=== PATIENT | female | born 1985 | race Caucasian/White ===

== ENCOUNTER 2017-02-17 15:07 | Emergency (ER) | payer BC ==
[~2017-02-17] VITALS: Ht 157.5 cm; Wt 80.4 kg
[~2017-02-17 15:07] MED LIST: FLUO20CA37 PO; FLUO40CA8 PO; HYDR-5688 PO; LOSA50TA6 PO
[2017-02-17 15:11] VITALS: Ht 157.5 cm; Wt 80.4 kg
[2017-02-17 15:27] VITALS: O2SAT 97
[2017-02-17 15:39] LABS: BASO % 0.6 %; BASO ABS # 0.05 K/uL (0-0.2); COMPLETE YES; EOS % 1.2 %; HEMATOCRIT 40.7 % (37-47); IG% 0.2 %; LYMPH % 33.5 %; LYMPH ABS # 2.99 K/uL (1.2-3.4); MEAN CELL VOLUME 87.5 fL (80-100); MEAN CORPUSCULAR HEMOGLOBIN 29.5 pg (25-34); MEAN CORPUSCULAR HGB CONC 33.7 g/dl (32-36); MEAN PLATELET VOLUME 10.3 fL (7.4-10.4); MONO % 8.7 %; NEUT % 55.8 %; PLATELET COUNT 248 K/uL (130-400); RED BLOOD COUNT 4.65 M/uL (4.2-5.4); WHITE BLOOD COUNT 8.92 K/uL (4.8-10.8)
[2017-02-17 15:51] LABS: PREG INTERNAL NEGATIVE QC NEG CLEAR BACKGROUND; PREG INTERNAL POSITIVE QC POS CONTROL LINE
[2017-02-17 15:54] LABS: BLOOD UREA NITROGEN 11 mg/dl (7-18); BUN/CREATININE RATIO 13.3 (10-20); CALCIUM 8.6 mg/dl (8.5-10.1); CARBON DIOXIDE 24 mmol/L (21-32); CHLORIDE 109 mmol/L (98-107); CREATININE 0.79 mg/dl (0.60-1.20); GLUCOSE 89 mg/dl (70-99); POTASSIUM 3.7 mmol/L (3.5-5.1); SODIUM 141 mmol/L (136-145)
--- NOTE | 2017-02-17 15:57 | DIAGNOSTIC IMAGING REPORT ---
CHEST ONE VIEW PORTABLE CLINICAL HISTORY: CHEST PAIN dyspnea COMPARISON STUDY: No previous studies for comparison. FINDINGS: The bones soft tissues and hemidiaphragms are normal. The cardiomediastinal silhouette is normal. The lungs are clear. The pulmonary vasculature is normal. IMPRESSION: Negative chest. Electronically signed by: Connor Sanchez M.D. 02/17/2017 3:55 PM Dictated Date/Time: 02/17/2017 3:51 PM
[2017-02-17 16:05] LABS: ALKALINE PHOSPHATASE 76 U/L (45-117); ALT/SGPT 28 U/L (12-78); AST/SGOT 19 U/L (15-37); CKMB/CK RATIO 1.1 (0-3.0)
[2017-02-17] MEDS ORDERED: FLUO10CA48 PO (16:10)
[2017-02-17 17:45] LABS: URINE APPEARANCE CLEAR (CLEAR); URINE BILIRUBIN NEG (NEG); URINE COLOR YELLOW; URINE NITRITE NEG (NEG); URINE SPECIFIC GRAVITY 1.024 (1.000-1.030); UROBILINOGEN NEG (NEG)
[2017-02-17 17:49] LABS: MANUAL MICROSCOPIC REQUIRED? NO; REVIEW REQ? NO
[2017-02-17 17:58] VITALS: BP 147/101; PULSE 71; TEMP 36.8; O2SAT 97
--- NOTE | 2017-02-18 00:42 | EMERGENCY ROOM VISIT NOTE ---
History Report prepared by [place]: Carolann Monte Under the Supervision of: Dr. Leon Yanez M.D. First contact with patient: 15:15 Chief Complaint: CHEST PAIN Stated Complaint: CP, HYPERTENSION SINCE LAST EVENING Nursing Triage Summary: Triage Notes: "Patient reports sharp pain in left chest that started last night. Patient denies radiation of pain states that she has tingling in her right arm that also began last night. Patient sent from [facility] for evaluation." History of Present Illness The patient is a 32 year old female who presents to the Emergency Room with complaints of improved left sided chest pain that began last night. Initially, her pain was a 9/10 in severity. She was unable to sleep secondary to her pain. She took an aspirin and was finally able to fall asleep. This morning when she went to work, her pain persisted and her left arm was tingling. This afternoon, she was seen at [facility]. Her EKG and chest x-ray were unremarkable. She given more aspirin at [facility] and was referred to the emergency room. Currently, her pain is tolerable. It has not changed with eating or drinking. She currently complains of nausea. There is a family history of heart disease, including her grandmother who had her first heart attack in her 30s. Her grandmother was not a smoker. The patient uses [employer]. The patient does not have a personal history of heart disease or blood clots. She is on 5 mg Losartan for hypertension. She has been compliant with her medication and has not missed any doses. Pt denies LOC, headache, fevers, chills, diaphoresis, visual changes, neck pain, tearing pain radiating to the back, personal history or family history of aneurysm or pulmonary embolism, uncontrolled hypertension, breathing difficulties, leg swelling, coagulation abnormalities, prolonged travel, recent surgery or immobilization, vomiting, abdominal pain, melena, hematochezia, urinary symptoms, numbness, weakness, lymphadenopathy, rash, or other complaints. Source of History: patient Onset: last night Position: chest (left) Timing: other (improved) Modifying Factors (Relieving): other (aspirin) Associated Symptoms: + nausea Note: Other symptoms: left arm tingling Review of Systems See HPI for pertinent positives and negatives. A total of ten systems were reviewed and were otherwise negative. Past Medical & Surgical Medical Problems: (1) Kidney stone Family History Patient reports no known family medical history. Social History Smoking Status: Current Every Day Smoker Housing Status: lives with significant other Occupation Status: employed Current/Historical Medications Scheduled Fluoxetine (Prozac), 10 MG PO PM Fluoxetine Hcl (Prozac), 40 MG PO QAM Losartan Potassium (Cozaar), 50 MG PO QAM Allergies Coded Allergies: No Known Allergies (Unverified , 02/17/17) Physical Exam Vital Signs Date Time Temp Pulse Resp B/P Pulse Ox O2 Delivery O2 Flow Rate FiO2 02/17/17 17:58 36.8 71 22 147/101 97 02/17/17 17:31 147/101 02/17/17 16:47 71 22 97 02/17/17 16:42 68 24 02/17/17 16:12 71 23 97 02/17/17 16:07 86 20 129/88 95 Room Air 02/17/17 16:01 129/88 02/17/17 15:37 76 22 98 02/17/17 15:31 139/98 02/17/17 15:30 82 02/17/17 15:28 147/103 02/17/17 15:27 97 Room Air 02/17/17 15:26 97 Room Air 02/17/17 15:25 86 20 163/100 97 Room Air 02/17/17 15:23 163/100 02/17/17 15:19 99 Room Air 02/17/17 15:11 36.8 70 20 162/113 97 Physical Exam GENERAL: Awake, alert, well-appearing, in no distress HENT: Normocephalic, atraumatic. Oropharynx unremarkable. EYES: Normal conjunctiva. Sclera non-icteric. NECK: Supple. No nuchal rigidity. FROM. No JVD. RESPIRATORY: Clear to auscultation. CARDIAC: Regular rate, normal rhythm. Extremities warm and well perfused. Pulses equal. ABDOMEN: Soft, non-distended. No tenderness to palpation. No rebound or guarding. No masses. RECTAL: Deferred. MUSCULOSKELETAL: Chest examination reveals no tenderness. The back is symmetrical on inspection without obvious abnormality. There is no CVA tenderness to palpation. No joint edema. LOWER EXTREMITIES: Calves are equal size bilaterally and non-tender. No edema. No discoloration. NEURO: Normal sensorium. No sensory or motor deficits noted. SKIN: No rash or jaundice noted. Medical Decision & Procedures ER Provider Diagnostic Interpretation: Radiology results as stated below per my review and radiologist interpretation CHEST ONE VIEW PORTABLE CLINICAL HISTORY: CHEST PAIN dyspnea COMPARISON STUDY: No previous studies for comparison. FINDINGS: The bones soft tissues and hemidiaphragms are normal. The cardiomediastinal silhouette is normal. The lungs are clear. The pulmonary vasculature is normal. IMPRESSION: Negative chest. Electronically signed by: Connor Sanchez M.D. 02/17/2017 3:55 PM Dictated Date/Time: 02/17/2017 3:51 PM Laboratory Results 02/17/17 15:23 Red Blood Count 4.65, Mean Corpuscular Volume 87.5, Mean Corpuscular Hemoglobin 29.5, Mean Corpuscular Hemoglobin Concent 33.7, Mean Platelet Volume 10.3, Neutrophils (%) (Auto) 55.8, Lymphocytes (%) (Auto) 33.5, Monocytes (%) (Auto) 8.7, Eosinophils (%) (Auto) 1.2, Basophils (%) (Auto) 0.6, Neutrophils # (Auto) 4.97, Lymphocytes # (Auto) 2.99, Monocytes # (Auto) 0.78, Eosinophils # (Auto) 0.11, Basophils # (Auto) 0.05 02/17/17 15:23 Test 02/17/17 15:23 02/17/17 15:31 02/17/17 17:30 White Blood Count 8.92 K/uL (4.8-10.8) Red Blood Count 4.65 M/uL (4.2-5.4) Hemoglobin 13.7 g/dL (12.0-16.0) Hematocrit 40.7 % (37-47) Mean Corpuscular Volume 87.5 fL (80-100) Mean Corpuscular Hemoglobin 29.5 pg (25-34) Mean Corpuscular Hemoglobin Concent 33.7 g/dl (32-36) Platelet Count 248 K/uL (130-400) Mean Platelet Volume 10.3 fL (7.4-10.4) Neutrophils (%) (Auto) 55.8 % Lymphocytes (%) (Auto) 33.5 % Monocytes (%) (Auto) 8.7 % Eosinophils (%) (Auto) 1.2 % Basophils (%) (Auto) 0.6 % Neutrophils # (Auto) 4.97 K/uL (1.4-6.5) Lymphocytes # (Auto) 2.99 K/uL (1.2-3.4) Monocytes # (Auto) 0.78 K/uL (0.11-0.59) Eosinophils # (Auto) 0.11 K/uL (0-0.5) Basophils # (Auto) 0.05 K/uL (0-0.2) RDW Standard Deviation 40.8 fL (36.4-46.3) RDW Coefficient of Variation 12.8 % (11.5-14.5) Immature Granulocyte % (Auto) 0.2 % Immature Granulocyte # (Auto) 0.02 K/uL (0.00-0.02) Anion Gap 8.0 mmol/L (3-11) Est Creatinine Clear Calc Drug Dose 101.4 ml/min Estimated GFR () 115.6 Estimated GFR (Non- 99.8 BUN/Creatinine Ratio 13.3 (10-20) Calcium Level 8.6 mg/dl (8.5-10.1) Total Bilirubin 0.3 mg/dl (0.2-1) Direct Bilirubin < 0.1 mg/dl (0-0.2) Aspartate Amino Transf (AST/SGOT) 19 U/L (15-37) Alanine Aminotransferase (ALT/SGPT) 28 U/L (12-78) Alkaline Phosphatase 76 U/L (45-117) Total Creatine Kinase 123 U/L (26-192) Creatine Kinase MB 1.3 ng/ml (0.5-3.6) Creatine Kinase MB Ratio 1.1 (0-3.0) Total Protein 7.3 gm/dl (6.4-8.2) Albumin 4.2 gm/dl (3.4-5.0) Lipase 104 U/L (73-393) Thyroid Stimulating Hormone (TSH) 1.850 uIu/ml (0.300-4.500) Human Chorionic Gonadotropin, Qual NEG (NEG) Bedside D-Dimer 288 ng/mlFEU (0-450) Bedside Troponin I 0.000 ng/ml (0-0.045) Urine Color YELLOW Urine Appearance CLEAR (CLEAR) Urine pH 5.0 (4.5-7.5) Urine Specific [place] 1.024 (1.000-1.030) Urine Protein NEG (NEG) Urine Glucose (UA) NEG (NEG) Urine Ketones NEG (NEG) Urine Occult Blood 3+ (NEG) Urine Nitrite NEG (NEG) Urine Bilirubin NEG (NEG) Urine Urobilinogen NEG (NEG) Urine Leukocyte Esterase NEG (NEG) Urine WBC (Auto) 1-5 /hpf (0-5) Urine RBC (Auto) 5-10 /hpf (0-4) Urine Hyaline Casts (Auto) 0 /lpf (0-5) Urine Epithelial Cells (Auto) 5-10 /lpf (0-5) Urine Bacteria (Auto) NEG (NEG) Laboratory results reviewed by me ECG Indication: chest pain Rate (beats per minute): 84 Rhythm: normal sinus Findings: no acute ischemic change, no ectopy, other (no pericarditis) Change: Pre-hospital EKG: Sinus rhythm at 82 BPM, no ectopy, no ischemia, no pericarditis. ED Course 1521: The patient was evaluated in room B2. A complete history and physical exam was performed. 1740: I reevaluated the patient. Discussed results and discharge instructions. She was reassured by her test results and did not want anything more for pain. She will use over the counter medications and agreed to follow up with her PCP. The patient is ready for discharge. Medical Decision Triage Nursing notes reviewed. The patient's presentation and history were concerning for chest pain. Etiologies such as cardiac ischemia, aortic dissection, pulmonary embolism, pneumonia, pneumothorax, musculoskeletal, infections, gastrointestinal, as well as others were entertained. The patient had a normal ECG x 2. Patient's CBC, LFTs, lipase, chemistry panel , cardiac markers, d-dimer and urinalysis were unremarkable. Chest x-ray was unremarkable. On reassessment she was still noting some discomfort but did not want any analgesia. She was reassured by the negative testing. As she has had pain since yesterday and it has been constant her blood work should show issues if this was heart related. She notes no exertional symptoms either. I suspect a musculoskeletal source or possible pleurisy. The patient does have some mild hypertension. She will follow-up closely as an outpatient. If she worsens in any way she will be back. I gave my usual and customary discussion regarding this issue. By the evaluation outlined above other emergent etiologies such as those listed in the differential, as well as others, were deemed relatively unlikely. The patient was informed about the findings as listed above. All questions were answered and she was pleased with the treatment. Return instructions were outlined and the patient was discharged in stable condition. The patient was referred to her PCP for follow-up for a recheck of the current condition. The chart was completed utilizing [employer] Speech voice recognition software. Grammatical errors, random word insertions, pronoun errors, and incomplete sentences are an occasional consequence of this system due to software limitations, ambient noise, and hardware issues. Any formal questions or concerns about the content, text, or information contained within the body of this dictation should be directly addressed to the physician for clarification. Impression Primary Impression: Substernal chest pain Scribe Attestation The scribe's documentation has been prepared under my direction and personally reviewed by me in its entirety. I confirm that the note above accurately reflects all work, treatment, procedures, and medical decision making performed by me. Departure Information Dispostion Home / Self-Care Referrals Colin Harper D.O.Int.Med. (PCP) Forms HOME CARE DOCUMENTATION FORM, IMPORTANT VISIT INFORMATION Patient Instructions My [facility] Additional Instructions CHEST PAIN INSTRUCTIONS: Ibuprofen(Motrin, Advil) may be used for fever or pain. Use 600mg every six hours as needed. Take with food. Avoid using more than 2400mg in a 24 hour period. Do not use 2400mg per day for more than three consecutive days without physician direction. Prolonged inappropriate use can lead to stomach upset or ulcers. (AND/OR) Acetaminophen(Tylenol) may be used for fever or pain. Use 1000mg every six hours as needed. Avoid using more than 4000mg in a 24 hour period. Rest and drink plenty of fluids as tolerated. Continue current medications. Avoid strenuous activities and anything that worsens your pain. Resume normal activities once your symptoms resolve. Return to the ER immediately for worsening or persistent chest pain, abdominal pain, vomiting, fevers, chest pains, difficulty breathing, worsening of your condition, or as needed. Follow up with your primary physician in 2-3 days for a recheck of your current condition and for your blood pressure.
[2017-04-28] MEDS ORDERED: ALPR0.25 PO (08:12)
== END 2017-02-17 17:59 | disposition home or self-care (01) ==
LOC: C.EDB 15:08
DX: R07.2 Precordial pain (principal); R11.0 Nausea; I10 Essential (primary) hypertension; Z82.49 Family history of ischemic heart disease and other diseases of the circulatory system; F17.210 Nicotine dependence, cigarettes, uncomplicated

== ENCOUNTER → 2017-03-30 | Outpatient (CLI) | payer BC ==
[~2017-03-30] MED LIST changes: +ALPR0.25 PO; +FLUO10CA48 PO; -FLUO20CA37 PO; -HYDR-5688 PO; +TRD10 PO
--- NOTE | 2017-03-30 16:19 | MAMMOGRAPHY REPORT ---
UNILATERAL RIGHT DIGITAL DIAGNOSTIC MAMMOGRAM TOMOSYNTHESIS WITH CAD AND TARGETED RIGHT ULTRASOUND: 03/30/2017 CLINICAL HISTORY: 32 year-old woman presents 6 months after an excisional biopsy of a mass in the 9: 00 right breast. Incidentally seen at pathology was a small focus of atypical ductal hyperplasia. Patient presents to establish new baseline after surgery, and has also been experiencing pain along the inferior and medial right breast over the past 2 weeks. TECHNIQUE: Right breast tomosynthesis in addition to standard 2D mammography was performed. Current study was also evaluated with a Computer Aided Detection (CAD) system. COMPARISON: Comparison is made to exams dated: 10/20/2016 breast MRI, 08/18/2016 mammogram, 08/18/2016 localization, 08/04/2016 mammogram, 01/28/2016 ultrasound biopsy, and 01/28/2016 mammogram - [facility]. BREAST COMPOSITION: The tissue of the right breast is heterogeneously dense, which may obscure smal l masses. FINDINGS: A dominant circumscribed mass with associated ribbon-shaped biopsy marker is no longer see n in the 9:00 middle and posterior right breast, concordant with the surgical excision. There are s cattered benign-appearing punctate microcalcifications. No suspicious mass, architectural distortio n or cluster of suspicious microcalcifications is seen. Real-time high-resolution ultrasound was performed along the inferior extending to 3:00 right breast , in the areas of pain pointed out by the patient. Incidental note is made of an anechoic benign st able cyst in the 8:00 right breast, 3 cm from the nipple, measuring 5.2 mm. Throughout the remainde r of the visualized right breast, normal fibroglandular tissue is seen without a suspicious solid or cystic mass. IMPRESSION: ACR-BI-RADS CATEGORY 3: PROBABLY BENIGN, TARGETED ULTRASOUND ACR-BI-RADS CATEGORY 3: IN OBABLY BENIGN 1. There is no suspicious mammographic or sonographic abnormality to explain the nonfocal right inf erior and medial mastalgia. Therefore, clinical follow-up is recommended. 2. Given the incidental finding of a small amount of atypia at pathology during excision of a domin ant right breast mass, would consider bilateral screening mammography in 6 months, particularly to e stablish baseline in the left breast. Then consider alternating mammography and MRI, given the dahiana ent's potential increased risk of developing breast cancer. These results and recommendations were discussed with the patient at the time of the exam. Approximately 10% of breast cancers are not detected with mammography. A negative mammographic repor t should not delay biopsy if a clinically suggestive mass is present. Janette Smallwood M.D. ay/:03/30/2017 15:01:16 Administrative Dietitian: Ludy SORENSEN(Horacio)(Alfred), [facility] letter sent: Follow Up Recommended 3 BI-RADS Code: ACR-BI-RADS Category 3: Probably Benign Ultrasound BI-RADS: ACR-BI-RADS Category 3: P robably Benign
== END | disposition home or self-care (01) ==
LOC: C.MAMM 09:51
PROVIDERS: ATTEND Internal Medicine Hematology & Oncology
DX: N64.4 Mastodynia (principal); R92.8 Other abnormal and inconclusive findings on diagnostic imaging of breast

== ENCOUNTER → 2017-04-20 | Outpatient (CLI) | payer BC | END | disposition home or self-care (01) | LOC: C.PAPS 11:52 | PROVIDERS: ATTEND Physician Assistant | DX: N92.6 Irregular menstruation, unspecified (principal) ==

== ENCOUNTER → 2017-05-03 | Outpatient (CLI) | payer BC ==
[2017-05-03 13:02] LABS: HEMATOCRIT 41.5 % (37-47); MEAN CELL VOLUME 88.5 fL (80-100); MEAN CORPUSCULAR HEMOGLOBIN 28.6 pg (25-34); MEAN CORPUSCULAR HGB CONC 32.3 g/dl (32-36); MEAN PLATELET VOLUME 10.4 fL (7.4-10.4); PLATELET COUNT 258 K/uL (130-400); RED BLOOD COUNT 4.69 M/uL (4.2-5.4); WHITE BLOOD COUNT 8.48 K/uL (4.8-10.8)
[2017-05-03 13:37] LABS: PREG INTERNAL NEGATIVE QC NEG CLEAR BACKGROUND; PREG INTERNAL POSITIVE QC POS CONTROL LINE
== END | disposition home or self-care (01) ==
LOC: C.LAB1850 12:24
PROVIDERS: ATTEND Obstetrics & Gynecology
DX: T83.32XA Displacement of intrauterine contraceptive device, initial encounter (principal); Y83.1 Surgical operation with implant of artificial internal device as the cause of abnormal reaction of the patient, or of later complication, without mention of misadventure at the time of the procedure; N93.9 Abnormal uterine and vaginal bleeding, unspecified

== ENCOUNTER → 2017-05-07 | Day surgery (SDC) | payer BC ==
[2017-04-28 08:12] VITALS: Ht 157.5 cm; Wt 77.3 kg
[~2017-05-07] VITALS: Ht 157.5 cm; Wt 77.3 kg
[~2017-05-07] MED LIST changes: +ATROPINE SULFATE 0.1 MG/ML 5ML SYR IV PRN; +BUPIVACAINE 0.5 % 5 MG/1 ML MPF 30ML VIAL ONE; +DEXAMETHASONE SOD INJ 4 MG/ML VIAL ONE; +EpHEDrine SULFATE INJ 50 MG/ML AMP IV PRN; +FENTANYL CITRATE INJ 50 MCG/1 ML 2 ML VIAL ONE; +FLUMAZENIL 0.1 MG/1 ML 10 ML VIAL IV PRN; +GLYCOPYRROLATE INJ 0.2 MG/ML VIAL ONE; +IBUPROFEN 600 MG TAB PO PRN; +KETOROLAC TROMETHAMINE 30 MG/ML VIAL IV. PRN; +KETOROLAC TROMETHAMINE 30 MG/ML VIAL ONE; +LABETALOL HCL IV 5 MG/ML 20ML IV PRN; +LACTATED RINGER'S 1000ML 1,000 ML IV SCH; +LIDOCAINE HCL 2% 2 ML VIAL (20MG/ML) ONE; +MIDAZOLAM HCL 1 MG/ML 2ML VIAL ONE; +NALOXONE HCL 0.4 MG/1 ML VIAL/CARP IV PRN; +NEOSTIGMINE METHYLSULFATE 5 MG/5 ML SYR ONE; +ONDANSETRON INJ 2 MG/ML 2 ML VIAL IV PRN; +ONDANSETRON INJ 2 MG/ML 2 ML VIAL ONE; +OXYCODONE/ACETAMINOPHEN 5-325 TAB PO PRN; +PROMETHAZINE HCL INJ 12.5 MG in SODIUM CHLORIDE 0.9% 50ML 50 ML IV PRN; +PROPOFOL IV EMULSION 10 MG/ML 20 ML VIAL IV ONE; +ROCURONIUM BROMIDE 10 MG/ML 5 ML VIAL ONE; +SODIUM CHLORIDE 0.9% 1000ML 1,000 ML IV SCH
[2017-05-07 05:47] VITALS: BP 147/99; PULSE 76; TEMP 37; O2SAT 96
--- NOTE | 2017-05-07 07:23 | History & Physical Bridge Note ---
H&P Re-Evaluation Bridge Note: I have examined the patient, reviewed the History & Physical and in the interval since the performance of the History & Physical I have noted the following changes of clinical significance: No changes noted. Today I confirmed with patient that she does want tubal ligation. She is sure she is done childbearing. She wants to have IUD mirena, placed after I remove the misplaced IUD to see if that can help her bleeding. We discussed all this before and these are her final decisions. She is aware of risks, alternatives and complications of all.
--- NOTE | 2017-05-07 08:58 | Discharge Instructions ---
Discharge Instructions Date of Service May 07, 2017. Admission Reason for Admission: Malpositioned Iud, Abnormal Uterine Bleeding, Enco Discharge Discharge Diagnosis / Problem: s/p surgery Discharge Goals Goal(s): Routine recovery after surgery Activity Recommendations Activity Limitations: as noted below . Instructions / Follow-Up Instructions / Follow-Up ACTIVITY RECOMMENDATIONS: * Rest the first 2-3 days. You should be back to your normal activity levels by day 3. * No heavy lifting for 2 weeks. * No intercourse, tampons or douching for 1-2 weeks. * You may shower the next day. * Do not drive anytime that you are taking narcotic pain medicines. RETURN TO SCHOOL/WORK: * May return to school or work after 1-2 days. DIET: Nausea may occur in the immediate post-operative period. If so, take clear liquids such as tea, bouillon, apple juice until all nausea has subsided, then resume usual diet. MEDICATIONS: Resume previous medications unless instructed otherwise by your surgeon. Ibuprofen 200mg 2-3 tablets every 4-6 hours as needed -- OR -- Aleve 2 tablets every 8-12 hours as needed for post-operative discomfort Medications are over the counter. Tylenol may be used if above medications are contraindicated or not preferred. Medication should be taken with food or milk. Do not take on an empty stomach. SPECIAL CARE INSTRUCTIONS: * Check temperature twice daily for one week. report any elevation over 101 degrees. * You may experience some vagina spotting and/or bleeding. This is normal for 1 -2 weeks and should not be heavier than a normal period. If it is unusual in amount, call your physician. * Post-operative discomfort may consist of a sore throat, a "bloated" feeling and pain in the shoulders. these are normal symptoms, which usually only last for 2-3 days. * Remove band-aids tomorrow and shower. There is no need to replace band-aids unless there is drainage or discomfort. FOLLOW UP VISIT: I planned for a post-operative visit on june 17 at 215pm, the office will call you wednesday to make sure its ok with you, I want to do an ultrasound the same day to check the IUD placement. Current Hospital Diet Patient's current hospital diet: Discharge Diet Recommended Diet: Regular Diet Procedures Procedures Performed: Hysteroscopy Dilation Currettage; Intrauterine device Removal and Reinsertion; Laparoscopic tubal ligation Pending Studies Studies pending at discharge: yes List of pending studies: pathology Medical Emergencies . Who to Call and When: Medical Emergencies: If at any time you feel your situation is an emergency, please call 911 immediately. . Non-Emergent Contact Non-Emergency issues call your: Account Development Associate . . "Provider Documentation" section prepared by Joyce Witt. . VTE Core Measure Inpt VTE Proph given/why not?: Treatment not indicated
--- NOTE | 2017-05-07 09:02 | [facility] Post Operative Brief Note ---
Immediate Operative Summary Operative Date May 07, 2017. Pre-Operative Diagnosis Malpositioned intrauterine device Abnormal uterine bleeding Encounter for Sterilization Post-Operative Diagnosis Same as preop Procedure(s) Performed Hysteroscopy Dilation Currettage; Intrauterine device Removal and Reinsertion; Biilateral laparoscopic tubal ligation Surgeon Dr. Witt Front Desk Representative Surgeon(s) none Estimated Blood Loss 0 ml Findings cervix visualized and stem of iud noted. with hysteroscope can see right arm of iud embedded in right cervix. uterus sounds to 9cm. extremely difficult cavity to at first visualize. large amount of curettings, ? polyp, cavity more normal shaped after curettage. ostia not well seen. saline deficit 410cc. laparoscopic findings--nl liver edge, normal uterus and ovaries bilaterally. normal fallopian tubes. evidence of endometriosis along left uterosacral ligament. no evidence of perforation of uterus, no fluid of significance in cul-de-sac. IUD placed as uterus observed with laparoscope and no issues identified. Fluids (cc crystalloids) 1100 Specimens Cultures of vagina sent for chlamydia/gonorrhea/RNA Permanent specimen A: endometrial curettings explanted IUD not sent to lab, as per surgeon Drains none Anesthesia general Complication(s) None Disposition Recovery Room / PACU
[2017-05-07] MEDS: HYDROmorphone INJ 1 MG/ML SYR IV PRN ×4 (09:05→09:20)
--- NOTE | 2017-05-07 09:29 | Anesthesiology Progress Note ---
Anesthesia Post Op Note Date & Time May 07, 2017 at 09:29 Vital Signs Pain Intensity: 5 Vital Signs Past 12 Hours Date Time Temp Pulse Resp B/P (MAP) Pulse Ox O2 Delivery O2 Flow Rate FiO2 05/07/17 09:25 36.7 82 16 138/95 91 Room Air 05/07/17 09:15 82 16 137/95 96 Oxymask 10 05/07/17 09:05 83 16 145/95 92 Oxymask 10 05/07/17 08:59 36.0 77 16 151/72 97 Oxymask 10 05/07/17 05:47 37 76 18 147/99 (115) 96 Room Air Notes Mental Status: alert / awake / arousable, participated in evaluation Pt Amnestic to Procedure: Yes Nausea / Vomiting: adequately controlled Pain: adequately controlled Airway Patency, RR, SpO2: stable & adequate BP & HR: stable & adequate Hydration State: stable & adequate Anesthetic Complications: no major complications apparent
--- NOTE | 2017-05-07 09:41 | OPERATIVE REPORT ---
DATE OF OPERATION: 05/07/2017 PREOPERATIVE DIAGNOSES: 1. Malpositioned intrauterine device. 2. Abnormal uterine bleeding. 3. Desires sterilization. POSTOPERATIVE DIAGNOSIS: Same. PROCEDURES: 1. Dilatation and curettage. 2. Hysteroscopy. 3. Removal of embedded IUD, reinsertion of IUD. 4. Bilateral laparoscopic tubal sterilization. SURGEON: Dr. Joyce Witt. BANK SECRECY ACT OFFICER: None. IV FLUIDS: 1100 mL. ANESTHESIA: General. EBL: Zero. FINDINGS: Hysteroscopic findings included embedded right arm of the IUD notably in the cervix. The cavity originally quite obscured by tissue. Large amounts of tissue noted at curettage and then cavity with more normal shape. [place] not seen. Uterus sounded to 9 cm. IUD strings trimmed to approximately 1 cm. Uterine descent under anesthesia, grade 2-3. The laparoscopic findings include normal liver edge, normal uterus, tubes and ovaries bilaterally. Endometriosis evident along the right uterosacral ligament. No other evidence of endometriosis. INDICATIONS: A 32-year-old 2, para 2 who presented to the office with malpositioned IUD that was attempted to be removed; however was unsuccessful. It was thought to be embedded and it was recommended that she proceed to the operating room. Of note, the patient received the IUD several years ago to try to control her vaginal bleeding as well, which is described as heavy periods. It never helped those symptoms and she never followed up. She is sure she has done her childbearing. She desired permanent sterilization today but also reattempt at insertion of Mirena IUD once the old one was removed in order to try to better control her vaginal bleeding. She was given many options and desired to proceed in this fashion. PROCEDURE: The patient was taken to the operating room and identified. After adequate general anesthesia was obtained, she was placed in the dorsal lithotomy position and prepped and draped in the usual sterile fashion. The bladder was drained for clear yellow urine. A weighted speculum and anterior retractor were placed to visualize the cervix which was grasped on its anterior lip with an Allis clamp. The stem of the Mirena IUD was visible. It was grasped and gently tugged upon however the IUD did not remove easily. For this reason, the hysteroscope was introduced. Using the hysteroscope in the cervical canal, it was evident that the right arm of the IUD was imbedded in the right aspect of the cervix. Using a grasper through the operating channel the arm was teased away and then the IUD was able to be removed with gentle traction. The IUD was discarded. At this point, the cervix was dilated to 23 using Hegar dilators. The uterus sounded to 9 cm. The hysteroscope was introduced and the cavity was difficult to see and distention was difficult. There was evidence of significant tissue but the saline deficit had already climbed to 300 mL. For that reason, the hysteroscopy portion of the procedure was paused in order to evaluate if there was any perforation or excess fluid in the pelvis that could indicate perforation via laparoscopy since laparoscopy was planned due to the patient's desire for sterilization by tubal coagulation. The acorn uterine manipulator was gently placed through the cervical os and connected to the Allis clamp that remained to allow for uterine manipulation and the weighted speculum was removed. The bladder was drained again. At this point, the patient was repositioned in flat positioning as she had been placed in Trendelenburg and the seal extrusion operator went to the abdomen. A knife was used to create an infraumbilical skin incision and a Veress needle was placed intraperitoneally with an opening pressure of 6 mmHg. A CO2 pneumoperitoneum was created. The skin incision was stretched and the 12 mm trocar was placed using the straight camera into the abdomen. Once intraperitoneal entry was noted the laparoscope was switched to the operating scope. The patient was placed in steep Trendelenburg. Using a blunt probe, the bowel was teased away from the planned operative santos and the uterus was manipulated in order to visualize the pelvis and abdomen with the findings as noted above. The right fallopian tube was put on stretch. The Kleppinger forceps was used with an impedance monitor to coagulate the right fallopian tube in approximately a 3 cm segment 2-3 cm from the right cornua. Left fallopian tube was identified and coagulated in a similar fashion. There was no excess fluid noted within the pelvic cavity and therefore perforation was not suspected. At this point, the certified pharmacist assistant RN held the laparoscope while the surgeon then went back down to do hysteroscopy. The uterus was curettaged to a gritty consistency. The hysteroscope was reintroduced and the cavity was better visualized as noted above. There did not seem to be any distortion of the cavity or lesion or reason not to retry placement of IUD. For that reason, the Mirena IUD was prepared, placed and the strings were trimmed to approximately 1 cm. As the procedure was viewed laparoscopically there did not appear to be any perforation or misplacement of the IUD and again there was no excess fluid in the pelvis to indicate possible prior perforation. At this point the procedures were terminated. All the instruments were removed. The laparoscope was removed. The CO2 gas was allowed to escape from the patient's abdomen and the trocar was removed. The infraumbilical incision was closed with a single interrupted 0 Vicryl suture in the subcutaneous tissue followed by 4-0 Vicryl in a subcuticular fashion at the skin. Dermabond was applied. The patient was returned to supine position. She was awoken from anesthesia and transferred to recovery room in stable condition. All sponge, lap and needle counts were correct x2. I attest to the content of the Intraoperative Record and any orders documented therein. Any exceptions are noted below. MTDD
[2017-05-07 09:50] VITALS: BP 152/70; PULSE 72; TEMP 36.8; O2SAT 97
[2017-05-07 10:20] VITALS: BP 140/81; PULSE 76; TEMP 36.8; O2SAT 95
[2017-05-10 07:28] LABS: CHLAMYDIA TRACH RNA*** NOT DETECTED (NOT DETECTED); GC (NEIS GONORRHOEAE)RNA** NOT DETECTED (NOT DETECTED)
== END | disposition home or self-care (01) ==
LOC: C.ACU 05:25
PROVIDERS: ATTEND Obstetrics & Gynecology
DX: T83.32XA Displacement of intrauterine contraceptive device, initial encounter (principal); Y83.8 Other surgical procedures as the cause of abnormal reaction of the patient, or of later complication, without mention of misadventure at the time of the procedure; Z30.2 Encounter for sterilization; N93.9 Abnormal uterine and vaginal bleeding, unspecified; I10 Essential (primary) hypertension; F42.9 Obsessive-compulsive disorder, unspecified; E53.8 Deficiency of other specified B group vitamins; Z82.49 Family history of ischemic heart disease and other diseases of the circulatory system; Z83.3 Family history of diabetes mellitus; Z82.3 Family history of stroke; Z79.899 Other long term (current) drug therapy

== ENCOUNTER 2017-08-29 06:10 | Emergency (ER) | payer BC ==
[~2017-08-29] VITALS: Ht 157.5 cm; Wt 83.6 kg
[~2017-08-29 06:10] MED LIST changes: -ATROPINE SULFATE 0.1 MG/ML 5ML SYR IV PRN; -BUPIVACAINE 0.5 % 5 MG/1 ML MPF 30ML VIAL ONE; -DEXAMETHASONE SOD INJ 4 MG/ML VIAL ONE; -EpHEDrine SULFATE INJ 50 MG/ML AMP IV PRN; -FENTANYL CITRATE INJ 50 MCG/1 ML 2 ML VIAL ONE; -FLUMAZENIL 0.1 MG/1 ML 10 ML VIAL IV PRN; -GLYCOPYRROLATE INJ 0.2 MG/ML VIAL ONE; -IBUPROFEN 600 MG TAB PO PRN; -KETOROLAC TROMETHAMINE 30 MG/ML VIAL IV. PRN; -KETOROLAC TROMETHAMINE 30 MG/ML VIAL ONE; -LABETALOL HCL IV 5 MG/ML 20ML IV PRN; -LACTATED RINGER'S 1000ML 1,000 ML IV SCH; -LIDOCAINE HCL 2% 2 ML VIAL (20MG/ML) ONE; -MIDAZOLAM HCL 1 MG/ML 2ML VIAL ONE; -NALOXONE HCL 0.4 MG/1 ML VIAL/CARP IV PRN; -NEOSTIGMINE METHYLSULFATE 5 MG/5 ML SYR ONE; -ONDANSETRON INJ 2 MG/ML 2 ML VIAL IV PRN; -ONDANSETRON INJ 2 MG/ML 2 ML VIAL ONE; -OXYCODONE/ACETAMINOPHEN 5-325 TAB PO PRN; -PROMETHAZINE HCL INJ 12.5 MG in SODIUM CHLORIDE 0.9% 50ML 50 ML IV PRN; -PROPOFOL IV EMULSION 10 MG/ML 20 ML VIAL IV ONE; -ROCURONIUM BROMIDE 10 MG/ML 5 ML VIAL ONE; -SODIUM CHLORIDE 0.9% 1000ML 1,000 ML IV SCH; -TRD10 PO
[2017-08-29 06:11] VITALS: TEMP 36.9; Ht 157.5 cm; Wt 83.6 kg
[2017-08-29] MEDS ORDERED: ONDANSETRON INJ 2 MG/ML 2 ML VIAL IV STA (06:41)
[2017-08-29] MEDS ORDERED: MoRPHine SULFATE 4 MG/ML 1 ML CARP\\VIAL IV STA (06:41)
[2017-08-29] MEDS ORDERED: SODIUM CHLORIDE 0.9% 1000ML 1,000 ML IV STA (06:41)
[2017-08-29] MEDS ORDERED: SODIUM CHLORIDE 0.9% 500ML 500 ML IV STA (06:41)
[2017-08-29 06:56] LABS: BASO % 0.4 %; BASO ABS # 0.04 K/uL (0-0.2); COMPLETE YES; EOS % 2.3 %; HEMATOCRIT 41.9 % (37-47); IG% 0.6 %; LYMPH % 20.9 %; LYMPH ABS # 2.11 K/uL (1.2-3.4); MEAN CELL VOLUME 86.9 fL (80-100); MEAN CORPUSCULAR HEMOGLOBIN 28.2 pg (25-34); MEAN CORPUSCULAR HGB CONC 32.5 g/dl (32-36); MEAN PLATELET VOLUME 9.5 fL (7.4-10.4); MONO % 9.5 %; NEUT % 66.3 %; PLATELET COUNT 254 K/uL (130-400); RED BLOOD COUNT 4.82 M/uL (4.2-5.4); WHITE BLOOD COUNT 10.09 K/uL (4.8-10.8)
[2017-08-29 07:06] LABS: ALT/SGPT 24 U/L (12-78); AST/SGOT 12 U/L (15-37); BLOOD UREA NITROGEN 13 mg/dl (7-18); BUN/CREATININE RATIO 14.5 (10-20); CALCIUM 8.4 mg/dl (8.5-10.1); CARBON DIOXIDE 24 mmol/L (21-32); CHLORIDE 105 mmol/L (98-107); CREATININE 0.87 mg/dl (0.60-1.20); GLUCOSE 98 mg/dl (70-99); MAGNESIUM 2.3 mg/dl (1.8-2.4); POTASSIUM 3.9 mmol/L (3.5-5.1); SODIUM 138 mmol/L (136-145)
[2017-08-29 07:09] LABS: ALKALINE PHOSPHATASE 96 U/L (45-117)
--- NOTE | 2017-08-29 07:14 | EMERGENCY ROOM VISIT NOTE ---
History Report prepared by [place]enton: Louis Miller Under the Supervision of: Dr. Paty Roland M.D. First contact with patient: 06:34 Chief Complaint: ABDOMINAL PAIN Stated Complaint: SEVERE ABDOMINAL PAIN Nursing Triage Summary: Pt reports mid abd pain that began yesterday at 1100. Denies n/v/d. Pt states, "I was perfectly fine at a baseball game then all the sudden got these shooting pains." Denies urinary s/sx. History of Present Illness The patient is a 32 year old female who presents to the Emergency Room with complaints of constant severe abdominal pain beginning yesterday at 1100. The patient states that she was at a baseball game with her family and had to leave when she began experiencing "excruciating" abdominal pain. She denies eating anything at the game, and notes that she tried taking a laxative and was able to have a bowel movement with no relief to her symptoms. She notes that the pain does not worsen with deep breaths. She denies any vomiting, diarrhea, painful urination, or changes in her bowel movements. The patient has a previous history of hypertension and OCD, and notes that she takes Prozac for her OCD symptoms. Source of History: patient Onset: 1100 yesterday Position: abdomen Symptom Intensity: excruciating Timing: constant Modifying Factors (Worsening): other (does not worsen with deep breathing) Associated Symptoms: No vomiting, No diarrhea, No urinary symptoms Note: no changes in her bowel movements Review of Systems See HPI for pertinent positives & negatives. A total of 10 systems reviewed and were otherwise negative. Past Medical & Surgical Medical Problems: (1) Kidney stone Family History Patient reports no known family medical history. Social History Smoking Status: Current Every Day Smoker Alcohol Use: occasionally Drug Use: none Marital Status: Housing Status: lives with significant other Occupation Status: employed Current/Historical Medications Scheduled Fluoxetine (Prozac), 10 MG PO PM Fluoxetine Hcl (Prozac), 40 MG PO QAM Losartan Potassium (Cozaar), 50 MG PO QAM Scheduled PRN Alprazolam (Xanax), 0.25 MG PO DAILY PRN for Anxiety Ketorolac Tromethamine (Ketorolac Tromethamine), 1 TAB PO UD PRN for NECK PAIN Allergies Coded Allergies: No Known Allergies (Unverified , 08/29/17) Physical Exam Vital Signs Date Time Temp Pulse Resp B/P (MAP) Pulse Ox O2 Delivery O2 Flow Rate FiO2 08/29/17 11:30 156/113 08/29/17 11:10 90 20 95 08/29/17 11:00 150/106 08/29/17 10:44 95 08/29/17 10:41 159/114 08/29/17 10:26 95 20 166/111 98 Room Air 08/29/17 09:54 93 20 175/117 98 Room Air 08/29/17 07:42 90 20 168/116 97 Room Air 08/29/17 06:11 36.9 103 18 179/128 98 Room Air Physical Exam Vital signs reviewed. General: Well-appearing, some discomfort, in no significant distress. HEENT: No scleral icterus, PERRLA, neck supple. Atraumatic. Cardiovascular: Regular rate and rhythm, no extra sounds. Pulmonary: Clear to auscultation bilaterally, normal work of breathing. Abdomen: Holding upper abdomen, mild tenderness to epigastric region, no rebound or guarding, no CVA tenderness, soft, nondistended, positive bowel sounds. Musculoskeletal: Atraumatic, no peripheral edema. Neurologic: Patient awake alert and oriented x 3 Skin: Warm, dry, no rash Medical Decision & Procedures ER Provider Diagnostic Interpretation: Radiology results as stated below per my review and radiologist interpretation: CHEST ONE VIEW PORTABLE HISTORY: Right-sided chest pain. COMPARISON: Chest 02/17/2017. FINDINGS: The lungs are clear. Cardiac silhouette is normal in size. No pleural effusions. No pneumothorax. IMPRESSION: No acute process. Electronically signed by: Tito Enriquez M.D. 08/29/2017 8:12 AM ABDOMINAL ULTRASOUND, RIGHT UPPER QUADRANT HISTORY: RUQ pain. COMPARISON: Abdomen and pelvis CT 01/14/2016. FINDINGS: Pancreas: The pancreas demonstrates a normal echotexture. Liver: No hepatic masses. 22 cm in length. Gallbladder: No gallbladder wall thickening. No gallstones. CBD: 5 mm. Right kidney: No hydronephrosis. IMPRESSION: 1. Normal gallbladder. No gallstones. 2. Mild hepatomegaly. Electronically signed by: Tito Enriquez M.D. 08/29/2017 7:49 AM ABDOMEN AND PELVIS CT WITH IV CONTRAST CT DOSE: 542.22 mGy.cm HISTORY: Epigastric abdominal pain. TECHNIQUE: Multiaxial CT images of the abdomen and pelvis were performed following the use of intravenous contrast. A dose lowering technique was utilized adhering to the principles of ALARA. COMPARISON STUDY: Abdomen and pelvis CT 01/14/2016. FINDINGS: The lung bases are clear. No pneumoperitoneum. No pneumatosis. No fractures within the visualized osseous structures. The liver, gallbladder, pancreas, spleen, and adrenal glands are unremarkable. There is a subcentimeter hypodense lesions seen within each kidney with the largest on the right measuring 7 mm. These are too small to characterize. No hydronephrosis. No retroperitoneal lymphadenopathy. 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 There is inflammatory change surrounding the thrombosed superior mesenteric artery. Therefore, this likely represents an acute thrombosis. The celiac artery and aorta are patent. The renal arteries are patent. No bowel wall thickening or obstruction at this time. Prior appendectomy. An intrauterine device is in good position. Normal bladder. IMPRESSION: 1. 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 There is distention of the superior mesenteric artery with surrounding inflammatory change suggestive of an acute thrombosis. This most likely represents an acute dissection. However, an underlying vasculitis could also have a similar appearance. 2. No evidence for bowel wall thickening at this time to suggest ischemic change. 3. Findings were discussed with Dr. Paty Roland at 10:10 AM on 08/29/2017. Electronically signed by: Tito Enriquez M.D. 08/29/2017 10:08 AM Laboratory Results 08/29/17 06:42 Red Blood Count 4.82, Mean Corpuscular Volume 86.9, Mean Corpuscular Hemoglobin 28.2, Mean Corpuscular Hemoglobin Concent 32.5, Mean Platelet Volume 9.5, Neutrophils (%) (Auto) 66.3, Lymphocytes (%) (Auto) 20.9, Monocytes (%) (Auto) 9.5, Eosinophils (%) (Auto) 2.3, Basophils (%) (Auto) 0.4, Neutrophils # (Auto) 6.69, Lymphocytes # (Auto) 2.11, Monocytes # (Auto) 0.96, Eosinophils # (Auto) 0.23, Basophils # (Auto) 0.04 08/29/17 06:42 Test 08/29/17 06:42 08/29/17 06:54 08/29/17 10:31 White Blood Count 10.09 K/uL (4.8-10.8) Red Blood Count 4.82 M/uL (4.2-5.4) Hemoglobin 13.6 g/dL (12.0-16.0) Hematocrit 41.9 % (37-47) Mean Corpuscular Volume 86.9 fL (80-100) Mean Corpuscular Hemoglobin 28.2 pg (25-34) Mean Corpuscular Hemoglobin Concent 32.5 g/dl (32-36) Platelet Count 254 K/uL (130-400) Mean Platelet Volume 9.5 fL (7.4-10.4) Neutrophils (%) (Auto) 66.3 % Lymphocytes (%) (Auto) 20.9 % Monocytes (%) (Auto) 9.5 % Eosinophils (%) (Auto) 2.3 % Basophils (%) (Auto) 0.4 % Neutrophils # (Auto) 6.69 K/uL (1.4-6.5) Lymphocytes # (Auto) 2.11 K/uL (1.2-3.4) Monocytes # (Auto) 0.96 K/uL (0.11-0.59) Eosinophils # (Auto) 0.23 K/uL (0-0.5) Basophils # (Auto) 0.04 K/uL (0-0.2) RDW Standard Deviation 42.0 fL (36.4-46.3) RDW Coefficient of Variation 13.2 % (11.5-14.5) Immature Granulocyte % (Auto) 0.6 % Immature Granulocyte # (Auto) 0.06 K/uL (0.00-0.02) Nucleated RBC Absolute Count (auto) 0.02 K/uL (0-0) Nucleated Red Blood Cells % 0.2 % Anion Gap 9.0 mmol/L (3-11) Est Creatinine Clear Calc Drug Dose 93.9 ml/min Estimated GFR () 102.9 Estimated GFR (Non- 88.8 BUN/Creatinine Ratio 14.5 (10-20) Calcium Level 8.4 mg/dl (8.5-10.1) Magnesium Level 2.3 mg/dl (1.8-2.4) Total Bilirubin 0.5 mg/dl (0.2-1) Direct Bilirubin < 0.1 mg/dl (0-0.2) Aspartate Amino Transf (AST/SGOT) 12 U/L (15-37) Alanine Aminotransferase (ALT/SGPT) 24 U/L (12-78) Alkaline Phosphatase 96 U/L (45-117) Total Protein 7.2 gm/dl (6.4-8.2) Albumin 4.0 gm/dl (3.4-5.0) Lipase 111 U/L (73-393) Urine Color YELLOW Urine Appearance CLEAR (CLEAR) Urine pH 7.0 (4.5-7.5) Urine Specific [place] 1.005 (1.000-1.030) Urine Protein NEG (NEG) Urine Glucose (UA) NEG (NEG) Urine Ketones NEG (NEG) Urine Occult Blood 1+ (NEG) Urine Nitrite NEG (NEG) Urine Bilirubin NEG (NEG) Urine Urobilinogen NEG (NEG) Urine Leukocyte Esterase MODERATE (NEG) Urine WBC (Auto) 5-10 /hpf (0-5) Urine RBC (Auto) 0-4 /hpf (0-4) Urine Hyaline Casts (Auto) 1-5 /lpf (0-5) Urine Epithelial Cells (Auto) >30 /lpf (0-5) Urine Bacteria (Auto) 1+ (NEG) Urine Test NEG (NEG) Prothrombin Time 10.8 SECONDS (9.0-12.0) Prothromb Time International Ratio 1.0 (0.9-1.1) Activated Partial Thromboplast Time 27.8 SECONDS (21.0-31.0) Partial Thromboplastin Ratio 1.1 Laboratory results per my review. Medications Administered Medications (Trade) Dose Ordered Sig/Alfa Route Start Time Stop Time Status Last Admin Dose Admin Sodium Chloride 500 ml @ 999 mls/hr Q31M STAT IV 08/29/17 06:41 08/29/17 07:11 DC 08/29/17 06:50 999 MLS/HR Sodium Chloride 1,000 ml @ 125 mls/hr Q8H STAT IV 08/29/17 06:41 08/29/17 14:22 DC 08/29/17 07:48 125 MLS/HR Morphine Sulfate (MoRPHine SULFATE INJ) 4 mg NOW STAT IV 08/29/17 06:41 08/29/17 06:43 DC 08/29/17 06:50 4 MG Ondansetron HCl (Zofran Inj) 4 mg NOW STAT IV 08/29/17 06:41 08/29/17 06:43 DC 08/29/17 06:49 4 MG Morphine Sulfate (MoRPHine SULFATE INJ) 6 mg NOW STAT IV 08/29/17 08:47 08/29/17 08:48 DC 08/29/17 09:00 6 MG Morphine Sulfate (MoRPHine SULFATE INJ) 6 mg NOW STAT IV 08/29/17 10:13 08/29/17 10:14 DC 08/29/17 10:26 6 MG Labetalol HCl (Normodyne IV) 10 mg NOW STAT IV 08/29/17 10:29 08/29/17 10:31 DC 08/29/17 10:57 10 MG Heparin Sodium/ Dextrose (Heparin 25,000 Unit/500ml D5W) 25,000 unit STK-MED ONCE .ROUTE 08/29/17 10:32 08/29/17 10:33 DC 08/29/17 10:47 25,000 UNIT Heparin Sodium (Porcine) (Heparin Sq 5000 Unit/0.5ml) 5,000 unit STK-MED ONCE .ROUTE 08/29/17 10:32 08/29/17 10:33 DC 08/29/17 10:46 5,000 UNIT Hydromorphone HCl (Dilaudid Inj) 1 mg NOW STAT IV 08/29/17 11:23 08/29/17 11:24 DC 08/29/17 11:27 1 MG ED Course 0639: Past medical records reviewed. The patient was evaluated in room B6. A complete history and physical examination was performed. 0641: Zofran Inj 4mg IV, Morphine Sulfate 4mg IV, Sodium Chloride 500 ml @ 999 mls/hr IV 0847: Morphine Sulfate 6mg IV 1013: Morphine Sulfate 6mg IV 1023: Heparin Sodium/Dextrose 1 ea N/A, 1029: Normodyne IV 10mg IV 1034: I reviewed the patient's case with Dr. Salinas - Vascular Surgery, [facility]. He will evaluate the patient for further management. 1100: Upon reevaluation, the patient is resting comfortably. I discussed laboratory and radiographic results with her. She verbalized agreement of the treatment plan. I spoke with Dr. Byrne of the [facility] ED. The patient will be transferred to [facility]. 1123: Dilaudid Inj 1mg IV Medical Decision Differential diagnosis: Etiologies such as appendicitis, diverticulitis, PUD, biliary pathology, UTI, pancreatitis, obstruction, mesenteric ischemia, aortic pathology, infections, inflammatory bowel disease, renal colic, as well as others were entertained. This patient was evaluated and appeared to be in significant discomfort. IV access was obtained and laboratory work was drawn. The patient was given multiple doses of IV morphine for pain control. She was given IV Zofran for nausea. She was hydrated with normal saline solution. Ultrasound of right upper quadrant was performed and is normal. Laboratory work is fairly unrevealing with a normal WBC. Chem profile is relatively normal. Patient's blood pressure did not improve with IV narcotics. She was given labetalol [address] scan abdomen and pelvis was performed and is concerning for a thrombosis of the SMA. I did speak with Dr. Enriquez of radiology feels that there is likely a focal dissection. IV heparin was initiated. The patient was discussed with Dr. Byrne of the emergency department at [facility] as well as Dr. Salinas of vascular surgery. The patient has been accepted to an inpatient bed. ALS transportation has been arranged. Medication Reconcilliation Current Medication List: was personally reviewed by me Blood Pressure Screening Patient's blood pressure: Elevated blood pressure Blood pressure disposition: Referred to PCP (referred to tertiary care facility ) Consults Time Called: 1030 Consulting Physician: Dr. Salinas - vascular surgery [facility] Returned Call: 10:34 I reviewed the [facility] He will evaluate the patient for further management. Additional Consults: Time Called: 1048 Consulted Physician: Dr. Caty Scott oly Returned Call: 1052 Additional Comments: I reviewed the patient's case with Dr. Byrne - Orthopedic Surgeon, [facility]. The patient will be transferred to the [facility] ED. Impression Primary Impression: Dissection of mesenteric artery Critical Care I have personally spent greater than 45 minutes of critical care time in the direct management of this patient. This includes bedside care, interpretation of diagnostic studies, and testing, discussion with consultants, patient, and family members, and other required patient management activities. This 45 minutes is in excess of all separately billable procedures. Scribe Attestation The scribe's documentation has been prepared under my direction and personally reviewed by me in its entirety. I confirm that the note above accurately reflects all work, treatment, procedures, and medical decision making performed by me. Departure Information Dispostion Transfer Acute Care Facility ([facility]) Referrals Colin Harper D.O. (PCP) Patient Instructions My [facility]
[2017-08-29 07:18] LABS: URINE APPEARANCE CLEAR (CLEAR); URINE BILIRUBIN NEG (NEG); URINE COLOR YELLOW; URINE EPITHELIAL CELL AUTO >30 /lpf (0-5); URINE NITRITE NEG (NEG); URINE SPECIFIC GRAVITY 1.005 (1.000-1.030); UROBILINOGEN NEG (NEG); ZZUR CULT IF INDIC CLEAN CATCH YES
[2017-08-29 07:20] LABS: MANUAL MICROSCOPIC REQUIRED? NO; REVIEW REQ? NO
[2017-08-29] MEDS ORDERED: TRD10 PO (07:22)
--- NOTE | 2017-08-29 07:50 | DIAGNOSTIC IMAGING REPORT ---
ABDOMINAL ULTRASOUND, RIGHT UPPER QUADRANT HISTORY: RUQ pain. COMPARISON: Abdomen and pelvis CT 01/14/2016. FINDINGS: Pancreas: The pancreas demonstrates a normal echotexture. Liver: No hepatic masses. 22 cm in length. Gallbladder: No gallbladder wall thickening. No gallstones. CBD: 5 mm. Right kidney: No hydronephrosis. IMPRESSION: 1. Normal gallbladder. No gallstones. 2. Mild hepatomegaly. Electronically signed by: Tito Enriquez M.D. 08/29/2017 7:49 AM Dictated Date/Time: 08/29/2017 7:48 AM
--- NOTE | 2017-08-29 08:13 | DIAGNOSTIC IMAGING REPORT ---
CHEST ONE VIEW PORTABLE HISTORY: Right-sided chest pain. COMPARISON: Chest 02/17/2017. FINDINGS: The lungs are clear. Cardiac silhouette is normal in size. No pleural effusions. No pneumothorax. IMPRESSION: No acute process. Electronically signed by: Tito Enriquez M.D. 08/29/2017 8:12 AM Dictated Date/Time: 08/29/2017 8:11 AM
[2017-08-29] MEDS ORDERED: MoRPHine SULFATE 10 MG/ML CARP/VIAL IV STA ×2 (08:47→10:13)
--- NOTE | 2017-08-29 10:09 | DIAGNOSTIC IMAGING REPORT ---
ABDOMEN AND PELVIS CT WITH IV CONTRAST CT DOSE: 542.22 mGy.cm HISTORY: Epigastric abdominal pain. TECHNIQUE: Multiaxial CT images of the abdomen and pelvis were performed following the use of intravenous contrast. A dose lowering technique was utilized adhering to the principles of ALARA. COMPARISON STUDY: Abdomen and pelvis CT 01/14/2016. FINDINGS: The lung bases are clear. No pneumoperitoneum. No pneumatosis. No fractures within the visualized osseous structures. The liver, gallbladder, pancreas, spleen, and adrenal glands are unremarkable. There is a subcentimeter hypodense lesions seen within each kidney with the largest on the right measuring 7 mm. These are too small to characterize. No hydronephrosis. No retroperitoneal lymphadenopathy. 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 There is inflammatory change surrounding the thrombosed superior mesenteric artery. Therefore, this likely represents an acute thrombosis. The celiac artery and aorta are patent. The renal arteries are patent. No bowel wall thickening or obstruction at this time. Prior appendectomy. An intrauterine device is in good position. Normal bladder. IMPRESSION: 1. 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 There is distention of the superior mesenteric artery with surrounding inflammatory change suggestive of an acute thrombosis. This most likely represents an acute dissection. However, an underlying vasculitis could also have a similar appearance. 2. No evidence for bowel wall thickening at this time to suggest ischemic change. 3. Findings were discussed with Dr. Paty Roland at 10:10 AM on 08/29/2017. Electronically signed by: Tito Enriquez M.D. 08/29/2017 10:08 AM Dictated Date/Time: 08/29/2017 9:55 AM
[2017-08-29] MEDS ORDERED: LABETALOL HCL IV 5 MG/ML 20ML IV STA (10:29)
[2017-08-29] MEDS ORDERED: HEPARIN 25000 UNIT/500 ML D5W ONE (10:32)
[2017-08-29] MEDS ORDERED: HEPARIN SOD 5000 UNIT/0.5 ML CARP ONE (10:32)
[2017-08-29 11:06] LABS: PARTIAL THROMBOPLASTIN RATIO 1.1; PROTHROMBIN TIME (PATIENT) 10.8 SECONDS (9.0-12.0)
[2017-08-29 11:10] VITALS: PULSE 90; O2SAT 95
[2017-08-29] MEDS ORDERED: HYDROmorphone INJ 1 MG/ML SYR IV STA (11:23)
[2017-08-29 11:30] VITALS: BP 156/113
--- NOTE | 2017-08-31 17:39 | Pharmacy Progress Note ---
ED Pharmacist Culture FollowUp Date of Service: Aug 31, 2017. Group B beta Strep and Lactobacillus isolated in urine culture. Called [facility] to notify of result, but RN reported patient was discharged to home yesterday (08/30). Neither organism is likely to cause UTI. Also, with >30 epithelial cells per UA , these are likely contaminants. No intervention required. Case discussed w Dr. Cartwright.
== END 2017-08-29 11:55 | disposition short-term general hospital (02) ==
LOC: C.EDB 06:10
DX: I77.79 Dissection of other specified artery (principal); I10 Essential (primary) hypertension; F42.9 Obsessive-compulsive disorder, unspecified; F17.200 Nicotine dependence, unspecified, uncomplicated; Z87.442 Personal history of urinary calculi

== ENCOUNTER → 2017-09-22 | Outpatient (CLI) | payer BC ==
[~2017-09-22] MED LIST changes: +TRD10 PO
== END | disposition home or self-care (01) ==
LOC: C.NEUR 15:34
PROVIDERS: ATTEND Physician Assistant
DX: R06.83 Snoring (principal); I10 Essential (primary) hypertension; Z87.891 Personal history of nicotine dependence; F42.9 Obsessive-compulsive disorder, unspecified; R63.1 Polydipsia; R63.5 Abnormal weight gain; Z79.899 Other long term (current) drug therapy

== ENCOUNTER 2017-11-19 12:43 | Observation (INO) | payer BC ==
[~2017-11-19] VITALS: Ht 157.5 cm; Wt 82.2 kg
--- NOTE | 2017-11-19 13:20 | EMERGENCY ROOM VISIT NOTE ---
History First contact with patient: 13:16 Chief Complaint: CARDIAC ASSESSMENT Stated Complaint: CHEST TIGHTNESS, FAINT Nursing Triage Summary: Chest tightness for two hours and feeling faint, "I feel really weird", Checked in at work at [employer], was told she had an abnormal EKG. Recent blood clot "in a main artery" she can't remember which artery, sent to [place] for stent placement. D/c'd end of Aug, been on ASA and plavix since then without problems until today. History of Present Illness The patient is a 32 year old female who presents to the Emergency Room with complaints of chest tightness and feeling faint that started abruptly at about 11 AM today. She also reports tingling sensation in her arms and legs. Patient works at a [employer], she spoke with one of the doctors there and had an EKG done, which was "abnormal" and she was told to go to the ED. 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 She states this pain does not feel anything like when she had the SMA occlusion, and she denies any abdominal pain. She describes this chest pain as tightness, in the center of the chest, does not radiate, constant, nothing makes it better or worse, 6/10. She was given 4 baby aspirin at the urgent care before coming to the ED, she states her pain has not improved at all with this. She is a long time smoker, states she now vapes, and has been trying to cut back. She denies any headaches, vision changes, neck pain or stiffness, back pain, shortness of breath, syncope, extremity pain or swelling, nausea or vomiting, diaphoresis, abdominal pain, diarrhea or constipation, urinary symptoms, abnormal vaginal bleeding, or rash. She states she does not get regular menstrual periods since she has the Mirena. The patient does note that she has had several medication changes over the past few months, but she is unsure what all she is on. Review of Systems A complete 10 point review of systems was reviewed with the patient with pertinent positives and negatives as per history of present illness. All else were negative. Past Medical/Surgical History Medical Problems: (1) Kidney stone (2) QT prolongation Family History Patient reports no known family medical history. Social History Smoking Status: Current Every Day Smoker Alcohol Use: occasionally Drug Use: none Marital Status: Housing Status: lives with significant other Occupation Status: employed Current/Historical Medications Scheduled Aspirin (Aspirin Ec), 81 MG PO DAILY Atenolol (Tenormin), 25 MG PO QPM Atorvastatin (Lipitor), 40 MG PO DAILY Chlorthalidone (Hygroton), 25 MG PO DAILY Clopidogrel (Plavix), 75 MG PO DAILY Fluoxetine (Prozac), 20 MG PO PM Fluoxetine Hcl (Prozac), 40 MG PO QAM Losartan Potassium (Cozaar), 100 MG PO DAILY Scheduled PRN Alprazolam (Xanax), 0.25 MG PO DAILY PRN for Anxiety Allergies NKA Physical Exam Vital Signs Date Time Temp Pulse Resp B/P (MAP) Pulse Ox O2 Delivery O2 Flow Rate FiO2 11/19/17 15:03 89 20 127/93 97 Room Air 11/19/17 13:57 93 11/19/17 13:46 Room Air 11/19/17 12:47 36.5 100 18 126/99 92 Room Air Physical Exam CONSTITUTIONAL: Pleasant and cooperative. No acute distress. Well hydrated, well appearing and well nourished. HEENT: Normocephalic, atraumatic. Pupils equal, round and reactive to light, EOMI. TMs normal. Pharynx normal. Moist mucous membranes. NECK: Supple, full active range of motion without discomfort. RESPIRATORY: Clear to auscultation bilaterally with no wheezing, crackles, rhonchi or stridor. Equal expansion bilaterally. CARDIOVASCULAR: Regular rate and rhythm with no murmurs, rubs or gallops. Normal peripheral perfusion. No edema. GASTROINTESTINAL: Soft, nontender to deep palpation, nondistended. No palpable masses or HSM. Bowel sounds present in all quadrants. MUSCULOSKELETAL: Full range of motion of all joints without discomfort. INTEGUMENTARY: No rash or other significant dermatologic conditions noted. NEUROLOGIC: Alert and oriented X 4 with normal affect. Cranial nerves II-XII grossly intact. No focal neurologic deficits noted. 5/5 strength and normal sensation in all four extremities. Normal speech. Normal gait observed. Medical Decision & Procedures ER Provider Diagnostic Interpretation: (CHEST FOR PE) ANGIO WITH CLINICAL HISTORY: 32 years-old Female presenting with chest pain, clinical concern for pulmonary embolus. TECHNIQUE: Multidetector CT angiography of the chest was performed after administration of intravenous contrast. 3-D volumetric and/or maximum intensity projection (MIP) images were subsequently reconstructed for review. IV contrast: 94 mL of Optiray 320. A dose lowering technique was used consistent with the principles of ALARA (as low as reasonably achievable). COMPARISON: Chest x-ray from 08/29/2017. CT DOSE (mGy.cm): The estimated cumulative dose is 391.88 mGy.cm. FINDINGS: Newspaper Photojournalist topogram: Unremarkable. Pulmonary vasculature: The study is adequate for assessment of the pulmonary vascular tree. Questionable filling defect in a subsegmental pulmonary artery to the right apex (series 4 image 145), however, adjacent streak artifact from the densely opacified superior vena cava and mild respiratory motion make this finding indeterminate. Furthermore, no other filling defect within the pulmonary arteries to suggest embolus. Main pulmonary artery is not enlarged. No flattening of the interventricular septum. No intracardiac filling defect. No reflux of contrast into the hepatic veins. Remaining chest: On soft tissue windows, normal thyroid and thoracic inlet. No axillary, supraclavicular, hilar, or mediastinal lymphadenopathy. Normal aorta. Normal heart size. No pericardial or pleural effusion. Upper abdomen normal. On lung windows, minimal dependent changes likely atelectasis. Mosaic attenuation may relate to small airways disease or the phase of respiration. No other focal nodule or infiltrate. Airways patent. On bone windows, normal osseous structures. IMPRESSION: 1. Questionable filling defect in a subsegmental pulmonary artery to the right apex. Adjacent streak artifact from the SVC and mild respiratory motion makes this finding indeterminate, especially given the absence of additional filling defects to suggest pulmonary emboli. If there is continuing clinical concern, lower extremity venous Doppler ultrasound could be obtained for further evaluation to exclude DVT. 2. Mild atelectasis and possible small airways disease. Laboratory Results 11/19/17 13:40 Red Blood Count 4.79, Mean Corpuscular Volume 87.9, Mean Corpuscular Hemoglobin 30.1, Mean Corpuscular Hemoglobin Concent 34.2, Mean Platelet Volume 10.0, Neutrophils (%) (Auto) 63.0, Lymphocytes (%) (Auto) 27.2, Monocytes (%) (Auto) 7.8, Eosinophils (%) (Auto) 1.2, Basophils (%) (Auto) 0.6, Neutrophils # (Auto) 5.72, Lymphocytes # (Auto) 2.47, Monocytes # (Auto) 0.71, Eosinophils # (Auto) 0.11, Basophils # (Auto) 0.05 11/19/17 13:40 Test 11/19/17 13:40 11/19/17 13:48 11/19/17 13:50 11/19/17 14:15 White Blood Count 9.08 K/uL (4.8-10.8) Red Blood Count 4.79 M/uL (4.2-5.4) Hemoglobin 14.4 g/dL (12.0-16.0) Hematocrit 42.1 % (37-47) Mean Corpuscular Volume 87.9 fL (80-100) Mean Corpuscular Hemoglobin 30.1 pg (25-34) Mean Corpuscular Hemoglobin Concent 34.2 g/dl (32-36) Platelet Count 290 K/uL (130-400) Mean Platelet Volume 10.0 fL (7.4-10.4) Neutrophils (%) (Auto) 63.0 % Lymphocytes (%) (Auto) 27.2 % Monocytes (%) (Auto) 7.8 % Eosinophils (%) (Auto) 1.2 % Basophils (%) (Auto) 0.6 % Neutrophils # (Auto) 5.72 K/uL (1.4-6.5) Lymphocytes # (Auto) 2.47 K/uL (1.2-3.4) Monocytes # (Auto) 0.71 K/uL (0.11-0.59) Eosinophils # (Auto) 0.11 K/uL (0-0.5) Basophils # (Auto) 0.05 K/uL (0-0.2) RDW Standard Deviation 41.9 fL (36.4-46.3) RDW Coefficient of Variation 13.0 % (11.5-14.5) Immature Granulocyte % (Auto) 0.2 % Immature Granulocyte # (Auto) 0.02 K/uL (0.00-0.02) Prothrombin Time 11.0 SECONDS (9.0-12.0) Prothromb Time International Ratio 1.0 (0.9-1.1) Activated Partial Thromboplast Time 27.5 SECONDS (21.0-31.0) Partial Thromboplastin Ratio 1.1 D-Dimer < 190 ug/L FEU (0-500) Est Creatinine Clear Calc Drug Dose 85.8 ml/min Estimated GFR () 92.5 Estimated GFR (Non- 79.8 BUN/Creatinine Ratio 19.4 (10-20) Calcium Level 9.3 mg/dl (8.5-10.1) Magnesium Level 2.2 mg/dl (1.8-2.4) Total Bilirubin 0.6 mg/dl (0.2-1) Direct Bilirubin 0.1 mg/dl (0-0.2) Aspartate Amino Transf (AST/SGOT) 20 U/L (15-37) Alanine Aminotransferase (ALT/SGPT) 43 U/L (12-78) Alkaline Phosphatase 87 U/L (45-117) Troponin I < 0.015 ng/ml (0-0.045) Pro-B-Type Natriuretic Peptide 15 pg/ml (0-450) Total Protein 8.1 gm/dl (6.4-8.2) Albumin 4.5 gm/dl (3.4-5.0) Lipase 104 U/L (73-393) Thyroid Stimulating Hormone (TSH) 2.910 uIu/ml (0.300-4.500) Bedside Hemoglobin 15.0 g/dl (12.0-16.0) Bedside Hematocrit 44 % (37-47) Bedside Sodium 139 mEq/L (135-144) Bedside Potassium 2.8 mEq/L (3.3-5.0) Bedside Chloride 95 mEq/L (101-112) Bedside Total CO2 28 mEq/l (24-31) Anion Gap 20.0 mmol/L (16-25) Bedside Blood Urea Nitrogen 19 mg/dl (7-18) Bedside Creatinine 0.9 mg/dl (0.6-1.3) Bedside Glucose (other) 87 mg/dl (70-99) Bedside Ionized Calcium (Liza) 1.07 mmol/l (1.12-1.32) Urine Color YELLOW Urine Appearance CLEAR (CLEAR) Urine pH 6.0 (4.5-7.5) Urine Specific Loco 1.031 (1.000-1.030) Urine Protein NEG (NEG) Urine Glucose (UA) NEG (NEG) Urine Ketones TRACE (NEG) Urine Occult Blood 2+ (NEG) Urine Nitrite NEG (NEG) Urine Bilirubin NEG (NEG) Urine Urobilinogen NEG (NEG) Urine Leukocyte Esterase SMALL (NEG) Urine WBC (Auto) 1-5 /hpf (0-5) Urine RBC (Auto) >30 /hpf (0-4) Urine Hyaline Casts (Auto) 1-5 /lpf (0-5) Urine Epithelial Cells (Auto) >30 /lpf (0-5) Urine Bacteria (Auto) 1+ (NEG) Urine Test NEG (NEG) Lactic Acid Level 1.5 mmol/L (0.4-2.0) Test 11/19/17 16:26 Medications Administered Medications (Trade) Dose Ordered Sig/Alfa Route Start Time Stop Time Status Last Admin Dose Admin Fentanyl Citrate (Fentanyl Inj) 50 mcg NOW STAT IV 11/19/17 14:10 11/19/17 14:12 DC 11/19/17 14:51 50 MCG Potassium Chloride (Klor-Con M10) 60 meq NOW STAT PO 11/19/17 14:17 11/19/17 14:20 DC 11/19/17 14:52 60 MEQ Potassium Chloride 10 meq/ Prmx 100 ml @ 100 mls/hr Q1H IV 11/19/17 15:00 11/19/17 17:09 DC 11/19/17 15:53 100 MLS/HR Fentanyl Citrate (Fentanyl Inj) 50 mcg NOW STAT IV 11/19/17 15:41 11/19/17 15:42 DC 11/19/17 15:52 50 MCG ECG Indication: chest pain Rate (beats per minute): 82 Rhythm: normal sinus Findings: nonspecific-ST abn (Inferior), prolonged QT Change: QT prolongation is new when compared to EKG from 02/17/2017 Medical Decision CC: Patient presenting with complaint of chest pain, dizziness Interpretation of Labs: No leukocytosis, no anemia, significant hypokalemia, hypochloremia, hypocalcemia, normal renal function, normal liver enzymes. Coagulation factors within normal limits. Lactic acid is WNL. Troponin and BNP are negative. UA appears consistent with contaminant, culture is pending. Urine is negative. Differential Diagnosis: Includes, but not limited to ACS, PE, aortic dissection , mesenteric artery ischemia, pericarditis, electrolyte abnormality, medication related side effect, pulmonary edema, pleural effusion, pneumothorax, among others. Medication Reconciliation: I attest that I have personally reviewed the patient' s current medication list. Triage vital signs review: I reviewed the patient's vital signs and interpret them as follows: T: Afebrile; BP: Hypertensive; HR: Tachycardic; RR: Within normal limits; Pulse Ox: Low side of normal on room air. Blood pressure screening: The patient was found to have an elevated blood pressure and was referred to the inpatient hospitalist team for further management and treatment. Summary: Patient was evaluated at bedside, history and physical exam performed. Patient is alert and oriented, in no acute distress, resting calmly in the stretcher. Repeat check of her pulse ox noted to be 99% on room air. There is no abdominal tenderness on exam. Chest pain is not reproducible. Neurologic exam is normal, normal strength and sensation in all 4 extremities. EKG reviewed at the bedside, notable for QT prolongation, which appears to be new when compared to previous EKG from 6 months ago. Orders were placed at bedside for labs, UA and urine , IV fentanyl for pain, CT of the chest to evaluate for PE. Patient discussed with Dr. Perez, who agrees with my assessment and plan. Reviewed patient's medications with pharmacy, obtaining a full list of patient' s medications. Of note, patient has been started on chlorthalidone recently. Labs reviewed, concerning for hypokalemia, hypocalcemia, which are common side effects of chlorthalidone. IV and PO replacement of potassium ordered. Magnesium level is noted to be normal. Labs otherwise demonstrate initial troponin is negative and negative BNP. CT imaging reviewed, with questionable filling defect, though radiology feels this may be artifact rather than a PE. Normal aorta is noted. A d-dimer was assessed, which is negative. Bilateral ultrasound duplex of the lower extremities also ordered per request of Dr. Lanza. I spoke with Dr. Lanza, hospitalist, who agrees to admit the patient for further workup. Patient reassessed multiple times throughout ED stay, she reports her pain is improved with fentanyl. She remains otherwise stable. I discussed all results with the patient and plans for admission, she verbalized understanding and is agreeable to this. Patient was stable at time of admission. Medication Reconcilliation Current Medication List: was personally reviewed by me Impression Primary Impression: Chest pain Additional Impressions: Hypokalemia QT prolongation Departure Information Dispostion Admitted as an inpatient Condition FAIR Referrals Serena Sullivan PA-C (PCP) Patient Instructions [facility] Problem Qualifiers Primary Impression: Chest pain Chest pain type: unspecified Qualified Codes: R07.9 - Chest pain, unspecified
[2017-11-19] MEDS ORDERED: OPTIRAY 320 IV PRN (13:45)
[2017-11-19] MEDS ORDERED: CLOP1TAB15 PO (13:51)
[2017-11-19] MEDS ORDERED: ATEN-173 PO (13:51)
[2017-11-19] MEDS ORDERED: ASPI81TA28 PO (13:51)
[2017-11-19] MEDS ORDERED: LOSA100T65 PO (13:51)
[2017-11-19] MEDS ORDERED: HYG/25 PO (13:51)
[2017-11-19] MEDS ORDERED: ATOR-24 PO (13:51)
[2017-11-19 13:55] LABS: BASO % 0.6 %; BASO ABS # 0.05 K/uL (0-0.2); EOS % 1.2 %; EOS ABS # 0.11 K/uL (0-0.5); HEMATOCRIT 42.1 % (37-47); HEMOGLOBIN 14.4 g/dL (12.0-16.0); IG# 0.02 K/uL (0.00-0.02); LYMPH % 27.2 %; LYMPH ABS # 2.47 K/uL (1.2-3.4); MEAN CELL VOLUME 87.9 fL (80-100); MEAN CORPUSCULAR HEMOGLOBIN 30.1 pg (25-34); MEAN CORPUSCULAR HGB CONC 34.2 g/dl (32-36); MONO % 7.8 %; MONO ABS # 0.71 K/uL (0.11-0.59); NEUT ABS # 5.72 K/uL (1.4-6.5); PLATELET COUNT 290 K/uL (130-400); RED CELL DISTRIBUTION WIDTH SD 41.9 fL (36.4-46.3); WHITE BLOOD COUNT 9.08 K/uL (4.8-10.8)
[2017-11-19 14:02] LABS: PTT PATIENT 27.5 SECONDS (21.0-31.0)
[2017-11-19 14:06] LABS: ISTAT CREATININE 0.9 mg/dl (0.6-1.3); ISTAT IONIZED CALCIUM 1.07 mmol/l (1.12-1.32); ISTAT POTASSIUM 2.8 mEq/L (3.3-5.0)
[2017-11-19 14:10] LABS: ALBUMIN 4.5 gm/dl (3.4-5.0); ALT/SGPT 43 U/L (12-78); AST/SGOT 20 U/L (15-37); BLOOD UREA NITROGEN 18 mg/dl (7-18); CALCIUM 9.3 mg/dl (8.5-10.1); CARBON DIOXIDE 30 mmol/L (21-32); CREATININE 0.95 mg/dl (0.60-1.20); GLUCOSE 86 mg/dl (70-99); LIPASE 104 U/L (73-393); POTASSIUM 2.8 mmol/L (3.5-5.1); SODIUM 134 mmol/L (136-145)
[2017-11-19] MEDS ORDERED: FENTANYL CITRATE INJ 50 MCG/1 ML 2 ML VIAL IV STA ×2 (14:10→15:41)
[2017-11-19 14:15] LABS: ALKALINE PHOSPHATASE 87 U/L (45-117); TOTAL PROTEIN 8.1 gm/dl (6.4-8.2)
[2017-11-19] MEDS ORDERED: POTASSIUM CHLORIDE 10 MEQ TABCR PO STA ×2 (14:17→16:57)
[2017-11-19] MEDS ORDERED: MAGNESIUM SULFATE 1GM / D5W 1 GM BAG IV STA (14:17)
[2017-11-19] MEDS ORDERED: POTASSIUM CHLORIDE 10 MEQ / 100ML WTR IV STA (14:17)
--- NOTE | 2017-11-19 14:47 | DIAGNOSTIC IMAGING REPORT ---
(CHEST FOR PE) ANGIO WITH CLINICAL HISTORY: 32 years-old Female presenting with chest pain, clinical concern for pulmonary embolus. TECHNIQUE: Multidetector CT angiography of the chest was performed after administration of intravenous contrast. 3-D volumetric and/or maximum intensity projection (MIP) images were subsequently reconstructed for review. IV contrast: 94 mL of Optiray 320. A dose lowering technique was used consistent with the principles of ALARA (as low as reasonably achievable). COMPARISON: Chest x-ray from 08/29/2017. CT DOSE (mGy.cm): The estimated cumulative dose is 391.88 mGy.cm. FINDINGS: Sheet Metal Duct Installer topogram: Unremarkable. Pulmonary vasculature: The study is adequate for assessment of the pulmonary vascular tree. Questionable filling defect in a subsegmental pulmonary artery to the right apex (series 4 image 145), however, adjacent streak artifact from the densely opacified superior vena cava and mild respiratory motion make this finding indeterminate. Furthermore, no other filling defect within the pulmonary arteries to suggest embolus. Main pulmonary artery is not enlarged. No flattening of the interventricular septum. No intracardiac filling defect. No reflux of contrast into the hepatic veins. Remaining chest: On soft tissue windows, normal thyroid and thoracic inlet. No axillary, supraclavicular, hilar, or mediastinal lymphadenopathy. Normal aorta. Normal heart size. No pericardial or pleural effusion. Upper abdomen normal. On lung windows, minimal dependent changes likely atelectasis. Mosaic attenuation may relate to small airways disease or the phase of respiration. No other focal nodule or infiltrate. Airways patent. On bone windows, normal osseous structures. IMPRESSION: 1. Questionable filling defect in a subsegmental pulmonary artery to the right apex. Adjacent streak artifact from the SVC and mild respiratory motion makes this finding indeterminate, especially given the absence of additional filling defects to suggest pulmonary emboli. If there is continuing clinical concern, lower extremity venous Doppler ultrasound could be obtained for further evaluation to exclude DVT. 2. Mild atelectasis and possible small airways disease. Electronically signed by: Trey Kimball M.D. 11/19/2017 2:46 PM Dictated Date/Time: 11/19/2017 2:39 PM
[2017-11-19] MEDS: POTASSIUM CHLR 10MEQ / WTR IV SCH ×2 (15:00→15:53)
--- NOTE | 2017-11-19 15:22 | DIAGNOSTIC IMAGING REPORT ---
CHEST 2 VIEWS ROUTINE HISTORY: 32 years-old Female chest pain acute atypical chest pain portable chest radiograph 08/29/2017 COMPARISON: , CTA of the chest 11/19/2017 TECHNIQUE: PA and lateral views of the chest FINDINGS: Cardiomediastinal and hilar silhouettes are within normal limits. There is no pneumothorax, pleural effusion, focal airspace consolidation or overt pulmonary edema. Bones of the chest appear grossly intact. Retained contrast is noted within the renal collecting systems. Vascular stent graft is seen within the upper abdomen. IMPRESSION: No acute process. The above report was generated using voice recognition software. It may contain grammatical, syntax or spelling errors. Electronically signed by: Barron Marrero M.D. 11/19/2017 3:20 PM Dictated Date/Time: 11/19/2017 3:19 PM
[2017-11-19] MEDS ORDERED: POLYETHYLENE (MIRALAX) 17 GM PACK PO PRN (16:15)
[2017-11-19] MEDS ORDERED: ALUMINUM/MAGNESIUM/SIMETH (MAALOX MAX) 30 ML UDC PO PRN (16:15)
[2017-11-19] MEDS ORDERED: ALPRAZOLAM 0.25 MG TAB PO PRN (16:15)
[2017-11-19] MEDS ORDERED: ONDANSETRON INJ 2 MG/ML 2 ML VIAL IV PRN (16:15)
[2017-11-19] MEDS ORDERED: MAGNESIUM HYDROXIDE SUSP 30 ML UDC PO PRN (16:15)
--- NOTE | 2017-11-19 16:44 | History and Physical ---
History & Physical Date & Time of Service: Nov 19, 2017 at 16:28 Chief Complaint: Chest Tightness, Faint Primary Care Physician: Serena Sullivan PA-C History of Present Illness Source: patient 32 year old female with past medical history of hypertension, sleep apnea and recent SM a near occlusion/likely dissection in August 2017. Patient was transferred to [facility] and had a stent in her SMA. She was started on aspirin and Plavix. No hematologic or autoimmune workup was done. Today she was in her regular state of health when she developed sudden onset substernal chest pain. Localized in the substernal area. Pain is moderate to severe in nature. Also had some tingling in upper and lower extremities. 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 Had an EKG done there that was abnormal due to QTC prolongation. She received 4 aspirin and was sent to the ED. On arrival to the ED she was noticed to have low potassium level of 2.8, CTA was done and showed questionable filling defect on the right apical pulmonary artery, most likely it was an artifact as per radiologist but giving her significant history for SMA dissection/thrombus she will be admitted for further workup. Past Medical/Surgical History Medical Problems: (1) Kidney stone Status: Resolved Family History Patient reports no known family medical history. Social History Smoking Status: Current Every Day Smoker Drug Use: none Marital Status: Occupational Status: employed Allergies Coded Allergies: No Known Allergies (Unverified , 08/29/17) Home Medications Scheduled Aspirin (Aspirin Ec), 81 MG PO DAILY Atenolol (Tenormin), 25 MG PO QPM Atorvastatin (Lipitor), 40 MG PO DAILY Chlorthalidone (Hygroton), 25 MG PO DAILY Clopidogrel (Plavix), 75 MG PO DAILY Fluoxetine (Prozac), 20 MG PO PM Fluoxetine Hcl (Prozac), 40 MG PO QAM Losartan Potassium (Cozaar), 100 MG PO DAILY Scheduled PRN Alprazolam (Xanax), 0.25 MG PO DAILY PRN for Anxiety Review of Systems Constitutional: No fever, No chills, No sweats, No weight loss, No weakness, No fatigue, No problem reported Eyes: No worsening of vision, No eye pain, No redness, No discharge, No diplopia, No problem reported ENT: No hearing loss, No unusual epistaxis, No nasal symptoms, No sore throat, No tinnitus, No dental problems, No trouble swallowing, No problem reported Respiratory: No cough, No sputum, No wheezing, No shortness of breath, No dyspnea on exertion, No dyspnea at rest, No hemoptysis, No problem reported Cardiovascular: + chest pain, No orthopnea, No PND, No edema, No claudication, No palpitations, No problem reported Abdomen: No pain, No nausea, No vomiting, No diarrhea, No constipation, No GI bleeding, No problem reported Musculoskeletal: No joint pain, No muscle pain, No swelling, No calf pain, No problem reported Genitourinary - Female: No dysuria, No urinary frequency, No urinary urgency, No urinary incontinence, No urinary retention, No hematuria, No dysmenorrhea, No menorrhagia, No metrorrhagia, No rash, No vaginal bleeding, No vaginal discharge, No vaginal itching, No vulvodynia, No , No problem reported Neurologic: No memory loss, No paralysis, No weakness, No numbness/tingling, No vertigo, No balance problems, No problem reported Psychiatric: No depression symptoms, No anhedonism, No anxiety, No insomnia, No substance abuse, No problem reported Endocrine: No fatigue, No excessive thirst, No excessive urination, No problem reported Hematologic / Lymphatic: No abnormal bleeding/bruising, No clotting problems, No swollen lymph nodes, No night sweats, No problem reported Integumentary: No rash, No itch, No new/changing skin lesions, No color change , No bleeding, No problem reported Allergic / Immunologic: No environmental allergies, No seasonal allergies, No pet sensitivities, No food allergies, No hives, No frequent infections, No poor healing, No prolonged convalescence, No problem reported Physical Exam Vital Signs Date Time Temp Pulse Resp B/P (MAP) Pulse Ox O2 Delivery O2 Flow Rate FiO2 11/19/17 15:03 89 20 127/93 97 Room Air 11/19/17 13:57 93 11/19/17 13:46 Room Air 11/19/17 12:47 36.5 100 18 126/99 92 Room Air General Appearance: WD/WN, no apparent distress Head: normocephalic, atraumatic Eyes: normal inspection, EOMI ENT: normal ENT inspection, hearing grossly normal Neck: supple Respiratory/Chest: chest non-tender, lungs clear, normal breath sounds, no respiratory distress, no accessory muscle use Cardiovascular: regular rate, rhythm, no edema, no gallop, no JVD, no murmur Abdomen/GI: normal bowel sounds, non tender, soft, no organomegaly, no pulsatile mass Back: normal inspection Extremities/Musculoskelatal: normal inspection, no calf tenderness, normal capillary refill, no pedal edema, normal range of motion 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, no motor/sensory deficits, alert, normal mood/affect, normal reflexes, oriented x 3 Skin: normal color, warm/dry, no rash Diagnostics Laboratory Results Results Past 24 Hours Test 11/19/17 13:40 11/19/17 13:48 11/19/17 13:50 11/19/17 14:15 Range/Units White Blood Count 9.08 4.8-10.8 K/uL Red Blood Count 4.79 4.2-5.4 M/uL Hemoglobin 14.4 12.0-16.0 g/dL Hematocrit 42.1 37-47 % Mean Corpuscular Volume 87.9 80-100 fL Mean Corpuscular Hemoglobin 30.1 25-34 pg Mean Corpuscular Hemoglobin Concent 34.2 32-36 g/dl Platelet Count 290 130-400 K/uL Mean Platelet Volume 10.0 7.4-10.4 fL Neutrophils (%) (Auto) 63.0 % Lymphocytes (%) (Auto) 27.2 % Monocytes (%) (Auto) 7.8 % Eosinophils (%) (Auto) 1.2 % Basophils (%) (Auto) 0.6 % Neutrophils # (Auto) 5.72 1.4-6.5 K/uL Lymphocytes # (Auto) 2.47 1.2-3.4 K/uL Monocytes # (Auto) 0.71 0.11-0.59 K/uL Eosinophils # (Auto) 0.11 0-0.5 K/uL Basophils # (Auto) 0.05 0-0.2 K/uL RDW Standard Deviation 41.9 36.4-46.3 fL RDW Coefficient of Variation 13.0 11.5-14.5 % Immature Granulocyte % (Auto) 0.2 % Immature Granulocyte # (Auto) 0.02 0.00-0.02 K/uL Prothrombin Time 11.0 9.0-12.0 SECONDS Prothromb Time International Ratio 1.0 0.9-1.1 Activated Partial Thromboplast Time 27.5 21.0-31.0 SECONDS Partial Thromboplastin Ratio 1.1 D-Dimer < 190 0-500 ug/L FEU Sodium Level 134 136-145 mmol/L Potassium Level 2.8 3.5-5.1 mmol/L Chloride Level 97 98-107 mmol/L Carbon Dioxide Level 30 21-32 mmol/L Anion Gap 7.0 20.0 16-25 mmol/L Blood Urea Nitrogen 18 7-18 mg/dl Creatinine 0.95 0.60-1.20 mg/dl Est Creatinine Clear Calc Drug Dose 85.8 ml/min Estimated GFR () 92.5 Estimated GFR (Non- 79.8 BUN/Creatinine Ratio 19.4 10-20 Random Glucose 86 70-99 mg/dl Calcium Level 9.3 8.5-10.1 mg/dl Magnesium Level 2.2 1.8-2.4 mg/dl Total Bilirubin 0.6 0.2-1 mg/dl Direct Bilirubin 0.1 0-0.2 mg/dl Aspartate Amino Transf (AST/SGOT) 20 15-37 U/L Alanine Aminotransferase (ALT/SGPT) 43 12-78 U/L Alkaline Phosphatase 87 45-117 U/L Troponin I < 0.015 0-0.045 ng/ml Pro-B-Type Natriuretic Peptide 15 0-450 pg/ml Total Protein 8.1 6.4-8.2 gm/dl Albumin 4.5 3.4-5.0 gm/dl Lipase 104 73-393 U/L Bedside Hemoglobin 15.0 12.0-16.0 g/dl Bedside Hematocrit 44 37-47 % Bedside Sodium 139 135-144 mEq/L Bedside Potassium 2.8 3.3-5.0 mEq/L Bedside Chloride 95 101-112 mEq/L Bedside Total CO2 28 24-31 mEq/l Bedside Blood Urea Nitrogen 19 7-18 mg/dl Bedside Creatinine 0.9 0.6-1.3 mg/dl Bedside Glucose (other) 87 70-99 mg/dl Bedside Ionized Calcium (Liza) 1.07 1.12-1.32 mmol/l Urine Color YELLOW Urine Appearance CLEAR CLEAR Urine pH 6.0 4.5-7.5 Urine Specific [place] 1.031 1.000-1.030 Urine Protein NEG NEG Urine Glucose (UA) NEG NEG Urine Ketones TRACE NEG Urine Occult Blood 2+ NEG Urine Nitrite NEG NEG Urine Bilirubin NEG NEG Urine Urobilinogen NEG NEG Urine Leukocyte Esterase SMALL NEG Urine WBC (Auto) 1-5 0-5 /hpf Urine RBC (Auto) >30 0-4 /hpf Urine Hyaline Casts (Auto) 1-5 0-5 /lpf Urine Epithelial Cells (Auto) >30 0-5 /lpf Urine Bacteria (Auto) 1+ NEG Urine Test NEG NEG Lactic Acid Level 1.5 0.4-2.0 mmol/L Test 11/19/17 16:26 Range/Units Impression Assessment and Plan 52-year-old female with hypertension, sleep apnea, recent SMA dissection/ thrombus status post stent August 2017 presented to the ED with chest pain and QT prolongation. Assessment/plan Chest pain rule out ACS giving her previous history of SMA occlusion admit to telemetry obtain serial cardiac enz NTG SL/topical prn CP consult boiler inspector Check hemoglobin A1c/lipids to stratify patient risk factors repeat EKG prn chest pain Suspected pulmonary embolism on CT angiogram Obtain d-dimer which was negative, and discussed with radiologist CT angiogram finding, appears to be artifact, will hold off anticoagulation until further notice. If boiler inspector would like to do a stress test, then CT angiogram should be repeated prior to discharge to completely rule out pulmonary embolism. If boiler inspector is not willing to do a stress test then in this case we can do VQ scan to completely rule out pulmonary embolism prior to discharge. pain management Obtain ultrasound lower extremity, if negative with normal oxygen saturation we' ll hold off on anticoagulation for now until confirming the diagnosis Hypokalemia/hypocalcemia Replace potassium and monitor level Follow up electrolytes closely Stopped patient chlorthalidone, increased patient atenolol from 25- to 50 QTC prolongation possibly secondary to Prozac Decrease Prozac dose by half and monitor QTC, today was 560, her Prozac was decreased to 20 in the morning and 10 at night History of recent SMA thrombus/dissection status post stent currently on aspirin and Plavix Instructed to do hypercoagulable an autoimmune workup as an outpatient Newly diagnosed obstructive sleep apnea/ mild instructed to use CPAP machine VTE Prophylaxis VTE Risk Assessment Done? Y/N: Yes Risk Level: Moderate
[2017-11-19] MEDS ORDERED: IV FLUIDS COMPLETED PRN (16:45)
--- NOTE | 2017-11-19 17:02 | DIAGNOSTIC IMAGING REPORT ---
BILATERAL LOWER EXTREMITY VENOUS DOPPLER CLINICAL HISTORY: Chest tightness. COMPARISON STUDY: No previous studies for comparison. TECHNIQUE: Sonography of the deep venous system of the bilateral lower extremities was performed. Compression and augmentation were evaluated. FINDINGS: The bilateral common femoral, superficial femoral and popliteal veins were compressible. Augmentation was normal. Flow was shown within the deep calf vessels. IMPRESSION: No evidence of deep venous thrombus within the bilateral lower extremities. Electronically signed by: Ky Louie M.D. 11/19/2017 5:01 PM Dictated Date/Time: 11/19/2017 5:00 PM
[2017-11-19] MEDS ORDERED: HEPARIN 25,000 UNIT/500ML D5W 500 ML IV PRN (17:45)
[2017-11-19] MEDS ORDERED: HEPARIN IV LOW DOSE NO BOLUS STA (18:04)
[2017-11-19] MEDS ORDERED: HEPARIN 25000 UNIT/500 ML D5W ONE (18:13)
[2017-11-19] MEDS ORDERED: MoRPHine SULFATE 2 MG/ML CARP ONE (18:13)
[2017-11-19] MEDS: MoRPHine SULFATE 2 MG/ML CARP IV PRN (18:24)
[2017-11-19] MEDS ORDERED: POTASSIUM CHLORIDE 10 MEQ TABCR ONE ×2 (19:26→19:41)
[2017-11-19] MEDS: ACETAMINOPHEN 325 MG TAB PO PRN (19:32)
[2017-11-19 20:35] VITALS: BP 129/89; TEMP 36.3; O2SAT 99; Ht 157.5 cm; Wt 82.2 kg
[2017-11-19] MEDS ORDERED: FLUOXETINE HCL 10 MG CAP PO SCH (21:00)
[2017-11-19 23:09] VITALS: BP 113/73; PULSE 63; TEMP 36.6; O2SAT 94
[2017-11-20] MEDS: MoRPHine SULFATE 2 MG/ML CARP IV PRN ×2 (00:23→08:19)
[2017-11-20 00:38] LABS: PTT PATIENT 30.7 SECONDS (21.0-31.0)
[2017-11-20] MEDS ORDERED: HEPARIN IV BOLUS 4,000 UNIT in SYRINGE 0 ML IV ONE ×2 (02:15→09:30)
[2017-11-20 04:12] VITALS: BP 94/68; PULSE 65; TEMP 36.5; O2SAT 95
[2017-11-20 07:37] LABS: BASO % 0.8 %; BASO ABS # 0.06 K/uL (0-0.2); EOS % 3.7 %; EOS ABS # 0.29 K/uL (0-0.5); HEMATOCRIT 42.8 % (37-47); HEMOGLOBIN 14.4 g/dL (12.0-16.0); IG# 0.02 K/uL (0.00-0.02); LYMPH % 36.5 %; LYMPH ABS # 2.88 K/uL (1.2-3.4); MEAN CELL VOLUME 89.2 fL (80-100); MEAN CORPUSCULAR HGB CONC 33.6 g/dl (32-36); MEAN PLATELET VOLUME 10.1 fL (7.4-10.4); MONO % 7.9 %; MONO ABS # 0.62 K/uL (0.11-0.59); NEUT % 50.8 %; NEUT ABS # 4.01 K/uL (1.4-6.5); PLATELET COUNT 271 K/uL (130-400); RED CELL DISTRIBUTION WIDTH CV 13.1 % (11.5-14.5); RED CELL DISTRIBUTION WIDTH SD 42.5 fL (36.4-46.3); WHITE BLOOD COUNT 7.88 K/uL (4.8-10.8)
[2017-11-20 07:54] LABS: HEMOGLOBIN A1C 5.4 % (4.5-5.6)
[2017-11-20 08:23] VITALS: BP 101/64; PULSE 66; TEMP 36.6; O2SAT 95
[2017-11-20 08:30] LABS: ALBUMIN 4.1 gm/dl (3.4-5.0); CALCIUM 8.6 mg/dl (8.5-10.1); CREATININE 0.69 mg/dl (0.60-1.20); POTASSIUM 3.5 mmol/L (3.5-5.1)
[2017-11-20 08:39] LABS: TOTAL PROTEIN 7.6 gm/dl (6.4-8.2)
[2017-11-20] MEDS: ACETAMINOPHEN 325 MG TAB PO PRN (08:52)
[2017-11-20] MEDS ORDERED: CHLORTHALIDONE 25 MG TAB PO SCH (09:00)
[2017-11-20] MEDS ORDERED: ATORVASTATIN 40 MG TAB PO SCH (09:00)
[2017-11-20] MEDS ORDERED: ASPIRIN 81 MG ECTAB PO SCH (09:00)
[2017-11-20] MEDS ORDERED: FLUOXETINE HCL 20 MG CAP PO SCH (09:00)
[2017-11-20] MEDS ORDERED: CLOPIDOGREL BISULFATE 75 MG TAB PO SCH (09:00)
[2017-11-20] MEDS ORDERED: LOSARTAN POTASSIUM 50 MG TAB PO SCH (09:00)
[2017-11-20 09:04] LABS: PTT PATIENT 32.6 SECONDS (21.0-31.0)
--- NOTE | 2017-11-20 10:04 | Cardiology Consultation ---
Cardiology Consultation Date of Consultation: Nov 20, 2017. Requesting Physician: Dr. 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 She was transferred to [facility] where she had vascular surgery. She now presents with chest discomfort and presyncope, she was told at her work place (which is [employer]) that she had abnormal electrocardiogram (I have not seen that electrocardiogram). She was sent to the emergency room. Here she was noted to have hypokalemia (2.8) and noted to have QT prolongation. There was no evidence of ST deviation on her electrocardiogram, her cardiac enzymes have been negative and her QT prolongation has resolved this morning and was not present on prior electrocardiograms in the past. A chest CT scan done on 11/19/2017 showed a questionable filling defect in a subsegmental pulmonary artery on the right apex. No other filling defects were identified. Bilateral leg venous ultrasound showed no evidence of thrombosis. She was started on heparin, and she is scheduled for a ventilation perfusion scan. Currently she is still having mild chest discomfort, this has continued since admission. The chest discomfort is somewhat improved with laying down versus standing up. She has had no further presyncope, however she did have shortness of breath with exertion such as walking to the room which was not present before yesterday. She has noted no leg swelling. She did not have any palpitations with her lightheadedness and never has. She has never had syncope. Past Medical/Surgical History (1) Dissection of mesenteric artery Hypertension Family History Patient reports no known family medical history. Social History Smoking Status: Current Every Day Smoker History of Alcohol Use: Yes (OCCASSIONALLY) Review of Systems Constitutional: No fever, No weight loss, No weakness Respiratory: + see HPI, + dyspnea on exertion, No cough, No wheezing, No shortness of breath Cardiac: + see HPI, + chest pain, + problem reported (presyncope, no syncope), No orthopnea, No PND, No edema, No palpitations Abdomen: No pain, No nausea, No vomiting, No diarrhea, No GI bleeding Female : No problem reported Neurologic: No paralysis, No weakness, No numbness/tingling, No balance problems Heme: No abnormal bleeding/bruising, No clotting problems Endo: No fatigue Skin: No problem reported All Other Systems: Reviewed and Negative Allergies Coded Allergies: No Known Allergies (Unverified , 08/29/17) Medications Current Inpatient Medications Medications (Trade) Dose Ordered Sig/Alfa Route Start Time Stop Time Status Last Admin Dose Admin Ioversol (Optiray 320) 125 ml UD PRN IV 11/19/17 13:45 11/23/17 13:44 Acetaminophen (Tylenol Tab) 650 mg Q4H PRN PO 11/19/17 16:15 12/19/17 16:14 11/20/17 08:52 650 MG Al Hydrox/Mg Hydrox/Simethicone (Maalox Max Susp) 15 ml Q4H PRN PO 11/19/17 16:15 12/19/17 16:14 Magnesium Hydroxide (Milk Of Magnesia Susp) 30 ml Q12H PRN PO 11/19/17 16:15 12/19/17 16:14 Ondansetron HCl (Zofran Inj) 4 mg Q6H PRN IV 11/19/17 16:15 12/19/17 16:14 Polyethylene (Miralax Powder Packet) 17 gm DAILY PRN PO 11/19/17 16:15 12/19/17 16:14 Alprazolam (Xanax Tab) 0.25 mg DAILY PRN PO 11/19/17 16:15 12/19/17 16:14 11/20/17 08:52 0.25 MG Aspirin (Ecotrin Tab) 81 mg DAILY PO 11/20/17 09:00 12/20/17 08:59 Atorvastatin Calcium (Lipitor Tab) 40 mg DAILY PO 11/20/17 09:00 12/20/17 08:59 11/20/17 09:02 40 MG Clopidogrel Bisulfate (plAVix TAB) 75 mg DAILY PO 11/20/17 09:00 12/20/17 08:59 Fluoxetine HCl (Prozac Cap) 10 mg PM PO 11/19/17 21:00 12/19/17 20:59 11/19/17 21:48 10 MG Fluoxetine HCl (Prozac Cap) 20 mg QAM PO 11/20/17 09:00 12/20/17 08:59 11/20/17 09:02 20 MG Losartan Potassium (coZAAR TAB) 100 mg DAILY PO 11/20/17 09:00 12/20/17 08:59 11/20/17 09:02 100 MG Atenolol (Tenormin Tab) 50 mg QPM PO 11/19/17 21:00 12/19/17 20:59 11/19/17 21:45 50 MG Miscellaneous (Iv Fluids Completed) 1 ea PRN PRN N/A 11/19/17 16:45 11/19/18 16:44 Heparin Sodium/ Dextrose 500 ml @ 21 mls/hr [id number] PRN IV 11/19/17 17:45 12/19/17 17:44 11/19/17 18:24 15 MLS/HR Morphine Sulfate (MoRPHine SULFATE INJ) 1 mg Q4H PRN IV 11/19/17 18:00 12/03/17 17:59 11/20/17 08:19 1 MG Physical Exam Vital Signs Past 12 Hours Date Time Temp Pulse Resp B/P (MAP) Pulse Ox O2 Delivery O2 Flow Rate FiO2 11/20/17 08:23 36.6 66 16 101/64 (76) 95 Room Air 11/20/17 08:00 Room Air 11/20/17 04:12 36.5 65 16 94/68 (77) 95 Room Air 11/20/17 04:00 Room Air 11/19/17 23:59 Room Air 11/19/17 23:09 36.6 63 18 113/73 (86) 94 Room Air Constitutional: General Apperance: heathly-appearing Level of Distress: NAD Psychiatric: Mental Status: active & alert Head: normocephalic Eyes: EOM: EOMI ENMT: normal ENT inspection, hearing grossly normal Neck: supple, no masses Lungs: Respiratory effort: no dyspnea, good air movement Auscultation: breath sounds normal, no wheezing Cardiovascular: Heart Auscultation: RRR, no murmurs, no rubs, no gallops Peripheral Pulses: Bruits: none appreciated Abdomen: Bowel Sounds: normal Inspection & Palpation: soft, no tenderness, guarding & rebound, no masses Musculoskeletal: normal strength (5/5 throughout) Extremities: no edema Neurologic: Cranial Nerves: grossly intact Sensation: grossly intact Data Laboratory Results: Last 24 Hours Test 11/19/17 13:40 11/19/17 13:48 11/19/17 13:50 11/19/17 14:15 White Blood Count 9.08 K/uL Red Blood Count 4.79 M/uL Hemoglobin 14.4 g/dL Hematocrit 42.1 % Mean Corpuscular Volume 87.9 fL Mean Corpuscular Hemoglobin 30.1 pg Mean Corpuscular Hemoglobin Concent 34.2 g/dl Platelet Count 290 K/uL Mean Platelet Volume 10.0 fL Neutrophils (%) (Auto) 63.0 % Lymphocytes (%) (Auto) 27.2 % Monocytes (%) (Auto) 7.8 % Eosinophils (%) (Auto) 1.2 % Basophils (%) (Auto) 0.6 % Neutrophils # (Auto) 5.72 K/uL Lymphocytes # (Auto) 2.47 K/uL Monocytes # (Auto) 0.71 K/uL Eosinophils # (Auto) 0.11 K/uL Basophils # (Auto) 0.05 K/uL RDW Standard Deviation 41.9 fL RDW Coefficient of Variation 13.0 % Immature Granulocyte % (Auto) 0.2 % Immature Granulocyte # (Auto) 0.02 K/uL Erythrocyte Sedimentation Rate 9 mm/hr Prothrombin Time 11.0 SECONDS Prothromb Time International Ratio 1.0 Activated Partial Thromboplast Time 27.5 SECONDS Partial Thromboplastin Ratio 1.1 D-Dimer < 190 ug/L FEU Sodium Level 134 mmol/L Potassium Level 2.8 mmol/L Chloride Level 97 mmol/L Carbon Dioxide Level 30 mmol/L Anion Gap 7.0 mmol/L 20.0 mmol/L Blood Urea Nitrogen 18 mg/dl Creatinine 0.95 mg/dl Est Creatinine Clear Calc Drug Dose 85.8 ml/min Estimated GFR () 92.5 Estimated GFR (Non- 79.8 BUN/Creatinine Ratio 19.4 Random Glucose 86 mg/dl Calcium Level 9.3 mg/dl Magnesium Level 2.2 mg/dl Total Bilirubin 0.6 mg/dl Direct Bilirubin 0.1 mg/dl Aspartate Amino Transf (AST/SGOT) 20 U/L Alanine Aminotransferase (ALT/SGPT) 43 U/L Alkaline Phosphatase 87 U/L Troponin I < 0.015 ng/ml C-Reactive Protein 0.47 mg/dl Pro-B-Type Natriuretic Peptide 15 pg/ml Total Protein 8.1 gm/dl Albumin 4.5 gm/dl Lipase 104 U/L Thyroid Stimulating Hormone (TSH) 2.910 uIu/ml Bedside Hemoglobin 15.0 g/dl Bedside Hematocrit 44 % Bedside Sodium 139 mEq/L Bedside Potassium 2.8 mEq/L Bedside Chloride 95 mEq/L Bedside Total CO2 28 mEq/l Bedside Blood Urea Nitrogen 19 mg/dl Bedside Creatinine 0.9 mg/dl Bedside Glucose (other) 87 mg/dl Bedside Ionized Calcium (Liza) 1.07 mmol/l Urine Color YELLOW Urine Appearance CLEAR Urine pH 6.0 Urine Specific [place] 1.031 Urine Protein NEG Urine Glucose (UA) NEG Urine Ketones TRACE Urine Occult Blood 2+ Urine Nitrite NEG Urine Bilirubin NEG Urine Urobilinogen NEG Urine Leukocyte Esterase SMALL Urine WBC (Auto) 1-5 /hpf Urine RBC (Auto) >30 /hpf Urine Hyaline Casts (Auto) 1-5 /lpf Urine Epithelial Cells (Auto) >30 /lpf Urine Bacteria (Auto) 1+ Urine Test NEG Lactic Acid Level 1.5 mmol/L Test 11/19/17 20:49 11/20/17 00:08 11/20/17 01:45 11/20/17 07:23 Troponin I < 0.015 ng/ml < 0.015 ng/ml Activated Partial Thromboplast Time 30.7 SECONDS Partial Thromboplastin Ratio 1.2 Lactic Acid Level 1.4 mmol/L Test 11/20/17 07:24 11/20/17 08:37 White Blood Count 7.88 K/uL Red Blood Count 4.80 M/uL Hemoglobin 14.4 g/dL Hematocrit 42.8 % Mean Corpuscular Volume 89.2 fL Mean Corpuscular Hemoglobin 30.0 pg Mean Corpuscular Hemoglobin Concent 33.6 g/dl Platelet Count 271 K/uL Mean Platelet Volume 10.1 fL Neutrophils (%) (Auto) 50.8 % Lymphocytes (%) (Auto) 36.5 % Monocytes (%) (Auto) 7.9 % Eosinophils (%) (Auto) 3.7 % Basophils (%) (Auto) 0.8 % Neutrophils # (Auto) 4.01 K/uL Lymphocytes # (Auto) 2.88 K/uL Monocytes # (Auto) 0.62 K/uL Eosinophils # (Auto) 0.29 K/uL Basophils # (Auto) 0.06 K/uL RDW Standard Deviation 42.5 fL RDW Coefficient of Variation 13.1 % Immature Granulocyte % (Auto) 0.3 % Immature Granulocyte # (Auto) 0.02 K/uL Sodium Level 134 mmol/L Potassium Level 3.5 mmol/L Chloride Level 99 mmol/L Carbon Dioxide Level 30 mmol/L Anion Gap 5.0 mmol/L Blood Urea Nitrogen 13 mg/dl Creatinine 0.69 mg/dl Est Creatinine Clear Calc Drug Dose 117.4 ml/min Estimated GFR () 134.4 Estimated GFR (Non- 116.0 BUN/Creatinine Ratio 18.8 Random Glucose 91 mg/dl Estimated Average Glucose 108 mg/dl Hemoglobin A1c 5.4 % Calcium Level 8.6 mg/dl Magnesium Level 2.2 mg/dl Total Bilirubin 0.5 mg/dl Aspartate Amino Transf (AST/SGOT) 17 U/L Alanine Aminotransferase (ALT/SGPT) 36 U/L Alkaline Phosphatase 83 U/L Total Protein 7.6 gm/dl Albumin 4.1 gm/dl Globulin 3.5 gm/dl Albumin/Globulin Ratio 1.2 Triglycerides Level 165 mg/dl Cholesterol Level 128 mg/dl HDL Cholesterol 37 mg/dl LDL Cholesterol, Calculated 58 mg/dl VLDL Cholesterol, Calculated 33 mg/dl Cholesterol/HDL Ratio 3.5 Activated Partial Thromboplast Time 32.6 SECONDS Partial Thromboplastin Ratio 1.3 Imaging: Results of her CT scan and leg ultrasound are noted in the history of present illness EKG: On arrival her electrocardiogram showed sinus rhythm with a prolonged QT, no ischemic change. An electrocardiogram this morning is entirely normal. Telemetry reviewed: Echocardiogram: Ordered Assessment & Plan #1. Chest discomfort: It is very unlikely that this is ischemic in origin, and despite her mesenteric artery dissection we don't have any evidence that she has atherosclerosis and she is treated for it with statins and blood pressure control. With negative enzymes and no echocardiographic changes and chest discomfort since yesterday and will certainly non-ischemic. It is conceivable it is something like pericarditis but we've no evidence for that either. It could be due to pulmonary embolism although seems out of proportion to findings on the CT scan. A VQ scan is pending. I would not pursue further cardiac evaluation now, including stress testing, and the role for stress testing in the future is uncertain. Given her long QT (discussed below) on admission I think a stress test would be reasonable on that basis but I would not do it now. If a pulmonary origin for chest discomfort is excluded we could consider anti-inflammatory agents in case this is early pericarditis although it is really not entirely consistent with that. I would recommend an echocardiogram, which I will order. #2. Long QT: She did have a prolonged QT on her presenting electrocardiogram, it is likely related to her hypokalemia and has resolved with correction of her potassium. I think it would be prudent however to evaluate this with a stress test to see if she has normal shortening of her QT interval. I would not do that now, and she has no symptoms suggestive of arrhythmias due to long QT other than lightheadedness immediately prior to presentation but no evidence of an arrhythmia on presentation. She is never had syncope. I would probably avoid antihypertensives a lower potassium however, or use a potassium sparing diuretic such as Dyazide and watch her potassium closely. #3. Mesenteric dissection: I don't know the cause of this, as far as I know atherosclerosis was not identified although if it was that might alter our approach. Thank you for allowing me to participate in her care.
[2017-11-20 11:36] VITALS: BP 92/57; PULSE 66; TEMP 36.8; O2SAT 96
--- NOTE | 2017-11-20 13:02 | DIAGNOSTIC IMAGING REPORT ---
LUNG IMAGING VQ CLINICAL HISTORY: Atypical chest pain. Equivocal filling defect on prior CT angiography of the chest. COMPARISON STUDY: CT angiography the chest dated 11/19/2017 FINDINGS: The patient was ventilated utilizing 31.3 mCi of technetium 99m DTPA aerosol. The patient was perfused utilizing 6.2 mCi of technetium 99m MAA. There is very subtle inhomogeneous activity within the periphery of the right lung on the ventilation and perfusion studies. No significant VQ mismatches are evident. This study is of very low probability for pulmonary embolism. IMPRESSION: Very low probability for pulmonary embolism. Electronically signed by: Gómez Schultz M.D. 11/20/2017 1:00 PM Dictated Date/Time: 11/20/2017 12:57 PM
[2017-11-20] MEDS ORDERED: KETOROLAC TROMETHAMINE 30 MG/ML VIAL IV STA (13:49)
--- NOTE | 2017-11-20 14:55 | Progress Note ---
Subjective Date of Service: Nov 20, 2017. 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 (3) Hypokalemia Status: Acute (4) Right flank pain Status: Acute Objective Vital Signs Date Time Temp Pulse Resp B/P (MAP) Pulse Ox O2 Delivery O2 Flow Rate FiO2 11/20/17 12:00 Room Air 11/20/17 11:36 36.8 66 16 92/57 (69) 96 Room Air 11/20/17 08:23 36.6 66 16 101/64 (76) 95 Room Air 11/20/17 08:00 Room Air 11/20/17 04:12 36.5 65 16 94/68 (77) 95 Room Air 11/20/17 04:00 Room Air 11/19/17 23:59 Room Air 11/19/17 23:09 36.6 63 18 113/73 (86) 94 Room Air 11/19/17 20:35 36.3 18 129/89 99 Room Air 11/19/17 19:48 85 20 98/77 98 Room Air 11/19/17 18:40 83 20 128/91 97 Room Air 11/19/17 17:58 87 11/19/17 17:05 87 20 127/87 94 Room Air 11/19/17 15:03 89 20 127/93 97 Room Air Physical Exam General Appearance: WD/WN Eyes: normal inspection, sclerae normal Neck: supple, no JVD Respiratory/Chest: chest non-tender, lungs clear Cardiovascular: regular rate, rhythm, no murmur Abdomen: normal bowel sounds, non tender, soft Extremities: no pedal edema, no calf tenderness Neurologic/Psychiatric: alert, oriented x 3 Laboratory Results Last 24 Hours Test 11/19/17 20:49 11/20/17 00:08 11/20/17 01:45 11/20/17 07:23 Troponin I < 0.015 ng/ml < 0.015 ng/ml Activated Partial Thromboplast Time 30.7 SECONDS Partial Thromboplastin Ratio 1.2 Lactic Acid Level 1.4 mmol/L Test 11/20/17 07:24 11/20/17 08:37 11/20/17 11:14 White Blood Count 7.88 K/uL Red Blood Count 4.80 M/uL Hemoglobin 14.4 g/dL Hematocrit 42.8 % Mean Corpuscular Volume 89.2 fL Mean Corpuscular Hemoglobin 30.0 pg Mean Corpuscular Hemoglobin Concent 33.6 g/dl Platelet Count 271 K/uL Mean Platelet Volume 10.1 fL Neutrophils (%) (Auto) 50.8 % Lymphocytes (%) (Auto) 36.5 % Monocytes (%) (Auto) 7.9 % Eosinophils (%) (Auto) 3.7 % Basophils (%) (Auto) 0.8 % Neutrophils # (Auto) 4.01 K/uL Lymphocytes # (Auto) 2.88 K/uL Monocytes # (Auto) 0.62 K/uL Eosinophils # (Auto) 0.29 K/uL Basophils # (Auto) 0.06 K/uL RDW Standard Deviation 42.5 fL RDW Coefficient of Variation 13.1 % Immature Granulocyte % (Auto) 0.3 % Immature Granulocyte # (Auto) 0.02 K/uL Erythrocyte Sedimentation Rate 9 mm/hr Sodium Level 134 mmol/L Potassium Level 3.5 mmol/L Chloride Level 99 mmol/L Carbon Dioxide Level 30 mmol/L Anion Gap 5.0 mmol/L Blood Urea Nitrogen 13 mg/dl Creatinine 0.69 mg/dl Est Creatinine Clear Calc Drug Dose 117.4 ml/min Estimated GFR () 134.4 Estimated GFR (Non- 116.0 BUN/Creatinine Ratio 18.8 Random Glucose 91 mg/dl Estimated Average Glucose 108 mg/dl Hemoglobin A1c 5.4 % Calcium Level 8.6 mg/dl Magnesium Level 2.2 mg/dl Total Bilirubin 0.5 mg/dl Aspartate Amino Transf (AST/SGOT) 17 U/L Alanine Aminotransferase (ALT/SGPT) 36 U/L Alkaline Phosphatase 83 U/L Total Protein 7.6 gm/dl Albumin 4.1 gm/dl Globulin 3.5 gm/dl Albumin/Globulin Ratio 1.2 Triglycerides Level 165 mg/dl Cholesterol Level 128 mg/dl HDL Cholesterol 37 mg/dl LDL Cholesterol, Calculated 58 mg/dl VLDL Cholesterol, Calculated 33 mg/dl Cholesterol/HDL Ratio 3.5 Activated Partial Thromboplast Time 32.6 SECONDS Partial Thromboplastin Ratio 1.3 Troponin I < 0.015 ng/ml Assessment and Plan 32-year-old female presents with Chest pain and QT prolongation., negative D Dimer, suggestive CTA and very low prob V/Q, previous with hypertension, sleep apnea, 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 Chest pain rule negative troponins, no ecg changes, Qtc corrected, pending echo , negative ESR to eval for pericarditis or endocarditis consult medical reception specialist does not feel obliged to have inpatient workup Pulmonary embolism has been ruled out, with very low prob V/Q, will stop full AC and convert to prevention dose Hypokalemia/hypocalcemia Replaced potassium and Qtc corrected also may have been influenced by Prozac Stopped patient chlorthalidone, increased patient atenolol from 25- to 50 QTC prolongation possibly secondary to Prozac Decreased Prozac dose by half and QTC, has normalized, per cardiology will recommend follow up with EP History of recent SMA thrombus/dissection status post stent currently on aspirin and Plavix Instructed to do hypercoagulable an autoimmune workup in the future Newly diagnosed obstructive sleep apnea/ mild instructed to use CPAP machine
[2017-11-20 15:19] VITALS: BP 100/65; PULSE 63; TEMP 36.7; O2SAT 98
[2017-11-20] MEDS ORDERED: IBUP1CAP9 PO (17:01)
--- NOTE | 2017-11-20 17:03 | Discharge Instructions ---
Discharge Instructions Date of Service Nov 20, 2017. Admission Reason for Admission: Chest Pain, Qt Prolongation Discharge Discharge Diagnosis / Problem: chest pain Discharge Goals Goal(s): Diagnostic testing, Therapeutic intervention Activity Recommendations Activity Limitations: as noted below Lifting Limitations: gradually increase as tolerated . Current Hospital Diet Patient's current hospital diet: AHA Diet (Heart Healthy) Discharge Diet Recommended Diet: Regular Diet Pending Studies Studies pending at discharge: yes List of pending studies: final Echocardiogram reading urine culture Laboratory Results Hemoglobin A1c Test 11/20/17 07:24 Range/Units Estimated Average Glucose 108 mg/dl Hemoglobin A1c 5.4 4.5-5.6 % Lipid Panel Test 11/20/17 07:24 Range/Units Triglycerides Level 165 H 0-150 mg/dl Cholesterol Level 128 0-200 mg/dl HDL Cholesterol 37 mg/dl Cholesterol/HDL Ratio 3.5 LDL Cholesterol, Calculated 58 mg/dl Medical Emergencies . Who to Call and When: Medical Emergencies: If at any time you feel your situation is an emergency, please call 911 immediately. . Non-Emergent Contact Non-Emergency issues call your: Primary Care Provider Call Non-Emergent contact if: temperature is above 101, your pain is unusual for you . . "Provider Documentation" section prepared by Vin Blackwood. . Rail Setter Recommendations Rail Setter Recommendations: Please reduce your dose of prozac as listed above and discontinue your chlorthalidone please take off work until re evaluated by your primary care provider, please have them recheck your potassium and ECG to evaluate your Qtc interval please return immediately if your symptoms worsen if you do not hear from our nurse equipment mechanic on wednesday 11/22, call your pcp for a hospital follow up appointment VTE Core Measure Inpt VTE Proph given/why not?: Unfractionated heparin SQ
[2017-11-20 17:10] VITALS: BP 100/65; PULSE 63; TEMP 36.7; O2SAT 98
--- NOTE | 2017-11-20 17:20 | ECHOCARDIOGRAM REPORT ---
*NOTICE TO RECEIVING DEMOCRAT AGENCY This information is strictly Confidential and protected under [place] law. [place] law prohibits you from making any further disclosure of this information unless further disclosure is expressly permitted by the written consent of the person to whom it pertains or is authorized by law. A general authorization for the release of medical or other information is not sufficient for this purpose. Hospital accepts no responsibility if the information is made available to any other person, INCLUDING THE PATIENT. Interpretation Summary * Name: JAMES ROTHMAN Study Date: 11/20/2017 10:47 AM BP: 101/64 mmHg * Patient Location: C.2T\S\S238\S\2 HR: 66 * : 1985 (M/d/yyyy) Gender: Female Height: 62 in * Age: 32 yrs Ethnicity: CA Weight: 181 lb * Ordering Physician: Nazario Cristina * Referring Physician: Self, Referred * Performed By: Rita Rader RDCS * * Reason For Study: Chest pain, possible PE * BSA: 1.8 m2 * -- Conclusions -- * 1. Normal LV size. Normal LV wall thickness. * 2. Normal LV systolic function. LVEF 60-65%. No regional wall motion abnormalities. * 3. Normal RV size and function. * 4. No significant valvular pathology. * 5. Normal estimated PA and RA pressures. * 6. No prior studies for comparison. Procedure Details * A complete two-dimensional transthoracic echocardiogram was performed (2D, M-mode, Doppler and color flow Doppler). Left Ventricle * The left ventricle is grossly normal size. * There is normal left ventricular wall thickness. * Ejection Fraction = 60-65%. * No regional wall motion abnormalities noted. Right Ventricle * The right ventricle is grossly normal size. * The right ventricle is not well visualized. * The right ventricular systolic function is normal as assessed by tricuspid annular plane systolic excursion (TAPSE) (normal >1.5 cm). Atria * The left atrial size is normal. * Right atrial size is normal. * No ASD detected; PFO is not assessed. Mitral Valve * The mitral valve is grossly normal. * Mitral stenosis is absent. * There is trace mitral regurgitation. Tricuspid Valve * The tricuspid valve is not well visualized, but is grossly normal. * There is trace tricuspid regurgitation. Aortic Valve * The aortic valve opens well. * The aortic valve is trileaflet. * No hemodynamically significant valvular aortic stenosis. * There is no significant aortic regurgitation. Pulmonic Valve * The pulmonary valve is inadequately visualized, but the Doppler data is adequate for interpretation. * Pulmonic stenosis is absent. * There is no significant pulmonary regurgitation. Great Vessels * The aortic root and proximal ascending aorta are normal sized. Pericardium/Pleural * There is no pericardial effusion. Great Vessels * Normal inferior vena cava size and collapsability with sniff indicates a normal right atrial pressure of 3 mmHg MMode 2D Measurements and Calculations IVSd 0.82 cm LVIDd 4.7 cm LVIDs 3.0 cm LVPWd 0.53 cm IVS/LVPW 1.6 FS 37.2 % EDV(Teich) 103.2 ml ESV(Teich) 33.9 ml EF(Teich) 67.2 % EDV(cubed) 104.9 ml ESV(cubed) 25.9 ml EF(cubed) 75.3 % LV mass(C)d 98.9 grams LV mass(C)dI 54.0 grams/m\S\2 SV(Teich) 69.3 ml SI(Teich) 37.8 ml/m\S\2 SV(cubed) 78.9 ml SI(cubed) 43.1 ml/m\S\2 Ao root diam 2.9 cm Ao root area 6.5 cm\S\2 ACS 2.1 cm LA dimension 3.2 cm asc Aorta Diam 3.0 cm LA/Ao 1.1 LVOT diam 2.0 cm LVOT area 3.1 cm\S\2 LVAd ap4 24.5 cm\S\2 LVLd ap4 7.5 cm EDV(MOD-sp4) 67.3 ml EDV(sp4-el) 67.9 ml LVAs ap4 12.3 cm\S\2 LVLs ap4 6.4 cm ESV(MOD-sp4) 23.3 ml ESV(sp4-el) 20.1 ml EF(MOD-sp4) 65.4 % EF(sp4-el) 70.4 % LVAd ap2 25.2 cm\S\2 LVLd ap2 8.0 cm EDV(MOD-sp2) 68.4 ml EDV(sp2-el) 67.1 ml LVAs ap2 12.6 cm\S\2 LVLs ap2 6.5 cm ESV(MOD-sp2) 21.0 ml ESV(sp2-el) 20.7 ml EF(MOD-sp2) 69.3 % EF(sp2-el) 69.2 % LVLd %diff 6.2 % EDV(MOD-bp) 68.7 ml LVLs %diff 2.5 % ESV(MOD-bp) 22.1 ml EF(MOD-bp) 67.8 % SV(MOD-sp4) 44.0 ml SI(MOD-sp4) 24.0 ml/m\S\2 SV(MOD-sp2) 47.4 ml SI(MOD-sp2) 25.9 ml/m\S\2 SV(MOD-bp) 46.6 ml SI(MOD-bp) 25.4 ml/m\S\2 SV(sp4-el) 47.8 ml SI(sp4-el) 26.1 ml/m\S\2 SV(sp2-el) 46.4 ml SI(sp2-el) 25.3 ml/m\S\2 Doppler Measurements and Calculations MV E max patricia 89.2 cm/sec MV A max patricia 54.8 cm/sec MV E/A 1.6 MV dec time 0.20 sec Ao V2 max 128.2 cm/sec Ao max PG 6.6 mmHg Ao max PG (full) 1.5 mmHg CARLY(V,A) 2.7 cm\S\2 CARLY(V,D) 2.7 cm\S\2 LV V1 max PG 5.1 mmHg LV V1 max 113.0 cm/sec PA V2 max 85.5 cm/sec PA max PG 2.9 mmHg PA acc slope 474.9 cm/sec\S\2 PA acc time 0.13 sec TR max patricia 205.1 cm/sec PA pr(Accel) 18.8 mmHg
--- NOTE | 2017-11-20 17:42 | Discharge Summary ---
Discharge Summary Date of Service Nov 20, 2017. Discharge Summary Admission Date: Nov 19, 2017 at 16:11 Discharge Date: Nov 20, 2017 Discharge Disposition: Home Principal Diagnosis: atypical chest pain Procedures: CT angio for PE small suggestion, V/Q for PE very low probability, doppler no DVT, serial enzymes normal and ECG while having pain is normal Medication Reconciliation New Medications: Ibuprofen (Ibuprofen) 200 Mg Cap 400 MG PO Q8, #100 DOSE Continued Medications: Alprazolam (Xanax) 0.25 Mg Tab 0.25 MG PO DAILY PRN for Anxiety, TAB Aspirin (Aspirin Ec) 81 Mg Tab 81 MG PO DAILY Atenolol (Tenormin) 25 Mg Tab 25 MG PO QPM, TAB Atorvastatin (Lipitor) 40 Mg Tab 40 MG PO DAILY, TAB Clopidogrel (Plavix) 75 Mg Tab 75 MG PO DAILY, TAB Fluoxetine Hcl (Prozac) 40 Mg Cap 40 MG PO QAM, CAP Losartan Potassium (Cozaar) 100 Mg Tab 100 MG PO DAILY, TAB Discontinued Medications: Chlorthalidone (Hygroton) 25 Mg Tab 25 MG PO DAILY, TAB Fluoxetine (Prozac) 10 Mg Cap 20 MG PO PM, CAP Discharge Exam Review of Systems: Constitutional: No fever, No chills Cardiovascular: + chest pain, No orthopnea, No edema Abdomen: No pain, No diarrhea, No constipation Musculoskeletal: No joint pain, No muscle pain, No swelling Physical Exam: General Appearance: WD/WN, + mild distress Eyes: PERRL, EOMI Neck: supple, no JVD Respiratory/Chest: chest non-tender, lungs clear Cardiovascular: regular rate, rhythm, no murmur Abdomen / GI: normal bowel sounds, non tender, soft Hospital Course 32-year-old female presents with Chest pain and QT prolongation., negative D Dimer, suggestive CTA and very low prob V/Q, previous with hypertension, sleep apnea, 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 Chest pain ruled out with negative troponins, no ecg changes even after ambulating with some discomfort, Qtc corrected, pending echo at time of discharge, negative ESR to eval for pericarditis or endocarditis, but did have good improvement after toradol consult bank examiner does not feel obliged to have inpatient workup Pulmonary embolism has been ruled out, with very low prob V/Q, will stop full AC and convert to prevention dose Hypokalemia/hypocalcemia Replaced potassium and Qtc corrected also may have been influenced by Prozac Stop chlorthalidone at discharge and continue, atenolol from 25 QTC prolongation possibly secondary to Prozac Decreased Prozac dose by to 40 mg and recommend follow up with pcp and consider EP evaluation as outpt History of recent SMA thrombus/dissection status post stent currently on aspirin and Plavix Instructed to do hypercoagulable an autoimmune workup in the future I spoke to patient and at bedside the pt requests to be home with family and feels will be improved if at home, the only outstanding test is ECHO , since the pt had some improvement with toradol and no ECG changes just before leaving after ambulating in unit, will d/c with cuenca warning to return if any alarm, and to be off work this week with outpt follow up Total Time Spent: Greater than 30 minutes This includes examination of the patient, discharge planning, medication reconciliation, and communication with other providers. Discharge Instructions Please refer to the electronic Patient Visit Report (Discharge Instructions) for additional information.
== END 2017-11-20 17:45 | disposition home or self-care (01) ==
LOC: C.EDB 12:44 → C.2T 16:11 → ENRESERV 18:27
PROVIDERS: ADMIT Internal Medicine; ATTEND Internal Medicine
DX: R07.89 Other chest pain (principal); I10 Essential (primary) hypertension; G47.33 Obstructive sleep apnea (adult) (pediatric); E87.6 Hypokalemia; E83.51 Hypocalcemia; F17.200 Nicotine dependence, unspecified, uncomplicated; Z79.82 Long term (current) use of aspirin; Z87.442 Personal history of urinary calculi

== ENCOUNTER → 2017-11-23 | Outpatient (CLI) | payer BC ==
[~2017-11-23] MED LIST changes: +ASPI81TA28 PO; +ATEN-173 PO; +ATOR-24 PO; +CLOP1TAB15 PO; -FLUO10CA48 PO; +IBUP1CAP9 PO; +LOSA100T65 PO; -LOSA50TA6 PO; -TRD10 PO
[2017-11-23 16:22] LABS: BLOOD UREA NITROGEN 13 mg/dl (7-18); CARBON DIOXIDE 30 mmol/L (21-32); CREATININE 0.69 mg/dl (0.60-1.20); GLUCOSE 82 mg/dl (70-99); POTASSIUM 3.2 mmol/L (3.5-5.1); SODIUM 134 mmol/L (136-145)
== END | disposition home or self-care (01) ==
LOC: C.LABBC 11:46
PROVIDERS: ATTEND Nurse Practitioner Adult Health
DX: R31.29 Other microscopic hematuria (principal); I10 Essential (primary) hypertension

== ENCOUNTER 2018-07-12 19:41 | Emergency (ER) | payer SELFPAY ==
[~2018-07-12] VITALS: Ht 157.5 cm; Wt 78.9 kg
[~2018-07-12 19:41] MED LIST changes: -IBUP1CAP9 PO; +IBUP200C80 PO
[2018-07-12 19:46] VITALS: TEMP 36.7; Ht 157.5 cm; Wt 78.9 kg
[2018-07-12] MEDS ORDERED: LORAZEPAM 1 MG TAB SL STA (20:00)
--- NOTE | 2018-07-12 20:33 | DIAGNOSTIC IMAGING REPORT ---
CT HEAD WITHOUT CONTRAST (CT) CLINICAL HISTORY: Severe head COMPARISON STUDY: No previous studies for comparison. TECHNIQUE: Axial CT of the brain is performed from the vertex to the skull base. IV contrast was not administered for this examination. A dose lowering technique was utilized adhering to the principles of ALARA. CT DOSE: 537.48 mGy.cm FINDINGS: No intra or extra-axial mass lesions are visualized. There is no CT evidence of acute cortical infarction. There is no evidence of midline shift. There is no acute hemorrhage. No calvarial fractures are visualized. There is no evidence of pathologic ventricular dilatation. There is no evidence of acute sinusitis IMPRESSION: No acute intracranial findings Electronically signed by: Gómez Schultz M.D. 07/12/2018 8:31 PM Dictated Date/Time: 07/12/2018 8:31 PM
[2018-07-12 20:36] LABS: BASO % 0.6 %; BASO ABS # 0.05 K/uL (0-0.2); EOS % 3.3 %; EOS ABS # 0.29 K/uL (0-0.5); HEMATOCRIT 43.3 % (37-47); HEMOGLOBIN 14.3 g/dL (12.0-16.0); IG# 0.02 K/uL (0.00-0.02); LYMPH % 30.6 %; LYMPH ABS # 2.66 K/uL (1.2-3.4); MEAN CELL VOLUME 89.8 fL (80-100); MEAN CORPUSCULAR HEMOGLOBIN 29.7 pg (25-34); MEAN PLATELET VOLUME 10.5 fL (7.4-10.4); MONO % 7.9 %; MONO ABS # 0.69 K/uL (0.11-0.59); NEUT % 57.4 %; NEUT ABS # 4.97 K/uL (1.4-6.5); PLATELET COUNT 272 K/uL (130-400); RED CELL DISTRIBUTION WIDTH CV 12.7 % (11.5-14.5); RED CELL DISTRIBUTION WIDTH SD 41.3 fL (36.4-46.3); WHITE BLOOD COUNT 8.68 K/uL (4.8-10.8)
[2018-07-12] MEDS ORDERED: IBUPROFEN 200 MG TAB ONE (20:37)
--- NOTE | 2018-07-12 20:44 | DIAGNOSTIC IMAGING REPORT ---
CHEST ONE VIEW PORTABLE CLINICAL HISTORY: paraesthesia COMPARISON STUDY: 11/19/2017 FINDINGS: The cardiac and mediastinal contours are normal. There is no evidence of focal pulmonary consolidation. There is no evidence of failure. No pleural effusions are visualized.[ IMPRESSION: No active disease in the chest. Electronically signed by: Gómez Schultz M.D. 07/12/2018 8:43 PM Dictated Date/Time: 07/12/2018 8:42 PM
[2018-07-12] MEDS ORDERED: NURSING VERBAL MED ORDER ONE (20:45)
[2018-07-12] MEDS ORDERED: FLUO40CA8 PO (20:49)
[2018-07-12] MEDS ORDERED: FLUO10CA48 PO ×2 (20:50→20:53)
[2018-07-12] MEDS ORDERED: ATOR-24 PO (20:54)
[2018-07-12 20:55] LABS: ALBUMIN 4.3 gm/dl (3.4-5.0); ALKALINE PHOSPHATASE 72 U/L (45-117); ALT/SGPT 30 U/L (12-78); AST/SGOT 17 U/L (15-37); BLOOD UREA NITROGEN 13 mg/dl (7-18); CALCIUM 8.9 mg/dl (8.5-10.1); CARBON DIOXIDE 25 mmol/L (21-32); CREATININE 1.16 mg/dl (0.60-1.20); GLUCOSE 90 mg/dl (70-99); SODIUM 138 mmol/L (136-145); TOTAL PROTEIN 7.7 gm/dl (6.4-8.2)
[2018-07-12] MEDS ORDERED: TRIA37.5 PO (20:55)
[2018-07-12] MEDS ORDERED: POTASSIUM CHLORIDE 10 MEQ TABCR PO STA (21:07)
[2018-07-12 21:32] VITALS: BP 142/97; PULSE 95; O2SAT 94
--- NOTE | 2018-07-12 22:41 | EMERGENCY ROOM VISIT NOTE ---
History Report prepared by [place]: Rosaline Doe Under the Supervision of: Dr. Osman Denis D.O. First contact with patient: 19:53 Chief Complaint: OTHER COMPLAINT Stated Complaint: NUMBNESS HANDS ARM AND FACE History of Present Illness The patient is a 33 year old female who presents to the Emergency Room with complaints of numbness beginning this morning. She reports when it started this morning, she only had intermittent numbness and tingling in her left hand however, she states her numbness is constant and she can no longer move or feel her left hand as it is contracted. She notes that after her left hand started she also noticed in her right arm. She also has the same contractures in the right upper extremity and hand. She notes she tried shaking her arm but found no relief, so she called her PCP who recommended the pt come to the ED, however the patient did not want to until her recommended she come. Pt states she has a headache and has some mild upper abdominal pain but denies any change in vision, fevers, chest pain, shortness of breath, nausea, vomiting, diarrhea, pain with urination, and melena. Source of History: patient Onset: this morning Position: arm (left), hand (left) Quality: tingling, numbness Timing: constant (currently), intermittent (when it began) Associated Symptoms: + headache, + abdominal pain (mild upper), No fevers, No chest pain, No SOB, No nausea, No vomiting, No melena, No diarrhea, No urinary symptoms (pain with urination) Review of Systems See HPI for pertinent positives & negatives. A total of 10 systems reviewed and were otherwise negative. Past Medical & Surgical Medical Problems: (1) Kidney stone (2) QT prolongation Family History Patient reports no known family medical history. Social History Smoking Status: Current Every Day Smoker Alcohol Use: occasionally Drug Use: none Marital Status: Housing Status: lives with significant other Occupation Status: employed Current/Historical Medications Scheduled Aspirin (Aspirin Ec), 81 MG PO DAILY Atenolol (Tenormin), 25 MG PO QPM Atorvastatin (Lipitor), 40 MG PO QPM Clopidogrel (Plavix), 75 MG PO DAILY Fluoxetine (Prozac), 5 MG PO QAM Fluoxetine (Prozac), 10 MG PO QPM Fluoxetine Hcl (Prozac), 40 MG PO QAM Losartan Potassium (Cozaar), 100 MG PO DAILY Triamterene/Hctz (Dyazide 37.5MG/25MG), 1 TAB PO DAILY Allergies Coded Allergies: No Known Allergies (Unverified , 08/29/17) Physical Exam Vital Signs Date Time Temp Pulse Resp B/P (MAP) Pulse Ox O2 Delivery O2 Flow Rate FiO2 07/12/18 21:32 95 18 142/97 94 07/12/18 20:37 79 07/12/18 20:34 84 18 155/105 95 Room Air 07/12/18 19:46 36.7 99 18 162/111 100 Room Air Physical Exam GENERAL: Sitting up in bed with contractures of hands and upper extremities, alert, anxious appearing, well nourished, non-toxic EYE EXAM: normal conjunctiva. PERRL and EOM's intact. OROPHARYNX: no exudate, no erythema, lips, buccal mucosa, and tongue normal and mucous membranes are moist NECK: supple, no nuchal rigidity, no adenopathy, non-tender LUNGS: Clear to auscultation. Normal chest wall mechanics HEART: no murmurs, S1 normal and S2 normal ABDOMEN: abdomen soft, non-tender, normo-active bowel sounds, no masses, no rebound or guarding. BACK: Back is symmetrical on inspection and there is no deformity, no midline tenderness, no CVA tenderness. SKIN: no rashes and no bruising UPPER EXTREMITIES: upper extremities are grossly normal. LOWER EXTREMITIES: No pitting edema. NEURO EXAM: Normal sensorium, cranial nerves II-XII intact, normal speech, no weakness of arms, no weakness of legs. No drift. Finger to nose intact. Gross sensation intact. Contractures initially present in bilateral hands which are flexed and closed. No drift. Ambulates without difficulty Medical Decision & Procedures ER Provider Diagnostic Interpretation: Radiology results as stated below per my review and the radiologist's interpretation: CT HEAD WITHOUT CONTRAST (CT) CLINICAL HISTORY: Severe head COMPARISON STUDY: No previous studies for comparison. TECHNIQUE: Axial CT of the brain is performed from the vertex to the skull base. IV contrast was not administered for this examination. A dose lowering technique was utilized adhering to the principles of ALARA. CT DOSE: 537.48 mGy.cm FINDINGS: No intra or extra-axial mass lesions are visualized. There is no CT evidence of acute cortical infarction. There is no evidence of midline shift. There is no acute hemorrhage. No calvarial fractures are visualized. There is no evidence of pathologic ventricular dilatation. There is no evidence of acute sinusitis IMPRESSION: No acute intracranial findings Electronically signed by: Gómez Schultz M.D. 07/12/2018 8:31 PM CHEST ONE VIEW PORTABLE CLINICAL HISTORY: paraesthesia COMPARISON STUDY: 11/19/2017 FINDINGS: The cardiac and mediastinal contours are normal. There is no evidence of focal pulmonary consolidation. There is no evidence of failure. No pleural effusions are visualized.[ IMPRESSION: No active disease in the chest. Electronically signed by: Gómez Schultz M.D. 07/12/2018 8:43 PM Laboratory Results 07/12/18 20:17 Red Blood Count 4.82, Mean Corpuscular Volume 89.8, Mean Corpuscular Hemoglobin 29.7, Mean Corpuscular Hemoglobin Concent 33.0, Mean Platelet Volume 10.5, Neutrophils (%) (Auto) 57.4, Lymphocytes (%) (Auto) 30.6, Monocytes (%) (Auto) 7.9, Eosinophils (%) (Auto) 3.3, Basophils (%) (Auto) 0.6, Neutrophils # (Auto) 4.97, Lymphocytes # (Auto) 2.66, Monocytes # (Auto) 0.69, Eosinophils # (Auto) 0.29, Basophils # (Auto) 0.05 07/12/18 20:17 Test 07/12/18 20:17 White Blood Count 8.68 K/uL (4.8-10.8) Red Blood Count 4.82 M/uL (4.2-5.4) Hemoglobin 14.3 g/dL (12.0-16.0) Hematocrit 43.3 % (37-47) Mean Corpuscular Volume 89.8 fL (80-100) Mean Corpuscular Hemoglobin 29.7 pg (25-34) Mean Corpuscular Hemoglobin Concent 33.0 g/dl (32-36) Platelet Count 272 K/uL (130-400) Mean Platelet Volume 10.5 fL (7.4-10.4) Neutrophils (%) (Auto) 57.4 % Lymphocytes (%) (Auto) 30.6 % Monocytes (%) (Auto) 7.9 % Eosinophils (%) (Auto) 3.3 % Basophils (%) (Auto) 0.6 % Neutrophils # (Auto) 4.97 K/uL (1.4-6.5) Lymphocytes # (Auto) 2.66 K/uL (1.2-3.4) Monocytes # (Auto) 0.69 K/uL (0.11-0.59) Eosinophils # (Auto) 0.29 K/uL (0-0.5) Basophils # (Auto) 0.05 K/uL (0-0.2) RDW Standard Deviation 41.3 fL (36.4-46.3) RDW Coefficient of Variation 12.7 % (11.5-14.5) Immature Granulocyte % (Auto) 0.2 % Immature Granulocyte # (Auto) 0.02 K/uL (0.00-0.02) Anion Gap 11.0 mmol/L (3-11) Est Creatinine Clear Calc Drug Dose 67.7 ml/min Estimated GFR () 72.2 Estimated GFR (Non- 62.3 BUN/Creatinine Ratio 11.4 (10-20) Calcium Level 8.9 mg/dl (8.5-10.1) Total Bilirubin 0.4 mg/dl (0.2-1) Direct Bilirubin 0.1 mg/dl (0-0.2) Aspartate Amino Transf (AST/SGOT) 17 U/L (15-37) Alanine Aminotransferase (ALT/SGPT) 30 U/L (12-78) Alkaline Phosphatase 72 U/L (45-117) Troponin I < 0.015 ng/ml (0-0.045) Total Protein 7.7 gm/dl (6.4-8.2) Albumin 4.3 gm/dl (3.4-5.0) Laboratory results per my review. Medications Administered Medications (Trade) Dose Ordered Sig/Alfa Route Start Time Stop Time Status Last Admin Dose Admin Lorazepam (Ativan Tab) 1 mg NOW STAT SL 07/12/18 20:00 07/12/18 20:04 DC 07/12/18 20:15 1 MG Ibuprofen (Advil Tab) 400 mg STK-MED ONCE .ROUTE 07/12/18 20:37 07/12/18 20:38 DC 07/12/18 20:39 400 MG Potassium Chloride (Klor-Con M10) 40 meq NOW STAT PO 07/12/18 21:07 07/12/18 21:08 DC 07/12/18 21:12 40 MEQ ECG Per My Interpretation Indication: other (numbness) Rate (beats per minute): 75 Rhythm: sinus rhythm Findings: nonspecific-ST abn (Lateral), other (normal axis) ED Course ED COURSE: Vital signs were reviewed and showed hypertension situationally The patients medical record was reviewed The above diagnostic studies were performed and reviewed. ED treatments and interventions as stated above. 1954: The patient was evaluated in room C3. A complete history and physical examination was performed. 1999: Ordered Lorazepam 1 mg SL 2036: Ordered Ibuprofen 400 mg .route 2106: Upon reevaluation, the patient has no cramping in her hands but does have some paraesthesias. I discussed my findings with the patient and she understands and agrees with the treatment plan. Based on the patients age, coexisting illnesses, exam and lab findings the decision to treat as an outpatient was made. The patient remained stable while under my care. The patient appeared well at the time of discharge. Medical Decision Differential Diagnosis includes but is not limited to ischemic Stroke, hemorrhagic stroke, bells palsy, mass, neoplasm, migraine headache, seizure, subarachnoid hemorrhage, TIA, and transient global amnesia. Patient is a 33-year-old female who presents the ER for paresthesias and cramps in her bilateral upper extremities. Upon presentation patient had contractures at the wrist in the hands. I coached her through breathing and these slowly resolved during examination. She is neurologically intact. CT head was negative. BNP of all CBC shows mild hypokalemia. Bilirubin LFTs and troponin was negative. Chest x-ray was unremarkable. Patient was updated bedside. She was given Ativan and fluids. She had complete resolution of her symptoms. Patient was discharged to follow-up with PCP as an outpatient. Instructed not to drive for the remainder the night. Discussed with Pt concerning signs and symptoms to watch out for. Pt was instructed to follow up with their PCP and discussed with the patient their option to return to the ED at anytime for persistent or worsening symptoms. The appropriate anticipatory guidance and out- patient management, including indications for return to the emergency department , were explained at length to the patient and understood. Medication Reconcilliation Current Medication List: was personally reviewed by me Blood Pressure Screening Patient's blood pressure: Elevated blood pressure Blood pressure disposition: Elevated BP felt to be situational Impression Primary Impression: Cramping of hands Additional Impressions: Paresthesia Hypokalemia Scribe Attestation The scribe's documentation has been prepared under my direction and personally reviewed by me in its entirety. I confirm that the note above accurately reflects all work, treatment, procedures, and medical decision making performed by me. Departure Information Dispostion Home / Self-Care Referrals Janette Stearns CRNP (PCP) Patient Instructions My [facility] Additional Instructions Please follow up with your primary care doctor with in the next 24 hours. Any worsening of your symptoms, please return to the ED immediately. This includes any fevers greater than 100.4, worsening pain, chest pain, shortness breath, persistent nausea, vomiting, unable to eat or drink, weakness or numbness in her arms or hands, change in vision, or any other concerning signs or symptoms from your standpoint. You were given medications during this visit that will inhibit your ability to drive, operate machinery and work. Please do NOT drive, operate machinery, drink alcohol or work for the next 12hrs. Problem Qualifiers
== END 2018-07-12 21:34 | disposition home or self-care (01) ==
LOC: C.EDB 19:43 → C.EDC 21:34
DX: R25.2 Cramp and spasm (principal); R20.2 Paresthesia of skin; E87.6 Hypokalemia; F17.210 Nicotine dependence, cigarettes, uncomplicated; Z79.82 Long term (current) use of aspirin; Z79.02 Long term (current) use of antithrombotics/antiplatelets; Z79.899 Other long term (current) drug therapy

== ENCOUNTER 2022-03-25 02:54 | Inpatient (IN) ==
--- NOTE | 2022-03-25 03:07 | Emergency Department Note ---
Impression & Plan Stroke-like symptoms Admit to the [facility] service ED Provider Note NAME: JAMES ROTHMAN AGE: 37 SEX: F ARRIVES VIA: Ambulance INFORMANT: Patient EMS ED PROVIDER(S): Lisa Betts DO CHIEF COMPLAINT: Stroke symptoms PLAN: Disposition: Haylee lagos; admit to the [facility] service Condition: Stable MEDICAL DECISION MAKING: This is a 37-year-old female patient with a previous history of CVA who presents to the emergency department by EMS after awakening with worsened right-sided weakness and right-sided facial droop. A stroke alert was called. CT of the brain and CTA of the brain and neck were negative. The patient's right arm and right leg weakness have slightly improved as has the right-sided facial droop. However the deficits are still slightly worse compared to what she was left with from her previous stroke from 2019. She will require admission to the hospital for continued stroke work-up including an MRI of the brain. I discussed the case with the [facility] and they will evaluate for further management. Triage Nursing notes reviewed and agree with them. Additional history obtained from EMS Prior medical records reviewed-specifically from September 2018 when she had a previous stroke Vital Signs: reviewed and remarkable for no significant abnormalities Differential diagnosis: TIA; intracranial hemorrhage; CVA Diagnostics interpreted by me: ECG: Sinus tachycardia at [address] segment depression in the inferior leads and lateral leads compared to an EKG from March 2020. There is no ectopy. Cardiac Monitoring: Sinus rhythm at 100. Laboratory studies: See below Imaging studies: As per stat rad CT head: Normal head CT. CTA head: Normal CT angiogram of the brain CTA neck: The aortic arch is nondilated. There is no aneurysm or dissection. The carotid bifurcations are widely patent bilaterally. No atherosclerotic plaque or stenosis. The internal carotid arteries are mildly tortuous but widely patent bilaterally. The vertebral arteries are widely patent bilaterally with mild tortuosity. No stenosis or dissection. Consultation(s): Haylee Carroll HPI: 37/F arrives for evaluation of stroke symptoms. The patient went to bed at 9 PM and woke with increased weakness in her right arm and right leg with right-sided facial droop. The patient has a history of a previous embolic stroke in 2019 which left her with some right-sided deficits. She also had a vertebral artery dissection. Currently she takes Coumadin at 7.5 mg for 3 days a week and 5 mg for 4 days a week. She had an INR checked yesterday which was 1.7 which is subtherapeutic. ROS: See above HPI for pertinent positives & negatives. A total of 10 systems reviewed and were otherwise negative. PAST MEDICAL HISTORY:See Below PAST SURGICAL HISTORY:See Below FAMILY HISTORY:See Below SOCIAL HISTORY:See Below HOME MEDICATIONS:See list ALLERGIES:None VITALS:See Below PHYSICAL EXAMINATION: HEENT: Head - normocephalic and atraumatic. Pupils are equal, round, and reactive to light. Extraocular eye muscles are intact and sclera are anicteric. Ears - bilaterally patent canals with noninjected tympanic membranes and no evidence of hemotympanum. Nose - moist nasal mucosa without discharge. Mouth - moist buccal mucosa. Oropharynx is nonerythematous and there is no tonsillar exudate or edema noted. Neck: Supple; no JVD, nuchal rigidity, cervical lymphadenopathy, or auscultated bruits. Heart: Regular rate and rhythm. There is a normal S1 and S2 with no murmurs, clicks, or gallops appreciated. Lungs: Clear to auscultation bilaterally with no wheezes, rales, or rhonchi. Abdomen: Soft, completely nontender, nondistended, with good bowel sounds. There are no palpable pulsatile masses or hepatosplenomegaly. There is no guarding, rigidity, or rebound noted. Extremities: No evidence of cyanosis, clubbing, or edema. There are easily palpable peripheral pulses. Neuro:The patient is awake and alert, oriented to day, time, and place. Muscle strength is 5/5 in her left leg and left arm. The muscle strength in the right lower extremity is 1/5-specifically at the hip and knee and is 3/5 in the right upper extremity-specifically at the shoulder, 4/5 at the elbow and wrist. The patient did seem to have an episode of expressive aphasia when she initially arrived but this has since resolved. ED COURSE: Times/Reassessments: The patient was a stroke alert on presentation went straight to the CT scan for CT and CTA of the brain and neck. 310: Patient was evaluated in room B1. Laboratory studies were drawn as above. An order was placed for continuous cardiac monitoring. The patient was in a normal sinus rhythm at a rate of 100. A twelve-lead EKG was obtained as described above. Laboratory studies were drawn as above. [place] telestroke was performed. Patient's neurological symptoms seem to be improving. I have personally spent greater than 30 minutes of critical care time in the direct management of this patient. This includes bedside care, interpretation of diagnostic studies, and testing, discussion with consultants, patient, and family members, and other required patient management activities. This 30 mi nutes is in excess of all separately billable procedures. 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 HTN (hypertension) Mesenteric artery stenosis Migraine Paresthesia Valvular heart disease Surgical History H/O tubal ligation H/O: hysterectomy Vaginal, cystocele and apical vault suspension [facility] [place] 01/2022 Family History Mother Hypertension Father Hypertension Social History (Updated 03/25/22 @ 09:33 by Afshin Martinez MD) Smoking Status: Never smoker Second Hand Exposure: No; Hx Alcohol Use: No Hx Substance Use: No Preferred Language: Frisian Communication Ability: Effective Visual Impairment: No Limitations Hearing Ability: Normal Hairspring Vibrator Required: No Beliefs That Will Affect Care: None marital status: Current Living Situation: Family current occupational status: employed and disabled current occupation: [employer] from home, 20 hours per week, Feels Safe at Home: Yes Assistive Devices: Cane and Walker Allergies Allergies Allergy/AdvReac Type Severity Reaction Status Date / Time No Known Allergies Allergy Verified 03/25/22 03:09 Home Meds Home Medications Medication Instructions Recorded Confirmed atorvastatin 40 mg tablet 40 mg PO PM 10/08/18 03/25/22 alprazolam 0.5 mg tablet 0.5 mg PO TID PRN tab 08/31/19 03/25/22 fluoxetine 60 mg tablet 60 mg PO DAILY 05/03/20 03/25/22 amlodipine 10 mg tablet 10 mg PO DAILY 05/17/20 03/25/22 losartan 100 1 tab PO DAILY 03/25/22 03/25/22 mg-hydrochlorothiazide 25 mg tablet metoprolol succinate 25 mg 25 mg PO DAILY 03/25/22 03/25/22 tablet,extended release 24 hr warfarin 5 mg tablet See Rx Instructions .ROUTE .COMPLEX 03/25/22 03/25/22 Previous Rx's Medication Instructions Recorded gabapentin 600 mg tablet 600 mg PO TID #90 tab 01/13/22 amitriptyline 75 mg tablet 75 mg PO DAILY 30 Days #30 tab 02/23/22 clopidogrel 75 mg tablet (Plavix) 75 mg PO DAILY #30 tab 03/25/22 Results & Data (ED) Vital Signs Vital Signs - 24 hr 03/25/22 03:01 03/25/22 03:16 03/25/22 03:20 Temperature 36.6 C Temperature Source Temporal Artery Scan Pulse Rate 105 H 102 H 97 H Pulse Rate [Right Finger] Pulse Rate from SpO2 Sensor 101 H 98 H Respiratory Rate 20 25 H 25 H Respiratory Effort / Characteristics Non-Labored Spontaneous Respiratory Depth Normal Respiratory Pattern Regular Blood Pressure 125/82 117/87 Blood Pressure [Right Arm] Blood Pressure Mean 96 97 Blood Pressure Mean [Right Arm] Blood Pressure Position Sitting Blood Pressure Position [Right Arm] Pulse Oximetry 100 97 96 Oxygen Delivery Method Room Air Sepsis Recent Fever Within 48 Hours No Sepsis New/Unexplained Change in Mental Status Yes Sepsis Action Taken by Nursing Physician Notified 03/25/22 03:30 03/25/22 03:40 03/25/22 03:45 Temperature Temperature Source Pulse Rate 99 H 98 H 90 Pulse Rate [Right Finger] 100 H Pulse Rate from SpO2 Sensor 100 H 96 H 89 Respiratory Rate 18 19 23 Respiratory Effort / Characteristics Respiratory Depth Respiratory Pattern Blood Pressure 131/79 101/73 Blood Pressure [Right Arm] 131/79 Blood Pressure Mean 96 82 Blood Pressure Mean [Right Arm] 96 Blood Pressure Position Blood Pressure Position [Right Arm] Sitting Pulse Oximetry 97 98 99 Oxygen Delivery Method Room Air Sepsis Recent Fever Within 48 Hours Sepsis New/Unexplained Change in Mental Status Sepsis Action Taken by Nursing 03/25/22 03:50 03/25/22 04:05 03/25/22 04:12 Temperature Temperature Source Pulse Rate 93 H 91 H 81 Pulse Rate [Right Finger] Pulse Rate from SpO2 Sensor 92 H 86 85 Respiratory Rate 16 22 15 Respiratory Effort / Characteristics Respiratory Depth Respiratory Pattern Blood Pressure 122/81 Blood Pressure [Right Arm] Blood Pressure Mean 94 Blood Pressure Mean [Right Arm] Blood Pressure Position Blood Pressure Position [Right Arm] Pulse Oximetry 97 96 100 Oxygen Delivery Method Sepsis Recent Fever Within 48 Hours Sepsis New/Unexplained Change in Mental Status Sepsis Action Taken by Nursing 03/25/22 04:30 03/25/22 05:00 Temperature Temperature Source Pulse Rate 77 78 Pulse Rate [Right Finger] Pulse Rate from SpO2 Sensor 78 76 Respiratory Rate 16 13 Respiratory Effort / Characteristics Respiratory Depth Respiratory Pattern Blood Pressure 113/75 Blood Pressure [Right Arm] Blood Pressure Mean 87 Blood Pressure Mean [Right Arm] Blood Pressure Position Blood Pressure Position [Right Arm] Pulse Oximetry 96 94 Oxygen Delivery Method Sepsis Recent Fever Within 48 Hours Sepsis New/Unexplained Change in Mental Status Sepsis Action Taken by Nursing Laboratory Data Result diagrams: 03/25/22 02:40 03/25/22 02:40 Lab Results 03/25/22 03/25/22 03/25/22 Range/Units 02:40 02:40 03:14 WBC 11.11 H (4.8-10.8) K/uL RBC 4.88 (4.2-5.4) M/uL Hgb 13.3 (12.0-16.0) g/dL Hct 40.3 (37-47) % MCV 82.6 (80-100) fL MCH 27.3 (25-34) pg MCHC 33.0 (32-36) g/dL RDW Std Deviation 45.2 (36.4-46.3) fL RDW Coeff of Pierre 14.9 H (11.5-14.5) % Plt Count 316 (130-400) K/uL MPV 10.6 H (7.4-10.4) fL Immature Gran % (Auto) 0.3 % Neut % (Auto) 53.2 % Lymph % (Auto) 35.8 % Clayton % (Auto) 8.2 % Eos % (Auto) 2.0 % Baso % (Auto) 0.5 % Neut # (Auto) 5.91 (1.4-6.5) K/uL Lymph # (Auto) 3.98 H (1.2-3.4) K/uL Clayton # (Auto) 0.91 H (0.11-0.59) K/uL Eos # (Auto) 0.22 (0-0.5) K/uL Baso # (Auto) 0.06 (0-0.2) K/uL Immature Gran # (Auto) 0.03 H (0.00-0.02) K/uL PT 17.3 H (9.0-12.0) Seconds INR 1.7 H (0.9-1.1) APTT 33.5 H (21.0-31.0) Seconds PTT Ratio 1.2 Sodium 139 (136-145) mmol/L Potassium 3.4 L (3.5-5.1) mmol/L Chloride 105 (98-107) mmol/L Carbon Dioxide 24 (21-32) mmol/L Anion Gap 10 (3-11) BUN 7 (6-23) mg/dl Creatinine 0.76 (0.6-1.2) mg/dl Est Cr Clr Drug Dosing 98.1 ml/min Est GFR ( Amer) 117.0 ml/min Est GFR (Non-Af Amer) 100.9 ml/min BUN/Creatinine Ratio 9.2 L (10-20) Glucose 89 (70-99(Fasting)) mg/dl Calcium 8.9 (8.5-10.1) mg/dl Magnesium 2.0 (1.7-2.4) mg/dl Total Bilirubin 0.5 (0.2-1.0) mg/dl AST 12 L (13-39) U/L ALT 10 (7-52) U/L Alkaline Phosphatase 52 (34-104) U/L Troponin I High Sens 2.9 (0-14) pg/ml Total Protein 7.0 (6.0-8.3) gm/dl Albumin 4.5 (3.4-5.0) gm/dl Globulin 2.5 (2.5-4.0) gm/dl Albumin/Globulin Ratio 1.8 (0.9-2) SARS-CoV-2, RNA, NAAT (NEGATIVE) 03/25/22 Range/Units 03:33 WBC (4.8-10.8) K/uL RBC (4.2-5.4) M/uL Hgb (12.0-16.0) g/dL Hct (37-47) % MCV (80-100) fL MCH (25-34) pg MCHC (32-36) g/dL RDW Std Deviation (36.4-46.3) fL RDW Coeff of Pierre (11.5-14.5) % Plt Count (130-400) K/uL MPV (7.4-10.4) fL Immature Gran % (Auto) % Neut % (Auto) % Lymph % (Auto) % Clayton % (Auto) % Eos % (Auto) % Baso % (Auto) % Neut # (Auto) (1.4-6.5) K/uL Lymph # (Auto) (1.2-3.4) K/uL Clayton # (Auto) (0.11-0.59) K/uL Eos # (Auto) (0-0.5) K/uL Baso # (Auto) (0-0.2) K/uL Immature Gran # (Auto) (0.00-0.02) K/uL PT (9.0-12.0) Seconds INR (0.9-1.1) APTT (21.0-31.0) Seconds PTT Ratio Sodium (136-145) mmol/L Potassium (3.5-5.1) mmol/L Chloride (98-107) mmol/L Carbon Dioxide (21-32) mmol/L Anion Gap (3-11) BUN (6-23) mg/dl Creatinine (0.6-1.2) mg/dl Est Cr Clr Drug Dosing ml/min Est GFR ( Amer) ml/min Est GFR (Non-Af Amer) ml/min BUN/Creatinine Ratio (10-20) Glucose (70-99(Fasting)) mg/dl Calcium (8.5-10.1) mg/dl Magnesium (1.7-2.4) mg/dl Total Bilirubin (0.2-1.0) mg/dl AST (13-39) U/L ALT (7-52) U/L Alkaline Phosphatase (34-104) U/L Troponin I High Sens (0-14) pg/ml Total Protein (6.0-8.3) gm/dl Albumin (3.4-5.0) gm/dl Globulin (2.5-4.0) gm/dl Albumin/Globulin Ratio (0.9-2) SARS-CoV-2, RNA, NAAT NEGATIVE (NEGATIVE) Administered Medications Discontinued Medications Alprazolam (Alprazolam 0.5 Mg Tablet) 0.5 mg PO NOW STA Stop: 03/25/22 07:56 Last Admin: 03/25/22 09:07 Dose: 0.5 mg Documented by: [id number] Alprazolam (Alprazolam 0.5 Mg Tablet) Confirm Administered Dose 0.5 mg .ROUTE .STK-MED ONE Stop: 03/25/22 09:07 Last Admin: 03/25/22 09:07 Dose: 0.5 mg Documented by: [id number] Amitriptyline HCl (Amitriptyline Hcl 25 Mg Tab) 75 mg PO DAILY LUZ MARINA Stop: 04/24/22 08:59 Last Admin: 03/25/22 08:51 Dose: 75 mg Documented by: [id number] Aspirin (Aspirin 81 Mg Chew) 324 mg PO NOW STA Stop: 03/25/22 05:54 Last Admin: 03/25/22 06:05 Dose: 324 mg Documented by: [id number] Atorvastatin Calcium (Atorvastatin 40 Mg Tab) 80 mg PO QAM LUZ MARINA Stop: 04/24/22 08:59 Last Admin: 03/25/22 08:51 Dose: 80 mg Documented by: [id number] Clopidogrel Bisulfate (Clopidogrel Bisulfate 300 Mg Tab) 300 mg PO NOW ONE Stop: 03/25/22 07:16 Last Admin: 03/25/22 09:15 Dose: 300 mg Documented by: [id number] Fluoxetine HCl (Fluoxetine Hcl 20 Mg Cap) 60 mg PO DAILY LUZ MARINA Stop: 04/24/22 08:59 Last Admin: 03/25/22 08:51 Dose: 60 mg Documented by: [id number] Potassium Chloride/Sodium Chloride (Normal Saline W/20 Meq Kcl) 20 meq in 1,000 mls @ 100 mls/hr IV .Q10H LUZ MARINA; Protocol Stop: 03/25/22 17:14 Last Admin: 03/25/22 08:51 Dose: 100 mls/hr Documented by: [id number] Ioversol (Optiray 320 125ml) 125 ml IV ONCE ONE Stop: 03/25/22 03:14 Last Admin: 03/25/22 03:13 Dose: 118 ml Documented by: [id number] Lorazepam (Lorazepam 2 Mg/1 Ml Vial) 1 mg IV ONE ONE Stop: 03/25/22 07:46 Last Admin: 03/25/22 07:56 Dose: 1 mg Documented by: [id number] Imaging Data Radiologist's Impression: Head CT 03/25/22 02:[address], HEAD & NECK CTA HISTORY: Right arm weakness with facial numbness. Stroke Like Symptoms TECHNIQUE: Multiaxial CT images of the head were performed both before and after the intravenous administration of contrast to evaluate the major cerebral vessels. Multiaxial CT images of the neck were also performed following the intravenous administration of contrast to evaluate the major cervical vessels. Maximum intensity projection images were also obtained. A dose lowering technique was utilized adhering to the principles of ALARA. COMPARISON: Head and neck CTA 06/27/2021. FINDINGS: NONCONTRAST HEAD CT: Old small left cerebellar infarcts are again noted. There is no mass, hematoma, midline shift, acute infarct identified. The paranasal sinuses and mastoid air cells are clear. The calvarium and skull base are intact . HEAD CTA: Visualized intracranial internal carotid arteries, distal vertebral arteries, and basilar artery are widely patent. There is no significant stenosis, occlusion, or aneurysm seen within the bilateral ACAs, MCAs, or rehab therapy manager. 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 This is best seen on image 7. The major dural venous sinuses are patent. The aortic arch and proximal great vessels are widely patent. There is no significant stenosis, occlusion, or dissection identified within the bilateral common carotid, internal carotid, or vertebral arteries. 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 IMPRESSION: 1. No significant stenosis, occlusion, or aneurysm within the [place]. 2. No significant stenosis, occlusion, or dissection identified within the carotid or vertebral arteries. 3. 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 ACT 112: Negative or not required by law. Electronically signed by: Tito Enriquez M.D. 03/25/2022 7:16 AM Head CTA 03/25/22 02:[address], HEAD & NECK CTA HISTORY: Right arm weakness with facial numbness. Stroke Like Symptoms TECHNIQUE: Multiaxial CT images of the head were performed both before and after the intravenous administration of contrast to evaluate the major cerebral vessels. Multiaxial CT images of the neck were also performed following the intravenous administration of contrast to evaluate the major cervical vessels. Maximum intensity projection images were also obtained. A dose lowering technique was utilized adhering to the principles of ALARA. COMPARISON: Head and neck CTA 06/27/2021. FINDINGS: NONCONTRAST HEAD CT: Old small left cerebellar infarcts are again noted. There is no mass, hematoma, midline shift, acute infarct identified. The paranasal sinuses and mastoid air cells are clear. The calvarium and skull base are intact. HEAD CTA: Visualized intracranial internal carotid arteries, distal vertebral arteries, and basilar artery are widely patent. There is no significant stenosis, occlusion, or aneurysm seen within the bilateral ACAs, MCAs, or rehab therapy manager. 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 This is best seen on image 7. The major dural venous sinuses are patent. The aortic arch and proximal great vessels are widely patent. There is no significant stenosis, occlusion, or dissection identified within the bilateral common carotid, internal carotid, or vertebral arteries. 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 IMPRESSION: 1. No significant stenosis, occlusion, or aneurysm within the [place]. 2. No significant stenosis, occlusion, or dissection identified within the carotid or vertebral arteries. 3. 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 ACT 112: Negative or not required by law. Electronically signed by: Tito Enriquez M.D. 03/25/2022 7:16 AM Neck CTA 03/25/22 02:[address], HEAD & NECK CTA HISTORY: Right arm weakness with facial numbness. Stroke Like Symptoms TECHNIQUE: Multiaxial CT images of the head were performed both before and after the intravenous administration of contrast to evaluate the major cerebral vessels. Multiaxial CT images of the neck were also performed following the intravenous administration of contrast to evaluate the major cervical vessels. Maximum intensity projection images were also obtained. A dose lowering technique was utilized adhering to the principles of ALARA. COMPARISON: Head and neck CTA 06/27/2021. FINDINGS: NONCONTRAST HEAD CT: Old small left cerebellar infarcts are again noted. There is no mass, hematoma, midline shift, acute infarct identified. The paranasal sinuses and mastoid air cells are clear. The calvarium and skull base are intact. HEAD CTA: Visualized intracranial internal carotid arteries, distal vertebral arteries, and basilar artery are widely patent. There is no significant stenosis, occlusion, or aneurysm seen within the bilateral ACAs, MCAs, or rehab therapy manager. 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 This is best seen on image 7. The major dural venous sinuses are patent. The aortic arch and proximal great vessels are widely patent. There is no significant stenosis, occlusion, or dissection identified within the bilateral common carotid, internal carotid, or vertebral arteries. 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 IMPRESSION: 1. No significant stenosis, occlusion, or aneurysm within the [place]. 2. No significant stenosis, occlusion, or dissection identified within the carotid or vertebral arteries. 3. 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 ACT 112: Negative or not required by law. Electronically signed by: Tito Enriquez M.D. 03/25/2022 7:16 AM Discharge Plan Visit Data Chief Complaint: Stroke Alert Stated Complaint: STROKE SYMPTOMS ED Provider: Lisa Betts Discharge Problem: Stroke-like symptoms Patient Disposition: Admitted As Inpatient Discharge Instructions Interventions: ED Discharge Assessment Last Done: 03/25/22 06:13
[2022-03-25] MEDS ORDERED: OPTIRAY 320 125ml IV ONE (03:13)
[2022-03-25 03:24] LABS: Basophils # (auto) 0.06 K/uL (0-0.2); Basophils % (auto) 0.5 %; Eosinophils # (auto) 0.22 K/uL (0-0.5); Hematocrit (blood only) 40.3 % (37-47); Hemoglobin 13.3 g/dL (12.0-16.0); Immature Granulocytes # (auto) 0.03 K/uL (0.00-0.02); Immature Granulocytes % (auto) 0.3 %; Lymphocytes # (auto) 3.98 K/uL (1.2-3.4); Lymphocytes % (auto) 35.8 %; Mean Corpuscular Hemoglobin 27.3 pg (25-34); Mean Corpuscular Volume 82.6 fL (80-100); Mean Platelet Volume 10.6 fL (7.4-10.4); Monocytes # (auto) 0.91 K/uL (0.11-0.59); Monocytes % (auto) 8.2 %; Neutrophils # (auto) 5.91 K/uL (1.4-6.5); Neutrophils % (auto) 53.2 %; Platelet Count 316 K/uL (130-400); RDW Coefficient of Variation 14.9 % (11.5-14.5); RDW Standard Deviation 45.2 fL (36.4-46.3); Red Blood Count 4.88 M/uL (4.2-5.4); White Blood Count 11.11 K/uL (4.8-10.8)
[2022-03-25 03:36] LABS: Albumin Globulin Ratio 1.8 (0.9-2); Albumin Level 4.5 gm/dl (3.4-5.0); BUN Creatinine Ratio 9.2 (10-20); Bilirubin,Total 0.5 mg/dl (0.2-1.0); Calcium 8.9 mg/dl (8.5-10.1); Creatinine Clr Calc Pharmacy 98.1 ml/min; Est GFR (Non-African American) 100.9 ml/min; Globulin 2.5 gm/dl (2.5-4.0); Potassium 3.4 mmol/L (3.5-5.1)
[2022-03-25 03:38] LABS: Troponin I High Sensitivity 2.9 pg/ml (0-14)
[2022-03-25 03:44] LABS: INR 1.7 (0.9-1.1); Partial Thromboplastin Ratio 1.2; Partial Thromboplastin Time 33.5 Seconds (21.0-31.0); Prothrombin Time 17.3 Seconds (9.0-12.0)
--- NOTE | 2022-03-25 04:23 | History & Physical Report ---
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 Stroke-like symptoms including RUE/RLE weakness/tingling - Pt with hx of stroke and lupus anticoagulant syndrome - Head CT and head/neck CTA 03/25/22 with no acute findings - Symptoms are improving but have not yet resolved - Telestroke contacted while in ER - Not a tpa candidate - Brain MRI ordered - INR subtherapeutic at 1.7 - Load with ASA 324mg chewable as well as Plavix 300mg - Continue home Warfarin - PT/OT/ST ordered - Regular diet once patient passes dysphagia screen - Will check lipid profile, TSH, A1c, CRP, ESR - TTE w/ bubble study ordered - HS-troponin negative - Continue neuro checks q4h - Increase atorvastatin from 40mg po daily to high dose atorvastatin 80mg po daily - Consulted neurology; appreciate their recommendations HTN - Normotensive at this time - Hold home amlodipine and losartan-HCTZ - Allow for permissive HTN Anxiety - Continue home fluxoetine Occipital neuralgia - Continue home amitriptyline Hx mesenteric artery stenosis and lupus anticoagulant syndrome - Continue home warfarin Code status: FULL CODE FENGI: NPO but once passes dysphagia screen can have regular diet DVT Ppx: on home anticoagulant (2) HTN (hypertension): (3) Migraine: (4) Mesenteric artery stenosis: (5) H/O: stroke with residual effects: (6) Occipital neuralgia: (7) Lupus anticoagulant disorder: (8) residential current use of anticoagulant therapy: History of Present Illness Primary Care Provider: Ashley Pitt MD Birdie is a 37 yo female with PMHx significant for 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 Patient reports that yesterday morning around 11:00am she had an episode of right arm/hand weakness/tingling described as "falling asleep." She was able to "shake out" the arm which resolved the symptoms. Patient had recurrent symptoms with same presentation in the right arm/hand around 7:00pm which she again was able to resolve. Patient went to bed at 9:00pm and awoke at 2:00am with sig nificantly increased right arm and leg weakness and tingling. She also had right facial numbness/tingling. Patient denies right facial droop but per EMS report patient did have a right facial droop. Also denies speech difficulty or vision changes. + nausea but no vomiting. + headache. Patient was concerned as these symptoms were reminiscent of her hx of stroke, so she called EMS for transport to the hospital. At present time, patient reports slight improvement in the right hand weakness but no improvement in right leg weakness. She denies recent illness and states that prior to symptoms today she was in her usual state of health. Specifically, patient denies fever, chills, congestion, rhinorrhea, sore throat, cough, sinus pain, SOB, CP, abd pain, diarrhea, constipation, or urinary symptoms. Patient takes gabapentin irregularly for hx of headaches and last took a dose of gabapentin a few days ago. She is currently on laxatives to prevent constipation/straining for BM s/p surgical repair of pelvic prolapse and partial hysterectomy (sparring ovaries and fallopian tubes) 7 weeks ago. She has had no other changes in her medications. Patient reports compliance with her medications including warfarin, ASA, amlodipine, losartan-HCTZ, and metoprolol. Patient is a former smoker (vape) but quit approximately 3 years ago. Former alcohol use but quit a couple years ago. Works for [employer] at [employer]. Allergies Allergy/AdvReac Type Severity Reaction Status Date / Time No Known Allergies Allergy Verified 03/25/22 03:09 Home Medications Medication Instructions Recorded Confirmed Type atorvastatin 40 mg tablet 40 mg PO PM 10/08/18 03/25/22 History alprazolam 0.5 mg tablet 0.5 mg PO TID PRN tab 08/31/19 03/25/22 History fluoxetine 60 mg tablet 60 mg PO DAILY 05/03/20 03/25/22 History amlodipine 10 mg tablet 10 mg PO DAILY 05/17/20 03/25/22 History gabapentin 600 mg tablet 600 mg PO TID #90 tab 01/13/22 03/25/22 Rx amitriptyline 75 mg tablet 75 mg PO DAILY 30 Days #30 tab 02/23/22 03/25/22 Rx clopidogrel 75 mg tablet (Plavix) 75 mg PO DAILY #30 tab 03/25/22 Rx losartan 100 1 tab PO DAILY 03/25/22 03/25/22 History mg-hydrochlorothiazide 25 mg tablet metoprolol succinate 25 mg 25 mg PO DAILY 03/25/22 03/25/22 History tablet,extended release 24 hr warfarin 5 mg tablet See Rx Instructions .ROUTE .COMPLEX 03/25/22 03/25/22 History Past Med/Surg History Medical History Acute ischemic vertebrobasilar artery cerebellar stroke Breast cancer For clarification, she had atypical ductal hyperplasia of the breast and did NOT ever have breast cancer Dissection of mesenteric artery Dissection, 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 HTN (hypertension) Mesenteric artery stenosis Migraine Paresthesia Valvular heart disease Surgical History H/O tubal ligation H/O: hysterectomy Vaginal, cystocele and apical vault suspension [facility] [place] 01/2022 Family History Mother Hypertension Father Hypertension Social History (Updated 03/25/22 @ 09:33 by Afshin Martinez MD) Smoking Status: Never smoker Second Hand Exposure: No; Hx Alcohol Use: No Hx Substance Use: No Preferred Language: Cape Verdean Communication Ability: Effective Visual Impairment: No Limitations Hearing Ability: Normal Parks Worker Required: No Beliefs That Will Affect Care: None marital status: Current Living Situation: Family current occupational status: employed and disabled current occupation: [employer] from home, 20 hours per week, Feels Safe at Home: Yes Assistive Devices: Cane and Walker Review of Systems Review of Systems: See HPI Physical Exam Physical Exam: GENERAL: No acute distress. Well developed and well nourished. Vital signs reviewed as above. A/O x3. EYES: PERRLA. EOMI. Anicteric sclerae. HENT: Moist mucous membranes. No pharyngeal erythema or exudates. RESPIRATORY: Clear to auscultation bilaterally. No wheezing, rales, or rhonchi. CARDIOVASCULAR: Regular rate and rhythm. No murmurs. ABDOMEN: Soft, non-tender and non-distended. Normal bowel sounds. EXTREMITIES: No edema. Non-tender. SKIN: Warm, dry. No rashes or lesions. NEUROLOGIC: Alert. A/O x3. CN II-XII grossly in tact. Normal speech. No involuntary movements. Abnormal sensation to RUE and RLE compared to LUE and LLE, respectively, described as "tingling" to light touch. 2+ bilateral patellar reflexes. 2/5 strength to RLE. 3/5 strength to RUE. 5/5 strength in LUE and LLE. PSYCHIATRIC: Cooperative. Appropriate mood and affect. Results & Data Results & Data ([facility]) Vital Signs (Past 12 Hours) Vital Signs Temp Pulse Pulse Resp BP BP Pulse Ox 03/25/22 03:30 100 H 20 131/79 97 03/25/22 03:01 36.6 C 105 H 20 125/82 100 Laboratory Results 03/25/22 03/25/22 03/25/22 Range/Units 03:33 03:14 02:40 WBC (4.8-10.8) K/uL RBC (4.2-5.4) M/uL Hgb (12.0-16.0) g/dL Hct (37-47) % MCV (80-100) fL MCH (25-34) pg MCHC (32-36) g/dL RDW Std Deviation (36.4-46.3) fL RDW Coeff of Pierre (11.5-14.5) % Plt Count (130-400) K/uL MPV (7.4-10.4) fL Immature Gran % (Auto) % Neut % (Auto) % Lymph % (Auto) % Kendall % (Auto) % Eos % (Auto) % Baso % (Auto) % Neut # (Auto) (1.4-6.5) K/uL Lymph # (Auto) (1.2-3.4) K/uL Kendall # (Auto) (0.11-0.59) K/uL Eos # (Auto) (0-0.5) K/uL Baso # (Auto) (0-0.2) K/uL Immature Gran # (Auto) (0.00-0.02) K/uL PT 17.3 H (9.0-12.0) Seconds INR 1.7 H (0.9-1.1) APTT 33.5 H (21.0-31.0) Seconds PTT Ratio 1.2 Sodium 139 (136-145) mmol/L Potassium 3.4 L (3.5-5.1) mmol/L Chloride 105 (98-107) mmol/L Carbon Dioxide 24 (21-32) mmol/L Anion Gap 10 (3-11) BUN 7 (6-23) mg/dl Creatinine 0.76 (0.6-1.2) mg/dl Est Cr Clr Drug Dosing 98.1 ml/min Est GFR ( Amer) 117.0 ml/min Est GFR (Non-Af Amer) 100.9 ml/min BUN/Creatinine Ratio 9.2 L (10-20) Glucose 89 (70-99(Fasting)) mg/dl Calcium 8.9 (8.5-10.1) mg/dl Magnesium 2.0 (1.7-2.4) mg/dl Total Bilirubin 0.5 (0.2-1.0) mg/dl AST 12 L (13-39) U/L ALT 10 (7-52) U/L Alkaline Phosphatase 52 (34-104) U/L Troponin I High Sens 2.9 (0-14) pg/ml Total Protein 7.0 (6.0-8.3) gm/dl Albumin 4.5 (3.4-5.0) gm/dl Globulin 2.5 (2.5-4.0) gm/dl Albumin/Globulin Ratio 1.8 (0.9-2) SARS-CoV-2, RNA, NAAT Pending 03/25/22 Range/Units 02:40 WBC 11.11 H (4.8-10.8) K/uL RBC 4.88 (4.2-5.4) M/uL Hgb 13.3 (12.0-16.0) g/dL Hct 40.3 (37-47) % MCV 82.6 (80-100) fL MCH 27.3 (25-34) pg MCHC 33.0 (32-36) g/dL RDW Std Deviation 45.2 (36.4-46.3) fL RDW Coeff of Pierre 14.9 H (11.5-14.5) % Plt Count 316 (130-400) K/uL MPV 10.6 H (7.4-10.4) fL Immature Gran % (Auto) 0.3 % Neut % (Auto) 53.2 % Lymph % (Auto) 35.8 % Kendall % (Auto) 8.2 % Eos % (Auto) 2.0 % Baso % (Auto) 0.5 % Neut # (Auto) 5.91 (1.4-6.5) K/uL Lymph # (Auto) 3.98 H (1.2-3.4) K/uL Kendall # (Auto) 0.91 H (0.11-0.59) K/uL Eos # (Auto) 0.22 (0-0.5) K/uL Baso # (Auto) 0.06 (0-0.2) K/uL Immature Gran # (Auto) 0.03 H (0.00-0.02) K/uL PT (9.0-12.0) Seconds INR (0.9-1.1) APTT (21.0-31.0) Seconds PTT Ratio Sodium (136-145) mmol/L Potassium (3.5-5.1) mmol/L Chloride (98-107) mmol/L Carbon Dioxide (21-32) mmol/L Anion Gap (3-11) BUN (6-23) mg/dl Creatinine (0.6-1.2) mg/dl Est Cr Clr Drug Dosing ml/min Est GFR ( Amer) ml/min Est GFR (Non-Af Amer) ml/min BUN/Creatinine Ratio (10-20) Glucose (70-99(Fasting)) mg/dl Calcium (8.5-10.1) mg/dl Magnesium (1.7-2.4) mg/dl Total Bilirubin (0.2-1.0) mg/dl AST (13-39) U/L ALT (7-52) U/L Alkaline Phosphatase (34-104) U/L Troponin I High Sens (0-14) pg/ml Total Protein (6.0-8.3) gm/dl Albumin (3.4-5.0) gm/dl Globulin (2.5-4.0) gm/dl Albumin/Globulin Ratio (0.9-2) SARS-CoV-2, RNA, NAAT Diagnostic Findings [facility] Patient: BIRDIE ROTHMAN (Female) : 87 Status: ER Date: 03/25/22 03:12 Room #: History: RIGHT ARM WEAKNESS AND FACIAL NUMBNESS AND TINGLING Slices: [phone] Priors: Tech: Eliot Martinez @ [phone] Exams: CTA NECK C Contrast: IV Amt: 118 ML OPTIRAY 320 Accession Numbers: [id number] Referring Physician: MARGY YANEZ Preliminary Findings Only See Final Report For Complete Findings CTA NECK: The aortic arch she is nondilated. There is no aneurysm or dissection. The carotid bifurcations are widely patent bilaterally. No atherosclerotic plaque or stenosis. The internal carotid arteries are mildly tortuous but widely patent bilaterally. The vertebral arteries are widely patent bilaterally with mild tortuosity. No stenosis or dissection. Radiologist: Graeme Moseley MD Study ready at 03:21 and initial results transmitted at 03:29 Communications: Clear Time Type Notes 03/25/22 03:32 Call Doctor Regarding Ashly lopez, called Dr. Yanez on 03/25 03:32 (- 04:00) *This report constitutes a preliminary interpretation only. Non-acute findings felt to be unrelated to the clinical presentation may not be discussed in this report. The study will be interpreted and a final report will be generated by the local Radiologist the following shift. To reach the [facility] radiology department call [phone]. If a discrepancy is found between the preliminary and final interpretations of this study, please notify us via our Client Portal at [email or web address], under [email or web address]. You can also fax this report with a description of the discrepancy, or include the final report, to our daytime fax number [phone]. If faxing, please indicate the severity of discrepancy using one of the following categories: [ ] 1 - Agree/Informational [ ] 2 - Unlikely to Affect Management [ ] 3 - Possible Eventual Change of Management [ ] 4 - Probable Immediate Change of Management For all other patient related information, please fax us at [phone]. [id number] [facility] Patient: BIRDIE ROTHMAN (Female) : 87 Status: ER Date: 03/25/22 03:11 Room #: History: RIGHT ARM WEAKNESS AND FACIAL NUMBNESS AND TINGLING Slices: 481 Priors: Tech: Eliot Martinez @ [phone] Exams: CTA HEAD Contrast: IV Amt: 118 ML OPTIRAY 320 Accession Numbers: [id number] Referring Physician: MARGY YANEZ Preliminary Findings Only See Final Report For Complete Findings CTA HEAD: Normal CT angiogram of the brain. Radiologist: Graeme Moseley MD Study ready at 03:21 and initial results transmitted at 03:28 Communications: Clear Time Type Notes 03/25/22 03:32 Call Doctor Regarding Ashly lopez, called Dr. Yanez on 03/25 03:32 (- 04:00) *This report constitutes a preliminary interpretation only. Non-acute findings felt to be unrelated to the clinical presentation may not be discussed in this report. The study will be interpreted and a final report will be generated by the local Radiologist the following shift. To reach the [facility] radiology department call [phone]. If a discrepancy is found between the preliminary and final interpretations of this study, please notify us via our Client Portal at [email or web address], under [email or web address]. You can also fax this report with a description of the discrepancy, or include the final report, to our daytime fax number [phone]. If faxing, please indicate the severity of discrepancy using one of the following categories: [ ] 1 - Agree/Informational [ ] 2 - Unlikely to Affect Management [ ] 3 - Possible Eventual Change of Management [ ] 4 - Probable Immediate Change of Management For all other patient related information, please fax us at [phone]. [id number] [facility] Patient: BIRDIE ROTHMAN (Female) : 87 Status: ER Date: 03/25/22 03:10 Room #: History: RIGHT ARM WEAKNESS AND FACIAL NUMBNESS AND TINGLING Slices: 67 Priors: Tech: Richie Martinezie @ [phone] Exams: CT HEAD Contrast: Accession Numbers: [id number] Referring Physician: MARGY YANEZ Preliminary Findings Only See Final Report For Complete Findings CT HEAD: Comparison to April 10, 2020. Normal head CT. Radiologist: Graeme Moseley MD Study ready at 03:21 and initial results transmitted at 03:26 Communications: Clear Time Type Notes 03/25/22 03:32 Call Doctor Maryan lopez called Dr. Yanez on 03/25 03:32 (- 04:00) *This report constitutes a preliminary interpretation only. Non-acute findings felt to be unrelated to the clinical presentation may not be discussed in this report. The study will be interpreted and a final report will be generated by the local Radiologist the following shift. To reach the [facility] radiology department call [phone]. If a discrepancy is found between the preliminary and final interpretations of this study, please notify us via our Client Portal at [email or web address], under [email or web address]. You can also fax this report with a description of the discrepancy, or include the final report, to our daytime fax number [phone]. If faxing, please indicate the severity of discrepancy using one of the following categories: [ ] 1 - Agree/Informational [ ] 2 - Unlikely to Affect Management [ ] 3 - Possible Eventual Change of Management [ ] 4 - Probable Immediate Change of Management For all other patient related information, please fax us at [phone]. [id number] Supervising Physician Co-Signing Physician Notes Attending addendum: I have physically seen this patient, have supervised the medical residents activities, and agree with the H&P unless as otherwise noted. Assessment and Plan: Strokelike symptoms- Right upper extremity/right lower extremity weakness and tingling History of previous CVA and right-sided weakness History of lupus anticoagulant CT head and CTA head neck with no acute findings Noted tPA candidate due to being on warfarin Order MRI brain without contrast Stroke without tPA order set Consult PT/OT/speech/neurology The patient will be admitted to telemetry for serial cardiac enzymes, serial EKG's, cardiac rhythm monitoring and a 2-D echocardiogram with Dopplers. Permissive hypertension Remaining orders and notations as noted Resident Activity Tracking Resident Involvement: Resident Care Provided Care Provided: Adult Hospital Medicine
[2022-03-25] MEDS ORDERED: ASPIRIN 81 MG CHEW PO STA (05:53)
[2022-03-25] MEDS ORDERED: ACETAMINOPHEN 325 MG TAB PO PRN (06:45)
[2022-03-25] MEDS ORDERED: ALPRAZolam 0.5 MG TABLET PO PRN (06:45)
[2022-03-25] MEDS ORDERED: PHARMACIST DISCHARGE MED REC CONSULT PRN (06:45)
[2022-03-25] MEDS ORDERED: POLYETHYLENE (MIRALAX) 17 GM PACK PO PRN (06:45)
[2022-03-25] MEDS ORDERED: ALUMINUM/MAGNESIUM SUSP 30 ML UDC PO PRN (06:45)
[2022-03-25] MEDS ORDERED: MAGNESIUM HYDROXIDE SUSP 30 ML UDC PO PRN (06:45)
[2022-03-25] MEDS ORDERED: ONDANSETRON INJ 2 MG/ML 2 ML VIAL IV PRN (06:45)
[2022-03-25] MEDS ORDERED: CLOPIDOGREL BISULFATE 300 MG TAB PO ONE (07:15)
[2022-03-25] MEDS ORDERED: NSS + 20MEQ KCL 20 MEQ/1,000 ML BAG IV SCH (07:15)
--- NOTE | 2022-03-25 07:17 | CT Scan Report ---
NONCONTRAST HEAD CT, HEAD & NECK CTA HISTORY: Right arm weakness with facial numbness. Stroke Like Symptoms TECHNIQUE: Multiaxial CT images of the head were performed both before and after the intravenous admi nistration of contrast to evaluate the major cerebral vessels. Multiaxial CT images of the neck were also performed following the intravenous administration of contrast to evaluate the major cervical ve ssels. Maximum intensity projection images were also obtained. A dose lowering technique was utilized adhering to the principles of ALARA. COMPARISON: Head and neck CTA 06/27/2021. FINDINGS: NONCONTRAST HEAD CT: Old small left cerebellar infarcts are again noted. There is no mass, hematoma, midline shift, acute infarct identified. The paranasal sinuses and mastoid air cells are clear. The c alvarium and skull base are intact. HEAD CTA: Visualized intracranial internal carotid arteries, distal vertebral arteries, and basilar a rtery are widely patent. There is no significant stenosis, occlusion, or aneurysm seen within the [place] ateral ACAs, MCAs, or underwriting intern. 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 This is best seen on image 7. The major dural venous sinuses are patent. The aortic arch and proximal great vessels are widely patent. There is no significant stenosis, occ lusion, or dissection identified within the bilateral common carotid, internal carotid, or vertebral arteries. 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 IMPRESSION: 1. No significant stenosis, occlusion, or aneurysm within the [place]. 2. No significant stenosis, occlusion, or dissection identified within the carotid or vertebral arter ies. 3. 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 ACT 112: Negative or not required by law. Electronically signed by: Tito Enriquez M.D. 03/25/2022 7:16 AM
--- NOTE | 2022-03-25 07:17 | CT Scan Report ---
NONCONTRAST HEAD CT, HEAD & NECK CTA HISTORY: Right arm weakness with facial numbness. Stroke Like Symptoms TECHNIQUE: Multiaxial CT images of the head were performed both before and after the intravenous admi nistration of contrast to evaluate the major cerebral vessels. Multiaxial CT images of the neck were also performed following the intravenous administration of contrast to evaluate the major cervical ve ssels. Maximum intensity projection images were also obtained. A dose lowering technique was utilized adhering to the principles of ALARA. COMPARISON: Head and neck CTA 06/27/2021. FINDINGS: NONCONTRAST HEAD CT: Old small left cerebellar infarcts are again noted. There is no mass, hematoma, midline shift, acute infarct identified. The paranasal sinuses and mastoid air cells are clear. The c alvarium and skull base are intact. HEAD CTA: Visualized intracranial internal carotid arteries, distal vertebral arteries, and basilar a rtery are widely patent. There is no significant stenosis, occlusion, or aneurysm seen within the [place] ateral ACAs, MCAs, or boxing and pressing supervisor. 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 This is best seen on image 7. The major dural venous sinuses are patent. The aortic arch and proximal great vessels are widely patent. There is no significant stenosis, occ lusion, or dissection identified within the bilateral common carotid, internal carotid, or vertebral arteries. 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 IMPRESSION: 1. No significant stenosis, occlusion, or aneurysm within the [place]. 2. No significant stenosis, occlusion, or dissection identified within the carotid or vertebral arter ies. 3. 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 ACT 112: Negative or not required by law. Electronically signed by: Tito Enriquez M.D. 03/25/2022 7:16 AM
--- NOTE | 2022-03-25 07:17 | CT Scan Report ---
NONCONTRAST HEAD CT, HEAD & NECK CTA HISTORY: Right arm weakness with facial numbness. Stroke Like Symptoms TECHNIQUE: Multiaxial CT images of the head were performed both before and after the intravenous admi nistration of contrast to evaluate the major cerebral vessels. Multiaxial CT images of the neck were also performed following the intravenous administration of contrast to evaluate the major cervical ve ssels. Maximum intensity projection images were also obtained. A dose lowering technique was utilized adhering to the principles of ALARA. COMPARISON: Head and neck CTA 06/27/2021. FINDINGS: NONCONTRAST HEAD CT: Old small left cerebellar infarcts are again noted. There is no mass, hematoma, midline shift, acute infarct identified. The paranasal sinuses and mastoid air cells are clear. The c alvarium and skull base are intact. HEAD CTA: Visualized intracranial internal carotid arteries, distal vertebral arteries, and basilar a rtery are widely patent. There is no significant stenosis, occlusion, or aneurysm seen within the [place] ateral ACAs, MCAs, or drywall finishing foreman. 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 This is best seen on image 7. The major dural venous sinuses are patent. The aortic arch and proximal great vessels are widely patent. There is no significant stenosis, occ lusion, or dissection identified within the bilateral common carotid, internal carotid, or vertebral arteries. 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 IMPRESSION: 1. No significant stenosis, occlusion, or aneurysm within the [place]. 2. No significant stenosis, occlusion, or dissection identified within the carotid or vertebral arter ies. 3. 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 ACT 112: Negative or not required by law. Electronically signed by: Tito Enriquez M.D. 03/25/2022 7:16 AM
[2022-03-25] MEDS ORDERED: LORazepam 2 MG/1 ML VIAL IV ONE (07:45)
[2022-03-25 07:52] LABS: Estimated Average Glucose 120 mg/dl; Hemoglobin A1C 5.8 % (4.5-5.6)
[2022-03-25] MEDS ORDERED: ALPRAZolam 0.5 MG TABLET PO STA (07:55)
[2022-03-25 07:56] LABS: C Reactive Protein < 0.50 mg/dl (0-0.5); Cholesterol 100 mg/dl (0-200); HDL Cholesterol 33 mg/dl; LDL Cholesterol Calculated 54 mg/dl; Triglycerides 67 mg/dl (0-150); VLDL Cholesterol 13 mg/dl (0-30)
--- NOTE | 2022-03-25 08:55 | Magnetic Resonance Report ---
Brain MRI WITHOUT CONTRAST HISTORY: Right-sided weakness and right facial droop. stroke-like symptoms TECHNIQUE: Multiplanar multisequence MRI of the brain was performed without the use of contrast. COMPARISON STUDY: Head CT 03/25/2022. FINDINGS: There are no areas of restricted diffusion to suggest acute infarction. The midline structu res are intact. Small retention cyst within the right maxillary sinus. The remaining paranasal sinuse s are clear. The orbits are unremarkable. A few old small left cerebellar infarcts remain unchanged. Expected mild gliosis adjacent to the old left cerebellar infarcts. The mastoid air cells are clear. The ventricles and sulci are within normal limits for age. There is no mass, hematoma, midline shift. The major vascular flow-voids at the skull base are well maintained. IMPRESSION: No significant change compared to the prior study. No acute intracranial abnormality. ACT 112: Negative or not required by law. Electronically signed by: Tito Enriquez M.D. 03/25/2022 8:52 AM
[2022-03-25] MEDS ORDERED: ATORVASTATIN 40 MG TAB PO SCH (09:00)
[2022-03-25] MEDS ORDERED: FLUoxetine HCL 20 MG CAP PO SCH (09:00)
[2022-03-25] MEDS ORDERED: LOSARTAN/HCTZ 50/12.5MG TAB PO SCH ×2 (09:00)
[2022-03-25] MEDS ORDERED: amLODIPine BESYLATE 5 MG TAB PO SCH ×2 (09:00)
[2022-03-25] MEDS ORDERED: AMITRIPTYLINE HCL 25 MG TAB PO SCH (09:00)
[2022-03-25] MEDS ORDERED: METOPROLOL SUCC 25MG EXT REL TAB PO SCH ×2 (09:00)
[2022-03-25] MEDS ORDERED: ALPRAZolam 0.5 MG TABLET ONE (09:06)
--- NOTE | 2022-03-25 09:34 | Neurology Consultation ---
Date of Consultation March 25, 2022 Assessment & Plan (1) Right sided numbness: (2) Acute ischemic vertebrobasilar artery cerebellar stroke: (3) Lupus anticoagulant disorder: (4) Hemiparesis affecting right side as late effect of cerebrovascular accident: (5) Migraine: this is a complicated patient neurologically for many reasons. She has suffered, and an early age, multiple small left cerebellar hemispheric strokes in 2018 secondary to a vertebral dissection. This resulted in chronic right william paresis and ataxia. She had been stable She is acutely had some right william numbness with some increased weakness earlier this morning. This is resolved an MRI of the brain showed no acute stroke. Therefore, she likely had a TIA or vasospasm. She does have a history of migraines and other headaches but she has no headache before, during, or after this event today. 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 She would like to get off this if possible. The patient's headaches were under control until she stopped gabapentin for other side effect reasons 2 weeks ago. Now she is having increase in headaches which seem more of a non migrainous nature. I do not like to combination of amitriptyline and fluoxetine as that puts her at risk for serotonin syndrome. She does not fit a classic picture for acute serotonin syndrome at this time. Recommendations: 1. Consider hematology consult to answer the question of whether she needs to stay on Coumadin or not. There is no neurologic reason to stay on anticoagulation at this time. 2. consider clopidogrel 75 milligrams instead of aspirin. 3. given her low total cholesterol I would not increase her statin at this time. it can remain the same. 4. awaiting echocardiogram results 5. consider lowering either amitriptyline or fluoxetine so she is less at risk for serotonin syndrome. 6. consider other medication for headache but we will do this as an outpatient. 7. Follow up in Neurology in 1-2 weeks with a neurology PA and Dr. Mcclendon. Overall, I spend a total of 120 minutes with this case including review of records, review the MRI films, direct evaluation the patient bedside, and discu ssion the case with the patient and RN at bedside, and Dr. Hernandez including differential diagnosis and treatment options. History of Present Illness Reason for Consultation: Patient is a 37-year-old, who I was asked to see at the request of Yolis Ceja, for neurologic consultation regarding new onset symptoms in patient with a previous stroke Requesting Physician: Dr. Ceja Attending Physician: Osman Hernandez DO History of Present Illness I 1st saw this patient in September of 2018, when she had multiple, small, acute, inferior left cerebellar hemispheric infarcts, likely secondary to vertebral artery dissection. 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 She was stable with some right-sided ataxia and weakness on aspirin and Plavix. Because of some worsening symptoms she was transferred to [facility]. After this and hematology consultation she was discharged on aspirin and Coumadin. She has remained on these ever since. there was a positive lupus anticoagulant, mesenteric artery thrombosis history, but no specific antiphospholipid antibody syndrome. Dr. Bowens, load haul dump operator, recommended long-term anticoagulation with Coumadin. Patient follows with Dr. Mcclendon as an outpatient in Neurology Clinic. He last saw her on December 03, 2021 and she was quite stable with her right-sided symptoms. Most recent CT angiography was in June of 2021 and showed no change in the small aneurysms vascular irregularities as. Patient does have a history of hypertension no heart disease or diabetes. She has a history of migraines and other headaches. She has tried and failed multiple medications to prevent and treat headaches but gabapentin 600 milligrams 3 times a day was useful. About 2 weeks ago, she discontinued gabapentin because of the fatigue it was giving her. She almost never had headaches on this medication. Since stopping the gabapentin she has had a headache almost every day. These consist of bioccipital throbbing pains without nausea, vomiting, photophobia, or phonophobia. 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 She continues to take amitriptyline 75 milligrams in the evening plus fluoxetine 60 milligrams each day. Although she she is at risk for serotonin syndrome with this combination of medication, she does not have any agitation/restlessness, confusion, rapid heart rate, muscle twitching, rigidity, or insomnia. The patient went to bed at 9 o'clock p.m. feeling her usual state on March 24. She woke up around 0200 feeling significant numbness and tingling on her whole right side including face arm and leg (completely) and even the right trunk. The right arm and leg were a bit heavier and weaker than usual. She did not have pain or headache. There was no speech problem, vision issue, or confusion. She arrived to the emergency room at 03:01 with a temperature of 36.6, pulse 105, respiratory rate 20, blood pressure 125/82, and O2 saturation 100 percent. Neurologic examination was described as unremarkable / nonfocal. CT scan of the head Showed no acute changes. CT angiography of the head and neck revealed nothing new compared to the previous CT angiography of June 2021. laboratory studies revealed a white count of 11 with a hemoglobin of 13 hematocrit of 43. INR was 1.7 and Chem profile was unremarkable. Hemoglobin A1c was 5.8, TSH 2.0, triglycerides 67, total cholesterol 100. She is on atorvastatin 40 milligrams a day. MRI of the brain showed no acute stroke and showed no significant old small vessel ischemic disease except for the old left cerebellar strokes. I reviewed these films with the patient. This morning she feels very close to baseline with near resolution of the numbness and tingling everywhere on the right side and improvement the strength of the arm greater than leg. She still has a little bit of residual weakness of leg more than baseline. Allergies Allergy/AdvReac Type Severity Reaction Status Date / Time No Known Allergies Allergy Verified 03/25/22 03:09 Home Medications Medication Instructions Recorded Confirmed Type atorvastatin 40 mg tablet 40 mg PO PM 10/08/18 03/25/22 History alprazolam 0.5 mg tablet 0.5 mg PO TID PRN tab 08/31/19 03/25/22 History fluoxetine 60 mg tablet 60 mg PO DAILY 05/03/20 03/25/22 History amlodipine 10 mg tablet 10 mg PO DAILY 05/17/20 03/25/22 History gabapentin 600 mg tablet 600 mg PO TID #90 tab 01/13/22 03/25/22 Rx amitriptyline 75 mg tablet 75 mg PO DAILY 30 Days #30 tab 02/23/22 03/25/22 Rx aspirin 81 mg tablet,delayed 81 mg PO DAILY 03/25/22 03/25/22 History release losartan 100 1 tab PO DAILY 03/25/22 03/25/22 History mg-hydrochlorothiazide 25 mg tablet metoprolol succinate 25 mg 25 mg PO DAILY 03/25/22 03/25/22 History tablet,extended release 24 hr warfarin 5 mg tablet See Rx Instructions .ROUTE .COMPLEX 03/25/22 03/25/22 History Patient History Medical History Acute ischemic vertebrobasilar artery cerebellar stroke Breast cancer For clarification, she had atypical ductal hyperplasia of the breast and did NOT ever have breast cancer Dissection of mesenteric artery Dissection, 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 HTN (hypertension) Mesenteric artery stenosis Migraine Paresthesia Valvular heart disease Surgical History H/O tubal ligation H/O: hysterectomy Vaginal, cystocele and apical vault suspension [facility] [place] 01/2022 Family History Mother Hypertension Father Hypertension Social History (Updated 03/25/22 @ 09:33 by Afshin Martinez MD) Smoking Status: Never smoker Second Hand Exposure: No; Hx Alcohol Use: No Hx Substance Use: No Preferred Language: Uzbek Communication Ability: Effective Visual Impairment: No Limitations Hearing Ability: Normal Micromatic Hone Operator Required: No Beliefs That Will Affect Care: None marital status: Current Living Situation: Family current occupational status: employed and disabled current occupation: [employer] from home, 20 hours per week, Feels Safe at Home: Yes Safety Concerns: Feels Safe At This Time Assistive Devices: Cane and Walker Review of Systems Constitutional: + fatigue; no fever and no weakness Eyes: no diplopia, no eye pain and no worsening vision Ear, Nose, Mouth, Throat: no ear pain, no tinnitus, no hearing loss, no dizziness, no snoring, no hoarseness and no dysphagia Respiratory: no cough and no dyspnea Cardiovascular: no chest pain, no palpitations and no lightheadedness Gastrointestinal: no abdominal pain, no nausea and no vomiting Genitourinary: no dysuria, no urinary frequency and no urinary incontinence Musculoskeletal: + neck pain; no back pain, no radicular pain, no joint pain and no myalgia Integumentary: no rash and no lesions Neurologic: + gait abnormality and + localized weakness; no generalized weakness, no tingling, no numbness, no tremor(s), no abnormal movements, no headache(s), no abnormal speech, no confusion and no memory loss Psychiatric: no depression, no irritability, no anxiety, no difficulty concentrating, no confusion and no hallucinations Endocrine: no fatigue and no flushing Hematologic / Lymphatic: no easy bleeding and no easy bruising Allergy / Immunological: no urticaria and no problem reported Exam (Neuro) Physical Exam: The patient is right-handed but has learned to use her left hand frequent The patient is awake, alert, and attentive. Speech is normal without any aphasia or dysarthria. The patient can name objects, repeat phrases, and has normal spontaneous speech. Mentation and thought processes are intact, with orientation to person, place and time, and normal fund of knowledge. Attention and concentration are normal. Mood and affect are normal and appropriate. General appearance and grooming are normal. Short and long-term memory are intact. The discs are sharp with positive venous pulsations bilaterally. There are no exudates, hemorrhages, or blood vessel changes seen. Pupils are 4 mm bilaterally and reactive to light. Extraocular eye muscles are intact without nystagmus. Visual acuity and visual santos seem normal grossly to confrontation. There are no deficits to sensation in the face in all 3 distributions of the fifth cranial nerve bilaterally. Corneal reflexes are positive bilaterally. Facial strength and symmetry was normal bilaterally. Hearing seems normal bilaterally. Palate moves well without asymmetry. There is normal sternocleido mastoid and trapezius (shoulder shrug) strength bilaterally. Tongue is midline with good strength bilaterally. Neck has a full range of motion without discomfort. There are no cervical bruits bilaterally. There are no cranial or ocular bruits. Heart is without murmur. There is a regular rhythm and rate. Cervical, thoracic, and lumbar spine are nontender to palpation. Gait is narrow based but she limps favoring the right leg. The right foot turns in when she walks. With outstretched arms there is no actual drift but she is weak at the right shoulder so the right arm falls.. There are no resting, postural, or action tremors. There is no ataxia with finger to nose testing , but the right upper extremity is more dysmetric than the left. There is mild decreased facility in the right hand compared to the left which is normal. There is some mild dysmetria with [id number] testing on the right compared to the left which is normal. Motor strength is 5/5 diffusely in the left upper extremity including deltoids, biceps, triceps, brachioradialis, wrist flexors and extensors, professional shopper, and intrinsic hand muscles. The right upper extremity is 4/5 diffusely both proximally and distally. Motor strength is 5/5 diffusely in the Left lower extremity including hip flexors, quadriceps, hamstrings, gastrocnemius, tibialis anterior, tibialis posterior, and Peroneii muscles. The right lower extremity is 4/5 diffusely both proximally and distally. Toe extensors are normal and there is good bulk in the extensor digitorum brevis muscles bilaterally. The limbs have good tone without rigidity or spasticity. There is no atrophy noted in the muscles. Muscle bulk is normal, there is no tenderness to palpation, no myotonia to percussion, and no fasciculations seen. Sensory examination is intact to touch and pin throughout all 4 limbs diffusely. Reflexes are 3/4 in the biceps, triceps, brachioradialis, quadriceps, and Achilles tendons bilaterally. There is no clonus bilaterally. Toes are downgoing with plantar stimulation bilaterally. Peripheral pulses are present and of normal quality distally in all 4 limbs. There is no peripheral edema noted in the limbs. Results & Data ([facility]) Vital Signs (Past 12 Hours) Vital Signs Temp Pulse Pulse Resp BP BP Pulse Ox 03/25/22 06:37 36.8 C 78 16 124/83 99 03/25/22 06:00 81 15 108/78 93 03/25/22 05:00 78 13 113/75 94 03/25/22 04:30 77 16 96 03/25/22 04:12 81 15 100 03/25/22 04:05 91 H 22 122/81 96 03/25/22 03:50 93 H 16 97 03/25/22 03:45 90 23 101/73 99 03/25/22 03:40 98 H 19 98 03/25/22 03:30 99 H 100 H 18 131/79 131/79 97 03/25/22 03:20 97 H 25 H 96 03/25/22 03:16 102 H 25 H 117/87 97 03/25/22 03:01 36.6 C 105 H 20 125/82 100 PG Care Time/CCT Total # of Minutes Spent Total Time Spent with Patient: Total time spent is greater than 50% in coordination of care (as documented) at patient's floor/unit and/or counseling patient: Coding Level of Care Code 48818 Inpt Consult Level 5 Diagnoses Right sided numbness R20.0 Acute ischemic vertebrobasilar artery cerebellar stroke I63.29 Lupus anticoagulant disorder D68.62 Hemiparesis affecting right side as late effect of cerebrovascular accident I69.351 Migraine G43.909 Time Spent (min) 120 Comment Add modifiers as able
[2022-03-25] MEDS ORDERED: STROKE PATIENT DISCHARGE STA (12:55)
--- NOTE | 2022-03-25 13:32 | Pharmacy Report ---
Pharmacist Stroke Counseling - Date of Service March 25, 2022 - Scope: Pharmacy has been consulted to provide medication discharge counseling for this patient admitted with possible transient ischemic attack as per the Pharmacist Discharge Counseling for Stroke Patients Protocol. - Medications on Discharge: Home Medications Medication Instructions Recorded Confirmed atorvastatin 40 mg tablet 40 mg PO PM 10/08/18 03/25/22 alprazolam 0.5 mg tablet 0.5 mg PO TID PRN tab 08/31/19 03/25/22 fluoxetine 60 mg tablet 60 mg PO DAILY 05/03/20 03/25/22 amlodipine 10 mg tablet 10 mg PO DAILY 05/17/20 03/25/22 losartan 100 1 tab PO DAILY 03/25/22 03/25/22 mg-hydrochlorothiazide 25 mg tablet metoprolol succinate 25 mg 25 mg PO DAILY 03/25/22 03/25/22 tablet,extended release 24 hr warfarin 5 mg tablet See Rx Instructions .ROUTE .COMPLEX 03/25/22 03/25/22 New Rx's Medication Instructions Recorded gabapentin 600 mg tablet 600 mg PO TID #90 tab 01/13/22 amitriptyline 75 mg tablet 75 mg PO DAILY 30 Days #30 tab 02/23/22 clopidogrel 75 mg tablet (Plavix) 75 mg PO DAILY #30 tab 03/25/22 - Action: The above medications, specifically ones for stroke treatment/prophylaxis, have been reviewed in detail with the patient and/or patient account development representative(s) prior to discharge. This includes indication, common adverse reactions, drug interactions, and medication administration. Medication counseling has been employed using the teach-back method to ensure understanding. - Outcome: The patient and/or patient account development representative(s) have demonstrated understanding of the medications. Patient is familiar with antiplatelets and anticoagulants as she was on warfarin and aspirin prior to admission Reinforced that patient is to STOP aspirin and start Plavix. She reports taking Plavix in the past and tolerating it well. Reminded her of increased risk of bleeding with combination of warfarin + antiplatelet, reviewed s/s of bleeding and instructed her to notify practitioner that she takes these medications if she is scheduled for any procedures. Thank you for allowing pharmacy to be involved in the care of this patient. Please call [phone] with any additional questions
--- NOTE | 2022-03-25 14:53 | XCELERA ---
[id number]
[2022-03-25] MEDS ORDERED: WARFARIN SOD 5 MG TAB PO SCH ×2 (16:00)
--- NOTE | 2022-03-25 16:30 | Discharge Summary ---
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 Patient reports that yesterday morning around 11:00am she had an episode of right arm/hand weakness/tingling described as "falling asleep." She was able to "shake out" the arm which resolved the symptoms. Patient had recurrent symptoms with same presentation in the right arm/hand around 7:00pm which she again was able to resolve. Patient went to bed at 9:00pm and awoke at 2:00am with significantly increased right arm and leg weakness and tingling. She also had right facial numbness/tingling. Patient denies right facial droop but per EMS report patient did have a right facial droop. Also denies speech difficulty or vision changes. + nausea but no vomiting. + headache. Patient was concerned as these symptoms were reminiscent of her hx of stroke, so she called EMS for transport to the hospital. At present time, patient reports slight improvement in the right hand weakness but no improvement in right leg weakness. She denies recent illness and states that prior to symptoms today she was in her usual state of health. Specifically, patient denies fever, chills, congestion, rhinorrhea, sore throat, cough, sinus pain, SOB, CP, abd pain, diarrhea, constipation, or urinary symptoms. Patient takes gabapentin irregularly for hx of headaches and last took a dose of gabapentin a few days ago. She is currently on laxatives to prevent constipation/straining for BM s/p surgical repair of pelvic prolapse and partial hysterectomy (sparring ovaries and fallopian tubes) 7 weeks ago. She has had no other changes in her medications. Patient reports compliance with her medications including warfarin, ASA, amlodipine, losartan-HCTZ, and metoprolol. Patient is a former smoker (vape) but quit approximately 3 years ago. Former alcohol use but quit a couple years ago. Works for [employer] at [employer]. Admission Exam Per Admitting Provider GENERAL: No acute distress. Well developed and well nourished. Vital signs reviewed as above. A/O x3. EYES: PERRLA. EOMI. Anicteric sclerae. HENT: Moist mucous membranes. No pharyngeal erythema or exudates. RESPIRATORY: Clear to auscultation bilaterally. No wheezing, rales, or rhonchi. CARDIOVASCULAR: Regular rate and rhythm. No murmurs. ABDOMEN: Soft, non-tender and non-distended. Normal bowel sounds. EXTREMITIES: No edema. Non-tender. SKIN: Warm, dry. No rashes or lesions. NEUROLOGIC: Alert. A/O x3. CN II-XII grossly in tact. Normal speech. No involuntary movements. Abnormal sensation to RUE and RLE compared to LUE and LLE, respectively, described as "tingling" to light touch. 2+ bilateral patellar reflexes. 2/5 strength to RLE. 3/5 strength to RUE. 5/5 strength in LUE and LLE. PSYCHIATRIC: Cooperative. Appropriate mood and affect. Principal Diagnosis R sided numbness/weakness - likely vasospasm Discharge Exam Constitutional WD/WN, vitals as above no acute distress Eyes + anicteric sclerae ENMT external ear and nose normal, oropharynx normal Neck trachea midline Respiratory normal respiratory effort, lungs clear to auscultation Cardiovascular RRR, no murmur, no edema Heart Sounds: normal S1 and normal S2 Extremities: no pedal edema Gastrointestinal (Abdomen) normal bowel sounds, soft, nontender, no hepatosplenomegaly Musculoskeletal Head/Neck/Chest: normocephalic and head atraumatic Extremities: + abnormal strength (4/5 in R UE and LE) Skin no rashes, warm and dry Neurologic CN's II-XI intact bilaterally and moves all extremities Speech / Cognition: normal speech Psychiatric A+Ox3, euthymic affect Discharge Data Allergies Allergy/AdvReac Type Severity Reaction Status Date / Time No Known Allergies Allergy Verified 03/25/22 03:09 Consultations 03/25/22 03:54 ED Decision to Admit Stat 03/25/22 06:45 Consult Neurology Routine Ordered Studies 03/25/22 02:51 CT angio head w con Urgent CT angio neck with con Urgent CT head/brain wo con Urgent 03/25/22 06:45 MR brain wo con Routine Hospital Course (1) Stroke-like symptom: Birdie is a 37 yo female with PMHx significant for 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 She also has a history of lupus anticoagulant syndrome and mesenteric artery stenosis for which she is chronically anticoagulated on coumadin. She was admitted to [facility] for evaluation of right sided weakness. Stroke-like symptoms including RUE/RLE weakness/tingling - Given history of stroke and lupus anticoagulant syndrome a full stroke work up was performed - Telestroke was contacted who recommend against tPA given use of adjunct faculty for medical terminology anticoagulant, although she was given ASA 342mg and Plavix 300mg - Brain MRI showed no evidence of acute intracranial abnormality - CTA Neck and Head showed no significant stenosis, occlusion or aneurysm of the [place] or the carotid or vertebral arteries. 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 - Echo with bubble study returned normal - Neurology was consulted who felt as though symptoms were due to cerebral vasospasm vs. TIA. For this reason, her amlodipine dose was increased from 5mg to 10mg daily. - Her anti-platelet therapy was escalated from ASA to Plavix 75mg daily. - Given that she is at low risk for atherosclerotic disease, her lipitor dose was continued at 40mg daily (rather than maxed out at 80mg) - symptoms resolved by the time of discharge (2) HTN (hypertension): - continue home dose HCTZ-Losartan combo pill - home amlodipine dose was increased form 5 to 10mg daily (as above) Outpatient items to do: Monitor blood pressure in setting of increased anti- hypertensive regimen (3) Migraine: - after ischemic event was ruled out, migraine with motor aura was considered on the differential - however the headache that preceded symptoms was ultimatley not consistent with migrainous attack - she may continue amitriptyline 75mg daily for prevention - however concurrent use of prozac (hx of anxiety) does place her at increased risk of serotonin syndrome. Outpatient items to do: consider tapering off Prozac to reduce risk of serotonin syndrome (4) Prediabetes: - HbA1c returned at 5.8 - risk factor for vascular disease Outpatient items to do: Discuss Lifestyle modifications - repeat A1c in 3 months. 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 She expressed much frustration with this medication - a referral was placed for her to discuss the need for lifelong anticoagulation - as well as the specific agent with [facility] Hematology. Specifically, she desires consideration on transitioning to a DOAC. Total Time Total Time Spent Total Time Spent (In Minutes): <30 Discharge Plan Discharge Items Patient Disposition: Home - Self-Care Reason For Visit: STROKE EVAL Discharge Diagnosis: Transient ischemic attack Activity: Per Instructions section Non-emergency contact: Primary Care Provider and Neurologist Call non-emergency contact if: you have any medication questions and your symptoms worsen Follow-up/Referrals: Isreal Mcclendon MD [Physician] - Ashley Pitt MD [Primary Care Provider] - Diet: Regular Addtl Attending Provider Instructions: You were seen in the hospital due to concerns for having a stroke. While you are here you had a full evaluation for a stroke rule out. Your MRI did not show any new lesions that would be suggestive of a stroke at this time. By the time that we had seen you and had discussed your discharge, your symptoms had already been improving your strength was returning. Your symptoms were most likely due to something called a vasospasm that likely clamped down on a blood vessel that is supplying nutrients to a part of your brain that was controlling your right side of your body. These vasospasms are short-lived and only cause temporal lack of oxygen to the brain and function typically returns given time. To help prevent future vasospasm, we are going to increase your amlodipine from 5 to 10 mg as calcium channel blockers such as amlodipine can help prevent these. With doing this there is a risk that you may experience some lightheadedness with standing, if this were to happen contact your primary care provider to adjust your hypertension medications appropriately. Otherwise the question remains whether or not you need to be on warfarin due to your diagnosis of lupus anticoagulant. At this time we would prefer that you maintain usage of a blood thinner. However, there are likely other options that you can use, but we would like you to discuss this with roof fitter. Currently we are working with the nurse racing secretary and handicapper on your floor to establish an appointment to look into this further. Our neurologist who saw you also recommended that we change your aspirin to Plavix for better prophylactic pharmacotherapy for stroke prevention. Please begin Plavix 75mg daily and stop your daily baby aspirin. Some other concerns that we noticed included that you are on fluoxetine and amitriptyline. This combination of medications causes a high risk for something called serotonin syndrome which can be fatal. We do recommend at this time that you discuss this further with your primary care provider and have a risk benefits discussion and possibly wean off of the fluoxetine. Additionally your A1c, a measure of your sugars over the past 3 months, was 5.8 which is indicative of prediabetes. We feel that you should have a discussion with your primary care provider about care options regarding this diagnosis to prevent the onset of full-blown diabetes. Specifically, lifestyle modification such as adding more exercise to routine or modifying her diet to reduce the amount of carbohydrates that you intake. Some handouts will be provided at the end of this discharge instructions packet. It has been a pleasure to be a part of your care and we wish you the best of both her recovery and her health. Pending Studies at Discharge: No Stand-Alone Forms: Medications to Prevent Stroke, [facility], Smoking Cessation Medications and DC Order Prescriptions: New clopidogrel [Plavix] 75 mg tablet 75 mg PO DAILY Qty: 30 RF: 2 Continued amlodipine 10 mg tablet 10 mg PO DAILY RF: 0 gabapentin 600 mg tablet 600 mg PO TID Qty: 90 RF: 5 amitriptyline 75 mg tablet 75 mg PO DAILY 30 Days Qty: 30 RF: 5 alprazolam 0.5 mg tablet 0.5 mg PO TID PRN (Reason: Anxiety) RF: 0 fluoxetine 60 mg tablet 60 mg PO DAILY RF: 0 atorvastatin 40 mg Tablet 40 mg PO PM RF: 0 losartan-hydrochlorothiazide 100-25 mg tablet 1 tab PO DAILY RF: 0 warfarin 5 mg tablet See Rx Instructions .ROUTE .COMPLEX RF: 0 metoprolol succinate 25 mg tablet extended release 24 hr 25 mg PO DAILY RF: 0 Discontinued aspirin 81 mg Tablet,Delayed Release (Dr/Ec) 81 mg PO DAILY RF: 0 Discharge Orders: Discharge Order (Routine); Ordered 03/25/22 Ordered By: Naomie Thibodeaux/Other Patient Handouts: Prediabetes Admission Data Admit Date/Time: 03/25/22 05:53 Attending Provider: Osman Hernandez Admit Provider: Yolis Ceja Primary Care Provider: Ashley Pitt Other Providers: Pola Atkinson ; Afshin Martinez Other Interventions: Discharge Summary Assessment (RN) Last Done: 03/25/22 13:02 Supervising Physician Co-Signing Physician Notes I personally examined the patient and verified all [place] points of history and exam, discussed case, and agree with decision making with Dr Torres. Feeling better and very much wants to go home. Case discussed with neurology. Input greatly appreciated. Vitals noted, in general she is awake and alert pleasant no distress. HEENT normocephalic atraumatic mucous membranes moist. Breathing unlabored no accessory muscle use good effort. Skin shows no rashes no pallor or icterus. Neuro without focal deficits. Right-sided neurodeficitsno strokealmost certainly vasospastic (does have risk for embolicand INR is slightly lowbut with diffuse nature of neurodeficits, I doubt she would have had an embolic event without at least MRI findings of ischemia; does not really have overwhelming risk for atherosclerotic, and no reason for it to be large vessel thromboembolic). Given the high likelihood of vasospasmincrease amlodipine to 10 mg. Per neurology recommendationsswitch aspirin to Plavix. Stable for home. Lupus anticoagulantwith prior embolic eventsdiscussed with patient unfortunately she probably should be on lifelong anticoagulation, but as literature evolves, I am not sure but it may be possible that she could be transition to something easier such as a DOAC. Has not seen hematology in about 2 yearshave asked to facilitate hematology follow-up in this respect Stable for home, otherwise as above Resident Activity Tracking Resident Involvement: Resident Care Provided Care Provided: Adult Hospital Medicine
--- NOTE | 2022-03-25 16:39 | Billing Data ---
Date of Service March 25, 2022 Coding Level of Care Code D/C DAY MANAGEMENT <30 MINS
--- NOTE | 2022-03-26 02:55 | Billing Data ---
Date of Service March 26, 2022 Coding Level of Care Code 81501 Initial Inpt Care Lvl 3
--- NOTE | 2022-03-26 07:04 | Electrocardiogram Report ---
Test Reason : Blood Pressure : / mmHG Vent. Rate : 103 BPM Atrial Rate : 103 BPM P-R Int : 154 ms QRS Dur : 084 ms QT Int : 356 ms P-R-T Axes : 046 038 -49 degrees QTc Int : 466 ms Sinus tachycardia Abnormal ECG When compared with ECG of 10-APR-2020 14:39, T wave inversion now evident in Inferior leads Confirmed by Liban Patino ([id number]) on 03/26/2022 7:04:41 AM Referred By: REFERRED SELF Confirmed By:Liban Patino
[2022-03-26] MEDS ORDERED: ASPIRIN 81 MG ECTAB PO SCH (09:00)
[2022-03-29] MEDS ORDERED: WARFARIN SOD 2.5 MG TAB PO SCH (16:00)
== END 2022-03-25 13:39 | disposition home or self-care (01) | DRG 69 ==
LOC: ED 02:54 → SUATTDRO 05:53 → 2S 05:53

== ENCOUNTER 2023-04-27 22:39 | Observation (INO) ==
--- NOTE | 2023-04-27 22:46 | Emergency Department Note ---
History of Present Illness General Chief complaint: Neuro Symptoms/Deficit Stated complaint: NAUSEA, RIGHT SIDED WEAKNESS Time Seen by Provider: 04/27/23 22:45 History of Present Illness This 38-year-old female patient presents to the emergency department via ambulance for evaluation of nausea, dizziness, feeling like she is going to pass out, and right-sided weakness. She had similar symptoms on 04/25/23 in the middle of the night, but her right sided weakness at that time was not as bad as today. She called off work yesterday because she just felt very run down, weak, and achy. Has continued with the nausea and dizziness since the episode 2 days ago. Tonight around 7 pm she tried to go to bed to rest. Around 9:30 pm she woke up and felt worse. The right sided weakness got worse along with extreme nausea and dizziness. However, the right-sided weakness has started to improve since arriving in the emergency department. She just feels like something is not right. Frequently gets headaches on the top of her head, but no current headache. Her last "normal" was 3 pm on 04/24/23. 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 She had genetic testing with no cause found per patient. She is currently on Plavix and Xarelto. She had residual deficits of weakness on the right side requiring her to walk with a cane and use a leg brace. However, she states that the right-sided weakness over the past couple days is worse than her typical weakness. Denies chest pain, SOB, or abdominal pain. Denies any fevers or URI symptoms. Denies any urinary symptoms. Denies problems with her BMs. Home Medications Medication Instructions Recorded Confirmed Type atorvastatin 40 mg tablet 40 mg PO PM 10/08/18 04/27/23 History alprazolam 0.5 mg tablet 0.5 mg PO DAILY PRN Anxiety 08/31/19 04/27/23 History amlodipine 10 mg tablet 10 mg PO DAILY 05/17/20 04/27/23 History fluoxetine 60 mg tablet 60 mg PO QPM 08/11/22 04/27/23 History clopidogrel 75 mg tablet (Plavix) 75 mg PO QPM 04/27/23 04/27/23 History losartan 50 mg-hydrochlorothiazide 1 tab PO QAM 04/27/23 04/27/23 History 12.5 mg tablet rivaroxaban 20 mg tablet (Xarelto) 20 mg PO QPM 04/27/23 04/27/23 History Allergies Allergy/AdvReac Type Severity Reaction Status Date / Time prednisone Allergy Intermediate Unverified 08/11/22 09:22 Past Med/Surg History Medical History (Updated 04/28/23 @ 03:30 by Vicki Mitchell PA-C) Acute ischemic vertebrobasilar artery cerebellar stroke Atypical lobular 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, 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 HTN (hypertension) Hypertension Hypokalemia Ischemic stroke Mesenteric artery stenosis Migraine Migraine Mild sleep apnea Paresthesia Stroke-like symptom Syncope Valvular heart disease Surgical History H/O tubal ligation H/O: hysterectomy Vaginal, cystocele and apical vault suspension [facility] [place] 01/2022 Family History Mother Hypertension Father Hypertension Social History Smoking Status: Current every day smoker Tobacco Type: E-cigarettes / Vaping Second Hand Exposure: No; Do You Dip or Chew Tobacco: No; Hx Alcohol Use: No Hx Substance Use: No Preferred Language: Mongolian Communication Ability: Effective Visual Impairment: No Limitations Hearing Ability: Normal 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 Physical Exam Vital Signs Vital Signs - 24 hr 04/27/23 22:40 04/27/23 22:47 04/27/23 23:23 Temperature 36.8 C Temperature Source Oral Pulse Rate 82 81 Pulse Rate [Apical] 72 Pulse Rhythm Regular Pulse Strength Normal Respiratory Rate 18 17 Respiratory Effort / Characteristics Non-Labored Non-Labored Spontaneous Respiratory Depth Normal Normal Respiratory Pattern Regular Blood Pressure 117/83 Blood Pressure [Right Arm] 118/72 Blood Pressure Mean 94 Blood Pressure Mean [Right Arm] 87 Blood Pressure Position Sitting Blood Pressure Position [Right Arm] Lying Pulse Oximetry 94 97 Oxygen Delivery Method Room Air Room Air Sepsis Recent Fever Within 48 Hours No Sepsis New/Unexplained Change in Mental Status No Sepsis Action Taken by Nursing No Action Required 04/28/23 01:56 04/28/23 02:46 Temperature Temperature Source Pulse Rate Pulse Rate [Apical] 65 Pulse Rhythm Pulse Strength Respiratory Rate 17 Respiratory Effort / Characteristics Non-Labored Spontaneous Respiratory Depth Normal Respiratory Pattern Blood Pressure Blood Pressure [Right Arm] 102/66 Blood Pressure Mean Blood Pressure Mean [Right Arm] 78 Blood Pressure Position Blood Pressure Position [Right Arm] Lying Pulse Oximetry 99 Oxygen Delivery Method Room Air Room Air Sepsis Recent Fever Within 48 Hours Sepsis New/Unexplained Change in Mental Status Sepsis Action Taken by Nursing VITALS: Vitals are noted on the nurse's note and reviewed by myself. GENERAL: No acute distress, non-diaphoretic. SKIN: Capillary reflex less than 2 seconds. HEAD: No scalp tenderness. No step-offs felt. EARS: Bilateral external auditory canals clear. Bilateral tympanic membranes pearly joiner without erythema or effusion. No hemotympanum. No mendoza sign. No mastoid tenderness. EYES: Pupils equal round and reactive to light and accommodation. Conjunctivae without injection, sclerae without icterus. Extraocular movements intact without pain. No nystagmus. NOSE: Patent, turbinates without inflammation or discharge. No sinus tenderness. No septal hematoma or bleeding. FACE: No facial bone tenderness. Full range of motion of the jaw without tenderness. No facial droop. MOUTH: Mucous membranes moist. Uvula midline. Airway patent. Tongue does not deviate. NECK: Supple without nuchal rigidity. Cervical spine is nontender. Full range of motion of the neck without tenderness and normal strength. HEART: Regular rate and rhythm without murmurs gallops or rubs. LUNGS: Clear to auscultation bilaterally without wheezes, rales or rhonchi. No retractions or accessory muscle use. No chest wall tenderness. ABDOMEN: Positive bowel sounds x 4. Normal tympanic percussion. Soft, nontender, without masses or organomegaly. No guarding or rebound tenderness. MUSCULOSKELETAL: No tenderness of the thoracic or lumbar spine or paraspinal muscles. Full range of motion of the bilateral upper extremities. Strength of the right upper extremity is 4/5 compared to the left which is 5/5. Full range of motion of the left lower extremity and strength is 5/5. The patient has trouble fully lifting the right leg off of the bed, but states that she cannot do this normally. Strength of the right lower extremity is 3/5. Peripheral pulses 3+ and equal. The patient's gait was not assessed initially due to her weakness. NEURO: Patient was alert and oriented to person place and time. Normal mental status exam. Normal sensation to light and sharp touch of the face and bilateral upper and lower extremities. Course Administered Medications Discontinued Medications Gadobutrol (Gadobutrol 65ml Vial) 7.5 ml IV ONCE ONE Stop: 04/28/23 03:13 Last Admin: 04/28/23 03:13 Dose: 7.5 ml Documented By: ROBERTO Sodium Chloride (Nss 1000ml) 1,000 mls @ 999 mls/hr IV .Q1H1M ONE Stop: 04/28/23 00:00 Last Infusion: 04/28/23 01:20 Dose: 0 mls/hr Documented By: Admin: 04/27/23 23:17 Dose: 999 mls/hr Documented By: EVELYN Ioversol (Optiray 320 500ml) 125 ml IV ONCE ONE Stop: 04/27/23 23:53 Last Admin: 04/27/23 23:52 Dose: 113 ml Documented By: ALEX Lorazepam (Lorazepam 0.5 Mg Tab) 0.5 mg PO NOW STA Stop: 04/28/23 02:30 Last Admin: 04/28/23 02:42 Dose: Not Given Documented By: EVELYN Lorazepam (Lorazepam 0.5 Mg Tab) Confirm Administered Dose 0.5 mg .ROUTE .STK- MED ONE Stop: 04/28/23 02:33 Last Admin: 04/28/23 02:40 Dose: 0.5 mg Documented By: EVELYN Meclizine HCl (Meclizine Hcl 25 Mg Tab) 25 mg PO NOW STA Stop: 04/28/23 00:37 Last Admin: 04/28/23 00:42 Dose: 25 mg Documented By: EVELYN Ondansetron HCl (Ondansetron Inj 2 Mg/Ml 2 Ml Vial) 4 mg IV NOW STA Stop: 04/27/23 23:01 Last Admin: 04/27/23 23:18 Dose: 4 mg Documented By: EVELYN Medical Decision Making Differential Diagnosis Differential diagnosis includes CVA, TIA, benign positional vertigo, dehydration, hypovolemia, anemia, tumor, infection, hypoglycemia, electrolyte abnormalities, cardiac sources, intracerebral event, toxicologic, neurologic, as well as other pathologies. Laboratory Data Attestation: I reviewed the patient's lab results. 04/27/23 22:45 04/27/23 22:45 Lab Results 04/27/23 04/27/23 04/27/23 Range/Units 22:45 22:45 22:45 WBC 11.64 H (4.8-10.8) K/ul RBC 5.17 (4.20-5.40) M/uL Hgb 14.9 (12.0-16.0) g/dl Hct 43.3 (37.0-47.0) % MCV 83.8 (80.0-100.0) fL MCH 28.8 (25.0-34.0) pg MCHC 34.4 (32.0-36.0) g/dL RDW Std Deviation 38.6 (36.4-46.3) fL RDW Coeff of Pierre 12.7 (11.5-14.5) % Plt Count 280 (130-400) K/uL MPV 10.9 (9.4-12.4) fL Immature Gran % (Auto) 0.2 % Neut % (Auto) 59.0 % Lymph % (Auto) 31.4 % [place] % (Auto) 7.3 % Eos % (Auto) 1.4 % Baso % (Auto) 0.7 % Neut # (Auto) 6.88 H (1.40-6.50) K/uL Lymph # (Auto) 3.65 H (1.2-3.4) K/uL Webster # (Auto) 0.85 H (0.11-0.59) K/uL Eos # (Auto) 0.16 (0-0.50) K/uL Baso # (Auto) 0.08 (0-0.2) K/uL Immature Gran # (Auto) 0.02 (0.01-0.20) K/uL PT INR APTT PTT Ratio Sodium (136-145) mmol/L Potassium (3.5-5.1) mmol/L Chloride (98-107) mmol/L Carbon Dioxide (21-32) mmol/L Anion Gap (3-11) BUN (6-23) mg/dl Creatinine (0.6-1.2) mg/dl Est Cr Clr Drug Dosing ml/min Est GFR ( Amer) ml/min Est GFR (Non-Af Amer) ml/min BUN/Creatinine Ratio (10-20) Glucose (70-99(Fasting)) mg/dl Calcium (8.6-10.3) mg/dl Magnesium (1.7-2.4) mg/dl Total Bilirubin (0.2-1.0) mg/dl AST (13-39) U/L ALT (7-52) U/L Alkaline Phosphatase (34-104) U/L Troponin I High Sens (0-14) pg/ml Total Protein (6.0-8.3) gm/dl Albumin (3.4-5.0) gm/dl Globulin (2.5-4.0) gm/dl Albumin/Globulin Ratio (0.9-2) TSH 7.636 H (0.300-4.500) uIu/ml Free T4 0.92 (0.61-1.60) ng/dl HCG, Qual Negative (Negative) Urine Color Urine Appearance (Clear) Urine pH (4.5-7.5) Ur Specific [place] (1.000-1.030) Urine Protein (Negative) Urine Glucose (UA) (Negative) Urine Ketones (Negative) Urine Blood (Negative) Urine Nitrite (Negative) Urine Bilirubin (Negative) Urine Urobilinogen (Negative) Ur Leukocyte Esterase (Negative) Urine WBC (Auto) (0-5) /hpf Urine RBC (Auto) (0-4) /hpf U Hyaline Cast (Auto) (0-5) /lpf U Epithel Cells (Auto) (0-5) /lpf Urine Bacteria (Auto) (Negative) Urine Opiates Screen (Neg) Ur Methadone, Qual (Neg) Urine Barbiturates (Neg) Ur Phencyclidine (PCP) (Neg) U Amphetamin/Meth Scrn (Neg) MDMA (Ecstasy) Screen (Neg) U Benzodiazepines Scrn (Neg) Ur Cocaine Metabolite (Neg) U Marijuana (THC) Screen (Neg) SARS-CoV-2, RNA, NAAT (NEGATIVE) 04/27/23 04/27/23 04/27/23 Range/Units 22:45 22:45 23:05 WBC (4.8-10.8) K/ul RBC (4.20-5.40) M/uL Hgb (12.0-16.0) g/dl Hct (37.0-47.0) % MCV (80.0-100.0) fL MCH (25.0-34.0) pg MCHC (32.0-36.0) g/dL RDW Std Deviation (36.4-46.3) fL RDW Coeff of Pierre (11.5-14.5) % Plt Count (130-400) K/uL MPV (9.4-12.4) fL Immature Gran % (Auto) % Neut % (Auto) % Lymph % (Auto) % [place] % (Auto) % Eos % (Auto) % Baso % (Auto) % Neut # (Auto) (1.40-6.50) K/uL Lymph # (Auto) (1.2-3.4) K/uL [place] # (Auto) (0.11-0.59) K/uL Eos # (Auto) (0-0.50) K/uL Baso # (Auto) (0-0.2) K/uL Immature Gran # (Auto) (0.01-0.20) K/uL PT Cancelled INR Cancelled APTT Cancelled PTT Ratio Cancelled Sodium 138 (136-145) mmol/L Potassium 3.5 (3.5-5.1) mmol/L Chloride 103 (98-107) mmol/L Carbon Dioxide 26 (21-32) mmol/L Anion Gap 9 (3-11) BUN 12 (6-23) mg/dl Creatinine 0.75 (0.6-1.2) mg/dl Est Cr Clr Drug Dosing 98.9 ml/min Est GFR ( Amer) 118.0 ml/min Est GFR (Non-Af Amer) 101.8 ml/min BUN/Creatinine Ratio 16.0 (10-20) Glucose 117 H (70-99(Fasting)) mg/dl Calcium 9.7 (8.6-10.3) mg/dl Magnesium 2.0 (1.7-2.4) mg/dl Total Bilirubin 0.3 (0.2-1.0) mg/dl AST 19 (13-39) U/L ALT 16 (7-52) U/L Alkaline Phosphatase 53 (34-104) U/L Troponin I High Sens 2.7 (0-14) pg/ml Total Protein 7.2 (6.0-8.3) gm/dl Albumin 4.9 (3.4-5.0) gm/dl Globulin 2.3 L (2.5-4.0) gm/dl Albumin/Globulin Ratio 2.1 H (0.9-2) TSH (0.300-4.500) uIu/ml Free T4 (0.61-1.60) ng/dl HCG, Qual (Negative) Urine Color Yellow Urine Appearance Clear (Clear) Urine pH 8.0 H (4.5-7.5) Ur Specific [place] 1.005 (1.000-1.030) Urine Protein Negative (Negative) Urine Glucose (UA) Negative (Negative) Urine Ketones Negative (Negative) Urine Blood 1+ H (Negative) Urine Nitrite Negative (Negative) Urine Bilirubin Negative (Negative) Urine Urobilinogen Negative (Negative) Ur Leukocyte Esterase Trace H (Negative) Urine WBC (Auto) 1-5 (0-5) /hpf Urine RBC (Auto) 0-4 (0-4) /hpf U Hyaline Cast (Auto) 0 (0-5) /lpf U Epithel Cells (Auto) 10-20 H (0-5) /lpf Urine Bacteria (Auto) Negative (Negative) Urine Opiates Screen (Neg) Ur Methadone, Qual (Neg) Urine Barbiturates (Neg) Ur Phencyclidine (PCP) (Neg) U Amphetamin/Meth Scrn (Neg) MDMA (Ecstasy) Screen (Neg) U Benzodiazepines Scrn (Neg) Ur Cocaine Metabolite (Neg) U Marijuana (THC) Screen (Neg) SARS-CoV-2, RNA, NAAT (NEGATIVE) 04/27/23 04/28/23 04/28/23 Range/Units 23:05 00:26 00:45 WBC (4.8-10.8) K/ul RBC (4.20-5.40) M/uL Hgb (12.0-16.0) g/dl Hct (37.0-47.0) % MCV (80.0-100.0) fL MCH (25.0-34.0) pg MCHC (32.0-36.0) g/dL RDW Std Deviation (36.4-46.3) fL RDW Coeff of Pierre (11.5-14.5) % Plt Count (130-400) K/uL MPV (9.4-12.4) fL Immature Gran % (Auto) % Neut % (Auto) % Lymph % (Auto) % [place] % (Auto) % Eos % (Auto) % Baso % (Auto) % Neut # (Auto) (1.40-6.50) K/uL Lymph # (Auto) (1.2-3.4) K/uL [place] # (Auto) (0.11-0.59) K/uL Eos # (Auto) (0-0.50) K/uL Baso # (Auto) (0-0.2) K/uL Immature Gran # (Auto) (0.01-0.20) K/uL PT 14.5 H INR 1.3 H APTT 38.4 H PTT Ratio 1.4 Sodium (136-145) mmol/L Potassium (3.5-5.1) mmol/L Chloride (98-107) mmol/L Carbon Dioxide (21-32) mmol/L Anion Gap (3-11) BUN (6-23) mg/dl Creatinine (0.6-1.2) mg/dl Est Cr Clr Drug Dosing ml/min Est GFR ( Amer) ml/min Est GFR (Non-Af Amer) ml/min BUN/Creatinine Ratio (10-20) Glucose (70-99(Fasting)) mg/dl Calcium (8.6-10.3) mg/dl Magnesium (1.7-2.4) mg/dl Total Bilirubin (0.2-1.0) mg/dl AST (13-39) U/L ALT (7-52) U/L Alkaline Phosphatase (34-104) U/L Troponin I High Sens (0-14) pg/ml Total Protein (6.0-8.3) gm/dl Albumin (3.4-5.0) gm/dl Globulin (2.5-4.0) gm/dl Albumin/Globulin Ratio (0.9-2) TSH (0.300-4.500) uIu/ml Free T4 (0.61-1.60) ng/dl HCG, Qual (Negative) Urine Color Urine Appearance (Clear) Urine pH (4.5-7.5) Ur Specific [place] (1.000-1.030) Urine Protein (Negative) Urine Glucose (UA) (Negative) Urine Ketones (Negative) Urine Blood (Negative) Urine Nitrite (Negative) Urine Bilirubin (Negative) Urine Urobilinogen (Negative) Ur Leukocyte Esterase (Negative) Urine WBC (Auto) (0-5) /hpf Urine RBC (Auto) (0-4) /hpf U Hyaline Cast (Auto) (0-5) /lpf U Epithel Cells (Auto) (0-5) /lpf Urine Bacteria (Auto) (Negative) Urine Opiates Screen Neg (Neg) Ur Methadone, Qual Neg (Neg) Urine Barbiturates Neg (Neg) Ur Phencyclidine (PCP) Neg (Neg) U Amphetamin/Meth Scrn Neg (Neg) MDMA (Ecstasy) Screen Neg (Neg) U Benzodiazepines Scrn Neg (Neg) Ur Cocaine Metabolite Neg (Neg) U Marijuana (THC) Screen Neg (Neg) SARS-CoV-2, RNA, NAAT NEGATIVE (NEGATIVE) Imaging Data Radiologist's Impression: Head CT 04/27/23 23:02 Exam(s): CT HEAD Without Contrast EXAM: CT Head Without Intravenous Contrast CLINICAL HISTORY: Reason for exam: neuro deficit, subacute stroke suspected. TECHNIQUE: Axial computed tomography images of the head/brain without intravenous contrast. CTDI is 37.22 mGy and DLP is 546.36 mGy-cm. Automated exposure control was utilized for the study. A dose lowering technique was utilized adhering to the principles of ALARA. COMPARISON: Head CT 07/27/2022 FINDINGS: Brain: No intracranial hemorrhage, mass-effect, or edema. Chronic infarct in the left cerebellum. Ventricles: Unremarkable. Bones/joints: Unremarkable. No fracture. Soft tissues: Unremarkable. Sinuses: No acute sinusitis. Mastoid air cells: Unremarkable as visualized. IMPRESSION: No acute intracranial abnormality. Electronically signed by: Raza Sorenson MD 04/28/23 00:17 AM Head CTA 04/27/23 23:02 Exam(s): CTA HEAD With Contrast IV Amt: 113 ML OPTIRAY 320 EXAM: CT Angiography Head With Intravenous Contrast CLINICAL HISTORY: Reason for exam: neuro deficit, subacute stroke suspected. TECHNIQUE: Axial computed tomographic angiography images of the head with intravenous contrast. CTDI is 37.22 mGy and DLP is 546.36 mGy-cm. Automated exposure control was utilized for the study. A dose lowering technique was utilized adhering to the principles of ALARA. MIP reconstructed images were created and reviewed. CONTRAST: Patient received 113 ML OPTIRAY 320 of IV contrast COMPARISON: None. FINDINGS: Right internal carotid artery: Patent. Right anterior cerebral artery: Patent. Right middle cerebral artery: Patent. Right posterior cerebral artery: Patent. Right vertebral artery: Patent. Left internal carotid artery: Patent. Left anterior cerebral artery: Patent. Left middle cerebral artery: Patent. Left posterior cerebral artery: Patent. Left vertebral artery: Patent. Basilar artery: Patent. Other: IMPRESSION: 1. No aneurysm or large vessel occlusion. Electronically signed by: Andra Mims M.D. 04/28/23 00:24 AM Neck CTA 04/27/23 23:02 Exam(s): CTA NECK With Contrast IV Amt: 113 ML OPTIRAY 3220 EXAM: CT Angiography Neck With Intravenous Contrast CLINICAL HISTORY: Reason for exam: neuro deficit, subacute stroke suspected. TECHNIQUE: Routine carotid CT angiography protocol was performed with intravenous contrast. NASCET criteria using the distal ICAs for comparison were used for evaluation of stenoses. CTDI is 13.36 mGy and DLP is 501.68 mGy-cm. Automated exposure control was utilized for the study. A dose lowering technique was utilized adhering to the principles of ALARA. MIP reconstructed images were created and reviewed. CONTRAST: Patient received 113 ML OPTIRAY 3220 of IV contrast COMPARISON: None. FINDINGS: VASCULATURE: Right common carotid artery: Patent. Right internal carotid artery: Patent. Right vertebral artery: Patent. Left common carotid artery: Patent. Left internal carotid artery: Patent. Left vertebral artery: Patent. Other: IMPRESSION: 1. No dissection, occlusion, or significant stenosis. CAROTID STENOSIS REFERENCE USING NASCET CRITERIA: % ICA stenosis = (1 - narrowest ICA diameter/diameter of distal cervical ICA) x 100. Mild - <50% stenosis. Moderate - 50-69% stenosis. Severe - 70-94% stenosis. Near occlusion - 95-99% stenosis. Occluded - 100% stenosis. Electronically signed by: Andra Mims M.D. 04/28/23 00:23 AM MDM Narrative I examined the patient. A stroke alert was not initiated because the patient's symptoms have been ongoing since 04/25/2023 and her symptoms have started to improve since arrival. Last known well was 04/24/2023 at 3 PM per patient. An IV lock was placed and labs were drawn. She was given 1 L normal saline solution bolus. She was given Zofran 4 mg IV for her nausea. She declined any medication for pain. After return of the CT scans, she was given meclizine 25 mg p.o. for the dizziness with some improvement. Continuous color television console monitor: Order was placed for continuous color television console monitor. Patient was placed on the color television console monitor and continuous pulse ox. Patient was noted to be in normal sinus rhythm at an initial rate of 84 bpm per my interpretation. EKG per my interpretation showed normal sinus rhythm at 79 bpm with no acute ST or T wave changes. White blood cell count slightly elevated 11.64. Normal hemoglobin at 14.9 and normal platelet count of 280. PT 14.5, INR 1.3, APTT 38.4, PTT ratio 1.4. Glucose 117, but CMP otherwise normal. High-sensitivity troponin normal. TSH elevated at 7.636, but free T4 normal. Serum hCG was negative. Urinalysis without evidence for UTI. Urine drug screen negative. COVID-negative. Chest x-ray was interpreted by myself as poor positioning and respiratory effort, but no obvious acute cardiopulmonary abnormalities. Radiology report is still pending. CT scans of the head as well as CTA of the head and neck were interpreted by myself and read by radiology as above and show no acute intracranial abnormality, no aneurysm or large vessel disease, and no dissection, occlusion, or significant stenosis. The patient initially had decreased strength in the right upper extremity as well as right lower extremity compared to the left. On reassessment, the patient's right upper extremity weakness had resolved and she had normal and equal range of motion and strength compared to the left. The patient still had decreased strength and range of motion of the right lower extremity, but it had significantly improved since initial evaluation. The patient has residual deficit in the right lower extremity from her previous stroke. I had a mean ingful discussion about this patient with Dr. Betts who agrees with my assessment and the treatment plan. We feel the patient requires further inpatient evaluation and treatment of TIA r/o CVA. I spoke with the on-call hospitalist who agreed to admit the patient. Please refer to their dictation. The patient's care was transferred in stable condition. Impression & Plan TIA (transient ischemic attack), Hemiparesis affecting right side as late effect of cerebrovascular accident, Dizziness Discharge Plan Visit Data Chief Complaint: Neuro Symptoms/Deficit Stated Complaint: NAUSEA, RIGHT SIDED WEAKNESS ED Provider: Lisa Betts ED Midlevel Provider: Vicki Mitchell Discharge Problem: TIA (transient ischemic attack), Hemiparesis affecting right side as late effect of cerebrovascular accident, Dizziness Patient Disposition: Admitted As Inpatient Condition: Good Discharge Instructions Interventions: ED Discharge Assessment Last Done: 04/28/23 02:46 Forms Stand Alone Forms: [facility] [employer] Prescriptions Prescriptions: No Action amlodipine 10 mg tablet 10 mg PO DAILY alprazolam 0.5 mg tablet 0.5 mg PO DAILY PRN (Reason: Anxiety) fluoxetine 60 mg tablet 60 mg PO QPM atorvastatin 40 mg Tablet 40 mg PO PM losartan-hydrochlorothiazide 50-12.5 mg tablet 1 tab PO QAM Xarelto 20 mg tablet 20 mg PO QPM Rx Instructions: must administer with evening meal pt states she takes 30 minutes prior to evening meal clopidogrel [Plavix] 75 mg tablet 75 mg PO QPM Referrals Referrals: Ashley Pitt MD [Primary Care Provider] -
[2023-04-27] MEDS ORDERED: ONDANSETRON INJ 2 MG/ML 2 ML VIAL IV STA (23:00)
[2023-04-27] MEDS ORDERED: SODIUM CHLORIDE 0.9% 1000ML 1,000 ML IV ONE (23:00)
[2023-04-27 23:25] LABS: Pregnancy Test, Serum Negative (Negative)
[2023-04-27 23:32] LABS: Basophils # (auto) 0.08 K/uL (0-0.2); Basophils % (auto) 0.7 %; Eosinophils # (auto) 0.16 K/uL (0-0.50); Eosinophils % (auto) 1.4 %; Hematocrit (blood only) 43.3 % (37.0-47.0); Hemoglobin 14.9 g/dl (12.0-16.0); Immature Granulocytes # (auto) 0.02 K/uL (0.01-0.20); Immature Granulocytes % (auto) 0.2 %; Lymphocytes # (auto) 3.65 K/uL (1.2-3.4); Lymphocytes % (auto) 31.4 %; Mean Corpuscular Hemoglobin 28.8 pg (25.0-34.0); Mean Corpuscular Hgb Conc 34.4 g/dL (32.0-36.0); Mean Corpuscular Volume 83.8 fL (80.0-100.0); Mean Platelet Volume 10.9 fL (9.4-12.4); Monocytes # (auto) 0.85 K/uL (0.11-0.59); Monocytes % (auto) 7.3 %; Neutrophils # (auto) 6.88 K/uL (1.40-6.50); Platelet Count 280 K/uL (130-400); RDW Coefficient of Variation 12.7 % (11.5-14.5); RDW Standard Deviation 38.6 fL (36.4-46.3); Red Blood Count 5.17 M/uL (4.20-5.40); White Blood Count 11.64 K/ul (4.8-10.8)
[2023-04-27 23:33] LABS: Albumin Globulin Ratio 2.1 (0.9-2); Albumin Level 4.9 gm/dl (3.4-5.0); Bilirubin,Total 0.3 mg/dl (0.2-1.0); Calcium 9.7 mg/dl (8.6-10.3); Creatinine Clr Calc Pharmacy 98.9 ml/min; Est GFR (Non-African American) 101.8 ml/min; Globulin 2.3 gm/dl (2.5-4.0); Potassium 3.5 mmol/L (3.5-5.1); Total Protein 7.2 gm/dl (6.0-8.3)
[2023-04-27 23:35] LABS: Appearance Urine Clear (Clear); Bilirubin Urine Negative (Negative); Blood Urine 1+ (Negative); Color Urine Yellow; Glucose Urine UA Negative (Negative); Ketones Urine Negative (Negative); Leukocyte Esterase Urine Trace (Negative); Nitrite Urine Negative (Negative); Protein Urine Negative (Negative); Specific Gravity Urine 1.005 (1.000-1.030); Urobilinogen Urine Negative (Negative)
[2023-04-27 23:40] LABS: Troponin I High Sensitivity 2.7 pg/ml (0-14)
[2023-04-27 23:48] LABS: Bacteria Urine Automated Negative (Negative); Cast Urine Automated 0 /lpf (0-5); RBC Urine Automated 0-4 /hpf (0-4)
[2023-04-27] MEDS ORDERED: OPTIRAY 320 500ml IV ONE (23:52)
[2023-04-27 23:59] LABS: Thyroid Stimulating Hormone 7.636 uIu/ml (0.300-4.500)
--- NOTE | 2023-04-28 00:19 | CT Scan Report ---
Exam(s): CT HEAD Without Contrast EXAM: CT Head Without Intravenous Contrast CLINICAL HISTORY: Reason for exam: neuro deficit, subacute stroke suspected. TECHNIQUE: Axial computed tomography images of the head/brain without intravenous contrast. CTDI is 37.22 mGy and DLP is 546.36 mGy-cm. Automated exposure control was utilized for the study. A dose lowering technique was utilized adhering to the principles of ALARA. COMPARISON: Head CT 07/27/2022 FINDINGS: Brain: No intracranial hemorrhage, mass-effect, or edema. Chronic infarct in the left cerebellum. Ventricles: Unremarkable. Bones/joints: Unremarkable. No fracture. Soft tissues: Unremarkable. Sinuses: No acute sinusitis. Mastoid air cells: Unremarkable as visualized. IMPRESSION: No acute intracranial abnormality. Electronically signed by: Raza Sorenson MD 04/28/23 00:17 AM
[2023-04-28 00:23] LABS: Barbiturates, Urine Neg (Neg); Benzodiazepine, Urine Neg (Neg); Cocaine, Urine Neg (Neg); MDMA (Ecstacy), Urine Neg (Neg); Opiate, Urine Neg (Neg); Phencyclidine, Urine Neg (Neg)
--- NOTE | 2023-04-28 00:24 | CT Scan Report ---
Exam(s): CTA NECK With Contrast IV Amt: 113 ML OPTIRAY 3220 EXAM: CT Angiography Neck With Intravenous Contrast CLINICAL HISTORY: Reason for exam: neuro deficit, subacute stroke suspected. TECHNIQUE: Routine carotid CT angiography protocol was performed with intravenous contrast. NASCET criteria using the distal ICAs for comparison were used for evaluation of stenoses. CTDI is 13.36 mGy and DLP is 501.68 mGy-cm. Automated exposure control was utilized for the study. A dose lowering technique was utilized adhering to the principles of ALARA. MIP reconstructed images were created and reviewed. CONTRAST: Patient received 113 ML OPTIRAY 3220 of IV contrast COMPARISON: None. FINDINGS: VASCULATURE: Right common carotid artery: Patent. Right internal carotid artery: Patent. Right vertebral artery: Patent. Left common carotid artery: Patent. Left internal carotid artery: Patent. Left vertebral artery: Patent. Other: IMPRESSION: 1. No dissection, occlusion, or significant stenosis. CAROTID STENOSIS REFERENCE USING NASCET CRITERIA: % ICA stenosis = (1 - narrowest ICA diameter/diameter of distal cervical ICA) x 100. Mild - <50% stenosis. Moderate - 50-69% stenosis. Severe - 70-94% stenosis. Near occlusion - 95-99% stenosis. Occluded - 100% stenosis. Electronically signed by: Andra Mims M.D. 04/28/23 00:23 AM
--- NOTE | 2023-04-28 00:26 | CT Scan Report ---
Exam(s): CTA HEAD With Contrast IV Amt: 113 ML OPTIRAY 320 EXAM: CT Angiography Head With Intravenous Contrast CLINICAL HISTORY: Reason for exam: neuro deficit, subacute stroke suspected. TECHNIQUE: Axial computed tomographic angiography images of the head with intravenous contrast. CTDI is 37.22 mGy and DLP is 546.36 mGy-cm. Automated exposure control was utilized for the study. A dose lowering technique was utilized adhering to the principles of ALARA. MIP reconstructed images were created and reviewed. CONTRAST: Patient received 113 ML OPTIRAY 320 of IV contrast COMPARISON: None. FINDINGS: Right internal carotid artery: Patent. Right anterior cerebral artery: Patent. Right middle cerebral artery: Patent. Right posterior cerebral artery: Patent. Right vertebral artery: Patent. Left internal carotid artery: Patent. Left anterior cerebral artery: Patent. Left middle cerebral artery: Patent. Left posterior cerebral artery: Patent. Left vertebral artery: Patent. Basilar artery: Patent. Other: IMPRESSION: 1. No aneurysm or large vessel occlusion. Electronically signed by: Andra Mims M.D. 04/28/23 00:24 AM
[2023-04-28 00:33] LABS: Amphetamines+Metham, Urine Neg (Neg); Methadone, Urine Neg (Neg)
[2023-04-28] MEDS ORDERED: MECLIZINE HCL 25 MG TAB PO STA (00:36)
[2023-04-28 00:41] LABS: T4 Free Thyroxine 0.92 ng/dl (0.61-1.60)
[2023-04-28 01:03] LABS: INR 1.3 (0.9-1.1); Partial Thromboplastin Ratio 1.4; Partial Thromboplastin Time 38.4 Seconds (21.0-31.0); Prothrombin Time 14.5 Seconds (9.0-12.0)
--- NOTE | 2023-04-28 01:34 | History & Physical Report ---
Date of Service April 28, 2023 Assessment & Plan (1) TIA (transient ischemic attack): Plan: Hx vertebrobasilar artery cerebellar stroke, on chronic Xarelto and Plavix therapy Presented with worse RLE weakness from baseline (uses cane to walk and has chronic R foot drop) Symptoms atypical for acute CVA, symptoms started 04/25, improved, worsened again 04/27, and are nearly resolved at this time Did not fall within TPA window CT Head, CTA Head/Neck without acute pathology MRI Brain ordered, consult Neurology if evidence of acute CVA Continue antiplatelet agent, statin, BP control A1c and lipid panel, Echo with bubble study ordered Overall suspect TIA/stroke recrudescence as reason for admission overall, continue to monitor for worsening pathology PT and OT ordered, anticipate home without needs if continues to clinically improve Missed appointment with Neuro in December, will need follow up appointment (2) Hemiparesis and other late effects of cerebrovascular accident: Plan: see above (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 This has been ruled out with outpatient testing performed by [facility] Heme/Onc provider (records scanned into chart) (4) Dissection, vertebral artery: Plan: History of, NOT acute problem (5) HTN (hypertension): Plan: Continue amlodipine, losartan, HCTZ (6) Prediabetes: Plan: History of, 03/2022 with A1c of 5.8% Repeat ordered, follow up with PCP (consider metformin vs. dietary modification) History of Present Illness Chief Complaint: Right lower extremity weakness Primary Care Provider: Ashley Pitt MD 38-year-old female past medical history significant for CVA with residual right lower extremity weakness requiring walking with a cane, hypertension presented to the ER for worsening of right lower extremity weakness compared to baseline the first started on 04/25. Symptoms resolved over the course of that day, returned again in similar fashion on 04/27. Symptoms have improved since arrival to ER. Reports some decreased function of RLE compared to her baseline but better than earlier this evening. On my interview she reports improvement in nausea, denies SOB, chest pain, neck pain. CT Head, CTA Head/Neck without evidence of acute CVA. Labwork relatively unremarkable with elevated TSH with normal FT4. Given patient's robust history of CVA at early age, improvement but not resolution in RLE weakness compared to baseline, hospitalist service consulted for observation and further evaluation of CVA rule out. Allergies Allergy/AdvReac Type Severity Reaction Status Date / Time prednisone Allergy Intermediate Unverified 08/11/22 09:22 Home Medications Medication Instructions Recorded Confirmed Type atorvastatin 40 mg tablet 40 mg PO PM 10/08/18 04/27/23 History alprazolam 0.5 mg tablet 0.5 mg PO DAILY PRN Anxiety 08/31/19 04/27/23 History amlodipine 10 mg tablet 10 mg PO DAILY 05/17/20 04/27/23 History fluoxetine 60 mg tablet 60 mg PO QPM 08/11/22 04/27/23 History clopidogrel 75 mg tablet (Plavix) 75 mg PO QPM 04/27/23 04/27/23 History losartan 50 mg-hydrochlorothiazide 1 tab PO QAM 04/27/23 04/27/23 History 12.5 mg tablet rivaroxaban 20 mg tablet (Xarelto) 20 mg PO QPM 04/27/23 04/27/23 History Past Med/Surg History Medical History (Updated 04/28/23 @ 02:11 by Jody Hannah DO) Acute ischemic vertebrobasilar artery cerebellar stroke Atypical lobular 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, 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 HTN (hypertension) Hypertension Hypokalemia Ischemic stroke Mesenteric artery stenosis Migraine Migraine Mild sleep apnea Paresthesia Stroke-like symptom Syncope Valvular heart disease Surgical History H/O tubal ligation H/O: hysterectomy Vaginal, cystocele and apical vault suspension [facility] [place] Family History Mother Hypertension Father Hypertension Social History Smoking Status: Current every day smoker Tobacco Type: E-cigarettes / Vaping Second Hand Exposure: No; Do You Dip or Chew Tobacco: No; Hx Alcohol Use: No Hx Substance Use: No Preferred Language: Divehi Communication Ability: Effective Visual Impairment: No Limitations Hearing Ability: Normal Dobby Loom Fixer Required: No Beliefs That Will Affect Care: None marital status: Current Living Situation: Family current occupational status: employed and disabled current occupation: [employer] from home, 20 hours per week, Feels Safe at Home: Yes Assistive Devices: Cane and Walker Review of Systems Review of Systems: All systems reviewed & are unremarkable except as noted in Subjective Physical Exam Constitutional: WD/WN, vitals as above Respiratory: normal respiratory effort, lungs clear to auscultation Cardiovascular: RRR, no murmur, no edema Gastrointestinal (Abdomen): normal bowel sounds, soft, nontender, no hepatosplenomegaly Skin: no rashes, warm and dry Neurologic: bilateral upper extremity and face motor function RLE 4/5 strength, LLE 5/5 strength sensation intact bilateral UE/LE/face PERRL No tremor Psychiatric: A+Ox3, euthymic affect Results & Data Results & Data Vital Signs (Past 12 Hours) Vital Signs Temp Pulse Pulse Resp BP BP Pulse Ox 04/27/23 23:23 72 17 118/72 97 04/27/23 22:47 81 04/27/23 22:40 36.8 C 82 18 117/83 94 O2 Del Method 04/27/23 23:23 Room Air 04/27/23 22:47 04/27/23 22:40 Room Air PG Care Time/CCT Total # of Minutes Spent Total Time Spent with Patient: Total time spent is greater than 50% in coordination of care (as documented) at patient's floor/unit and/or counseling patient: Coding Level of Care Code 84120 INT INP/OBS CARE 3/75MIN Diagnoses TIA (transient ischemic attack) G45.9 Hemiparesis and other late effects of cerebrovascular accident I69.359; I69.398 terminal operations manager current use of anticoagulant therapy Z79.01 Dissection, vertebral artery I77.74 HTN (hypertension) I10 Prediabetes R73.03
[2023-04-28] MEDS ORDERED: LORazepam 0.5 MG TAB PO STA (02:29)
[2023-04-28] MEDS ORDERED: LORazepam 0.5 MG TAB ONE (02:32)
[2023-04-28] MEDS ORDERED: GADOBUTROL 65ML VIAL IV ONE (03:12)
[2023-04-28] MEDS ORDERED: ACETAMINOPHEN 325 MG TAB PO PRN (03:39)
[2023-04-28] MEDS ORDERED: ASPIRIN 81 MG CHEW PO ONE (03:39)
[2023-04-28] MEDS ORDERED: ONDANSETRON INJ 2 MG/ML 2 ML VIAL IV PRN (03:39)
[2023-04-28] MEDS ORDERED: PHARMACIST DISCHARGE MED REC CONSULT PRN (03:39)
[2023-04-28] MEDS ORDERED: ALPRAZolam 0.5 MG TABLET PO PRN (03:39)
--- NOTE | 2023-04-28 03:47 | Magnetic Resonance Report ---
Exam(s): MRI HEAD W/WO Contrast IV Amt: 7.5cc gadavist EXAM: MR Head Without and With Intravenous Contrast CLINICAL HISTORY: Reason for exam: eval for acute CVA, RLE weakness/vertigo. TECHNIQUE: Magnetic resonance images of the head/brain without and with intravenous contrast in multiple planes. Mild motion artifact. CONTRAST: Patient received 7.5cc Gadavist of IV contrast COMPARISON: Noncontrast head CT done earlier. FINDINGS: Brain: No mass-effect or acute infarct. No acute or chronic hemorrhage. Prominent sulci left cerebellum, probable encephalomalacia. No abnormal enhancement. Mild diffuse atrophy given patient's age group. Ventricles: No hydrocephalus or midline shift. Bones/joints: No calvarial lesions. Soft tissues: No scalp hematoma. Sinuses: Clear. Mastoid air cells: No mastoid effusion. IMPRESSION: 1. Small area of chronic encephalomalacia left cerebellum, and mild diffuse atrophy for this age group. 2. No abnormal enhancement, acute infarct, bleed, or acute intracranial abnormality. Electronically signed by: Andra Mims M.D. 04/28/23 03:46 AM
[2023-04-28 06:47] LABS: Chol HDL Ratio 2.5 (0-5)
--- NOTE | 2023-04-28 06:56 | XRay Report ---
XR chest 1V portable HISTORY: 38 years-old Female neuro deficit, subacute stroke suspected acute shortness of breath COMPARISON: 07/27/2022 TECHNIQUE: AP view of the chest FINDINGS: Hypoinflation. Cardiomediastinal and hilar silhouettes are unchanged. Mild subsegmental bibasilar ate lectasis. No pneumothorax, pleural effusion or overt pulmonary edema. Bones appear grossly intact. IMPRESSION: No acute process. ACT 112: Negative or not required by law. The above report was generated using voice recognition software. It may contain grammatical, syntax o r spelling errors. Electronically signed by: Ventura Marrero M.D. 04/28/2023 6:55 AM
--- NOTE | 2023-04-28 06:59 | Hospitalist Progress Note ---
Date of Service April 28, 2023 Assessment & Plan Admission and Anticipated Discharge Date Admission Date: April 28, 2023 Results & Data Results & Data Vital Signs (Past 12 Hours) Vital Signs Temp Pulse Pulse Resp BP BP BP 04/28/23 04:19 63 04/28/23 04:00 04/28/23 04:00 36.6 C 67 18 107/71 04/28/23 03:39 36.6 C 67 18 107/71 04/28/23 02:46 04/28/23 01:56 65 17 102/66 04/27/23 23:23 72 17 118/72 04/27/23 22:47 81 04/27/23 22:40 36.8 C 82 18 117/83 Pulse Ox O2 Del Method 04/28/23 04:19 04/28/23 04:00 Room Air 04/28/23 04:00 98 Room Air 04/28/23 03:39 98 Room Air 04/28/23 02:46 Room Air 04/28/23 01:56 99 Room Air 04/27/23 23:23 97 Room Air 04/27/23 22:47 04/27/23 22:40 94 Room Air
[2023-04-28 07:12] LABS: Estimated Average Glucose 108 mg/dl; Hemoglobin A1C 5.4 % (4.5-5.6)
[2023-04-28] MEDS ORDERED: LOSARTAN/HCTZ 50/12.5MG TAB PO SCH (09:00)
[2023-04-28] MEDS ORDERED: amLODIPine BESYLATE 5 MG TAB PO SCH (09:00)
--- NOTE | 2023-04-28 11:34 | Discharge Summary ---
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 Symptoms resolved over the course of that day, returned again in similar fashion on 04/27. Symptoms have improved since arrival to ER. Reports some decreased function of RLE compared to her baseline but better than earlier this evening. On my interview she reports improvement in nausea, denies SOB, chest pain, neck pain. CT Head, CTA Head/Neck without evidence of acute CVA. Labwork relatively unremarkable with elevated TSH with normal FT4. Given patient's robust history of CVA at early age, improvement but not resolution in RLE weakness compared to baseline, hospitalist service consulted for observation and further evaluation of CVA rule out. Admission Exam Per Admitting Provider Constitutional: WD/WN, vitals as above Respiratory: normal respiratory effort, lungs clear to auscultation Cardiovascular: RRR, no murmur, no edema Gastrointestinal (Abdomen): normal bowel sounds, soft, nontender, no hepatosplenomegaly Skin: no rashes, warm and dry Neurologic: bilateral upper extremity and face motor function RLE 4/5 strength, LLE 5/5 strength sensation intact bilateral UE/LE/face PERRL No tremor Psychiatric: A+Ox3, euthymic affect Principal Diagnosis Complex migraine Discharge Exam Constitutional WD/WN, vitals as above no acute distress Eyes + anicteric sclerae ENMT external ear and nose normal, oropharynx normal Neck trachea midline Respiratory normal respiratory effort, lungs clear to auscultation Cardiovascular RRR, no murmur, no edema Heart Sounds: normal S1 and normal S2 Gastrointestinal (Abdomen) normal bowel sounds, soft, nontender, no hepatosplenomegaly Musculoskeletal Head/Neck/Chest: normocephalic and head atraumatic Extremities: + abnormal strength (4/5 in R UE and LE) Skin no rashes, warm and dry Neurologic CN's II-XI intact bilaterally and moves all extremities Speech / Cognition: normal speech Psychiatric A+Ox3, euthymic affect Discharge Data Allergies Allergy/AdvReac Type Severity Reaction Status Date / Time prednisone Allergy Intermediate Unverified 08/11/22 09:22 Consultations 04/28/23 01:38 ED Decision to Admit Stat 04/28/23 09:57 Consult Neurology Routine Ordered Studies 04/27/23 23:02 CT angio head w con Stat CT angio neck with con Stat CT head/brain wo con Stat 04/28/23 01:56 MRI Brain [MR brain wo/w con] Routine Chest X-Ray 04/27/23 23:02 XR chest 1V portable HISTORY: 38 years-old Female neuro deficit, subacute stroke suspected acute shortness of breath COMPARISON: 07/27/2022 TECHNIQUE: AP view of the chest FINDINGS: Hypoinflation. Cardiomediastinal and hilar silhouettes are unchanged. Mild subsegmental bibasilar atelectasis. No pneumothorax, pleural effusion or overt pulmonary edema. Bones appear grossly intact. IMPRESSION: No acute process. ACT 112: Negative or not required by law. The above report was generated using voice recognition software. It may contain grammatical, syntax or spelling errors. Electronically signed by: Ventura Marrero M.D. 04/28/2023 6:[address] 04/27/23 23:02 Exam(s): CT HEAD Without Contrast EXAM: CT Head Without Intravenous Contrast CLINICAL HISTORY: Reason for exam: neuro deficit, subacute stroke suspected. TECHNIQUE: Axial computed tomography images of the head/brain without intravenous contrast. CTDI is 37.22 mGy and DLP is 546.36 mGy-cm. Automated exposure control was utilized for the study. A dose lowering technique was utilized adhering to the principles of ALARA. COMPARISON: Head CT 07/27/2022 FINDINGS: Brain: No intracranial hemorrhage, mass-effect, or edema. Chronic infarct in the left cerebellum. Ventricles: Unremarkable. Bones/joints: Unremarkable. No fracture. Soft tissues: Unremarkable. Sinuses: No acute sinusitis. Mastoid air cells: Unremarkable as visualized. IMPRESSION: No acute intracranial abnormality. Electronically signed by: Raza Soernson MD 04/28/23 00:17 AM Head CTA 04/27/23 23:02 Exam(s): CTA HEAD With Contrast IV Amt: 113 ML OPTIRAY 320 EXAM: CT Angiography Head With Intravenous Contrast CLINICAL HISTORY: Reason for exam: neuro deficit, subacute stroke suspected. TECHNIQUE: Axial computed tomographic angiography images of the head with intravenous contrast. CTDI is 37.22 mGy and DLP is 546.36 mGy-cm. Automated exposure control was utilized for the study. A dose lowering technique was utilized adhering to the principles of ALARA. MIP reconstructed images were created and reviewed. CONTRAST: Patient received 113 ML OPTIRAY 320 of IV contrast COMPARISON: None. FINDINGS: Right internal carotid artery: Patent. Right anterior cerebral artery: Patent. Right middle cerebral artery: Patent. Right posterior cerebral artery: Patent. Right vertebral artery: Patent. Left internal carotid artery: Patent. Left anterior cerebral artery: Patent. Left middle cerebral artery: Patent. Left posterior cerebral artery: Patent. Left vertebral artery: Patent. Basilar artery: Patent. Other: IMPRESSION: 1. No aneurysm or large vessel occlusion. Electronically signed by: Andra Mims M.D. 04/28/23 00:24 AM Neck CTA 04/27/23 23:02 Exam(s): CTA NECK With Contrast IV Amt: 113 ML OPTIRAY 3220 EXAM: CT Angiography Neck With Intravenous Contrast CLINICAL HISTORY: Reason for exam: neuro deficit, subacute stroke suspected. TECHNIQUE: Routine carotid CT angiography protocol was performed with intravenous contrast. NASCET criteria using the distal ICAs for comparison were used for evaluation of stenoses. CTDI is 13.36 mGy and DLP is 501.68 mGy-cm. Automated exposure control was utilized for the study. A dose lowering technique was utilized adhering to the principles of ALARA. MIP reconstructed images were created and reviewed. CONTRAST: Patient received 113 ML OPTIRAY 3220 of IV contrast COMPARISON: None. FINDINGS: VASCULATURE: Right common carotid artery: Patent. Right internal carotid artery: Patent. Right vertebral artery: Patent. Left common carotid artery: Patent. Left internal carotid artery: Patent. Left vertebral artery: Patent. Other: IMPRESSION: 1. No dissection, occlusion, or significant stenosis. CAROTID STENOSIS REFERENCE USING NASCET CRITERIA: % ICA stenosis = (1 - narrowest ICA diameter/diameter of distal cervical ICA) x 100. Mild - <50% stenosis. Moderate - 50-69% stenosis. Severe - 70-94% stenosis. Near occlusion - 95-99% stenosis. Occluded - 100% stenosis. Electronically signed by: Andra Mims M.D. 04/28/23 00:23 AM Brain MRI 04/28/23 01:56 Exam(s): MRI HEAD W/WO Contrast IV Amt: 7.5cc gadavist EXAM: MR Head Without and With Intravenous Contrast CLINICAL HISTORY: Reason for exam: eval for acute CVA, RLE weakness/vertigo. TECHNIQUE: Magnetic resonance images of the head/brain without and with intravenous contrast in multiple planes. Mild motion artifact. CONTRAST: Patient received 7.5cc Gadavist of IV contrast COMPARISON: Noncontrast head CT done earlier. FINDINGS: Brain: No mass-effect or acute infarct. No acute or chronic hemorrhage. Prominent sulci left cerebellum, probable encephalomalacia. No abnormal enhancement. Mild diffuse atrophy given patient's age group. Ventricles: No hydrocephalus or midline shift. Bones/joints: No calvarial lesions. Soft tissues: No scalp hematoma. Sinuses: Clear. Mastoid air cells: No mastoid effusion. IMPRESSION: 1. Small area of chronic encephalomalacia left cerebellum, and mild diffuse atrophy for this age group. 2. No abnormal enhancement, acute infarct, bleed, or acute intracranial abnormality. Electronically signed by: Andra Mims M.D. 04/28/23 03:46 AM Lab Results 04/27/23 04/27/23 04/27/23 Range/Units 22:45 22:45 22:45 WBC 11.64 H (4.8-10.8) K/ul RBC 5.17 (4.20-5.40) M/uL Hgb 14.9 (12.0-16.0) g/dl Hct 43.3 (37.0-47.0) % MCV 83.8 (80.0-100.0) fL MCH 28.8 (25.0-34.0) pg MCHC 34.4 (32.0-36.0) g/dL RDW Std Deviation 38.6 (36.4-46.3) fL RDW Coeff of Pierre 12.7 (11.5-14.5) % Plt Count 280 (130-400) K/uL MPV 10.9 (9.4-12.4) fL Immature Gran % (Auto) 0.2 % Neut % (Auto) 59.0 % Lymph % (Auto) 31.4 % Baca % (Auto) 7.3 % Eos % (Auto) 1.4 % Baso % (Auto) 0.7 % Neut # (Auto) 6.88 H (1.40-6.50) K/uL Lymph # (Auto) 3.65 H (1.2-3.4) K/uL Baca # (Auto) 0.85 H (0.11-0.59) K/uL Eos # (Auto) 0.16 (0-0.50) K/uL Baso # (Auto) 0.08 (0-0.2) K/uL Immature Gran # (Auto) 0.02 (0.01-0.20) K/uL PT INR APTT PTT Ratio Sodium (136-145) mmol/L Potassium (3.5-5.1) mmol/L Chloride (98-107) mmol/L Carbon Dioxide (21-32) mmol/L Anion Gap (3-11) BUN (6-23) mg/dl Creatinine (0.6-1.2) mg/dl Est Cr Clr Drug Dosing ml/min Est GFR ( Amer) ml/min Est GFR (Non-Af Amer) ml/min BUN/Creatinine Ratio (10-20) Glucose (70-99(Fasting)) mg/dl Estimat Average Glucose mg/dl Hemoglobin A1c (4.5-5.6) % Calcium (8.6-10.3) mg/dl Magnesium (1.7-2.4) mg/dl Total Bilirubin (0.2-1.0) mg/dl AST (13-39) U/L ALT (7-52) U/L Alkaline Phosphatase (34-104) U/L Troponin I High Sens (0-14) pg/ml Total Protein (6.0-8.3) gm/dl Albumin (3.4-5.0) gm/dl Globulin (2.5-4.0) gm/dl Albumin/Globulin Ratio (0.9-2) Triglycerides (0-150) mg/dl Cholesterol (0-200) mg/dl LDL Cholesterol, Calc mg/dl VLDL Cholesterol, Calc (0-30) mg/dl HDL Cholesterol mg/dl Cholesterol/HDL Ratio (0-5) TSH 7.636 H (0.300-4.500) uIu/ml Free T4 0.92 (0.61-1.60) ng/dl HCG, Qual Negative (Negative) Urine Color Urine Appearance (Clear) Urine pH (4.5-7.5) Ur Specific [place] (1.000-1.030) Urine Protein (Negative) Urine Glucose (UA) (Negative) Urine Ketones (Negative) Urine Blood (Negative) Urine Nitrite (Negative) Urine Bilirubin (Negative) Urine Urobilinogen (Negative) Ur Leukocyte Esterase (Negative) Urine WBC (Auto) (0-5) /hpf Urine RBC (Auto) (0-4) /hpf U Hyaline Cast (Auto) (0-5) /lpf U Epithel Cells (Auto) (0-5) /lpf Urine Bacteria (Auto) (Negative) Urine Opiates Screen (Neg) Ur Methadone, Qual (Neg) Urine Barbiturates (Neg) Ur Phencyclidine (PCP) (Neg) U Amphetamin/Meth Scrn (Neg) MDMA (Ecstasy) Screen (Neg) U Benzodiazepines Scrn (Neg) Ur Cocaine Metabolite (Neg) U Marijuana (THC) Screen (Neg) SARS-CoV-2, RNA, NAAT (NEGATIVE) 04/27/23 04/27/23 04/27/23 Range/Units 22:45 22:45 23:05 WBC (4.8-10.8) K/ul RBC (4.20-5.40) M/uL Hgb (12.0-16.0) g/dl Hct (37.0-47.0) % MCV (80.0-100.0) fL MCH (25.0-34.0) pg MCHC (32.0-36.0) g/dL RDW Std Deviation (36.4-46.3) fL RDW Coeff of Pierre (11.5-14.5) % Plt Count (130-400) K/uL MPV (9.4-12.4) fL Immature Gran % (Auto) % Neut % (Auto) % Lymph % (Auto) % Baca % (Auto) % Eos % (Auto) % Baso % (Auto) % Neut # (Auto) (1.40-6.50) K/uL Lymph # (Auto) (1.2-3.4) K/uL [place] # (Auto) (0.11-0.59) K/uL Eos # (Auto) (0-0.50) K/uL Baso # (Auto) (0-0.2) K/uL Immature Gran # (Auto) (0.01-0.20) K/uL PT Cancelled INR Cancelled APTT Cancelled PTT Ratio Cancelled Sodium 138 (136-145) mmol/L Potassium 3.5 (3.5-5.1) mmol/L Chloride 103 (98-107) mmol/L Carbon Dioxide 26 (21-32) mmol/L Anion Gap 9 (3-11) BUN 12 (6-23) mg/dl Creatinine 0.75 (0.6-1.2) mg/dl Est Cr Clr Drug Dosing 98.9 ml/min Est GFR ( Amer) 118.0 ml/min Est GFR (Non-Af Amer) 101.8 ml/min BUN/Creatinine Ratio 16.0 (10-20) Glucose 117 H (70-99(Fasting)) mg/dl Estimat Average Glucose mg/dl Hemoglobin A1c (4.5-5.6) % Calcium 9.7 (8.6-10.3) mg/dl Magnesium 2.0 (1.7-2.4) mg/dl Total Bilirubin 0.3 (0.2-1.0) mg/dl AST 19 (13-39) U/L ALT 16 (7-52) U/L Alkaline Phosphatase 53 (34-104) U/L Troponin I High Sens 2.7 (0-14) pg/ml Total Protein 7.2 (6.0-8.3) gm/dl Albumin 4.9 (3.4-5.0) gm/dl Globulin 2.3 L (2.5-4.0) gm/dl Albumin/Globulin Ratio 2.1 H (0.9-2) Triglycerides (0-150) mg/dl Cholesterol (0-200) mg/dl LDL Cholesterol, Calc mg/dl VLDL Cholesterol, Calc (0-30) mg/dl HDL Cholesterol mg/dl Cholesterol/HDL Ratio (0-5) TSH (0.300-4.500) uIu/ml Free T4 (0.61-1.60) ng/dl HCG, Qual (Negative) Urine Color Yellow Urine Appearance Clear (Clear) Urine pH 8.0 H (4.5-7.5) Ur Specific [place] 1.005 (1.000-1.030) Urine Protein Negative (Negative) Urine Glucose (UA) Negative (Negative) Urine Ketones Negative (Negative) Urine Blood 1+ H (Negative) Urine Nitrite Negative (Negative) Urine Bilirubin Negative (Negative) Urine Urobilinogen Negative (Negative) Ur Leukocyte Esterase Trace H (Negative) Urine WBC (Auto) 1-5 (0-5) /hpf Urine RBC (Auto) 0-4 (0-4) /hpf U Hyaline Cast (Auto) 0 (0-5) /lpf U Epithel Cells (Auto) 10-20 H (0-5) /lpf Urine Bacteria (Auto) Negative (Negative) Urine Opiates Screen (Neg) Ur Methadone, Qual (Neg) Urine Barbiturates (Neg) Ur Phencyclidine (PCP) (Neg) U Amphetamin/Meth Scrn (Neg) MDMA (Ecstasy) Screen (Neg) U Benzodiazepines Scrn (Neg) Ur Cocaine Metabolite (Neg) U Marijuana (THC) Screen (Neg) SARS-CoV-2, RNA, NAAT (NEGATIVE) 04/27/23 04/28/23 04/28/23 Range/Units 23:05 00:26 00:45 WBC (4.8-10.8) K/ul RBC (4.20-5.40) M/uL Hgb (12.0-16.0) g/dl Hct (37.0-47.0) % MCV (80.0-100.0) fL MCH (25.0-34.0) pg MCHC (32.0-36.0) g/dL RDW Std Deviation (36.4-46.3) fL RDW Coeff of Pierre (11.5-14.5) % Plt Count (130-400) K/uL MPV (9.4-12.4) fL Immature Gran % (Auto) % Neut % (Auto) % Lymph % (Auto) % Baca % (Auto) % Eos % (Auto) % Baso % (Auto) % Neut # (Auto) (1.40-6.50) K/uL Lymph # (Auto) (1.2-3.4) K/uL Baca # (Auto) (0.11-0.59) K/uL Eos # (Auto) (0-0.50) K/uL Baso # (Auto) (0-0.2) K/uL Immature Gran # (Auto) (0.01-0.20) K/uL PT 14.5 H INR 1.3 H APTT 38.4 H PTT Ratio 1.4 Sodium (136-145) mmol/L Potassium (3.5-5.1) mmol/L Chloride (98-107) mmol/L Carbon Dioxide (21-32) mmol/L Anion Gap (3-11) BUN (6-23) mg/dl Creatinine (0.6-1.2) mg/dl Est Cr Clr Drug Dosing ml/min Est GFR ( Amer) ml/min Est GFR (Non-Af Amer) ml/min BUN/Creatinine Ratio (10-20) Glucose (70-99(Fasting)) mg/dl Estimat Average Glucose mg/dl Hemoglobin A1c (4.5-5.6) % Calcium (8.6-10.3) mg/dl Magnesium (1.7-2.4) mg/dl Total Bilirubin (0.2-1.0) mg/dl AST (13-39) U/L ALT (7-52) U/L Alkaline Phosphatase (34-104) U/L Troponin I High Sens (0-14) pg/ml Total Protein (6.0-8.3) gm/dl Albumin (3.4-5.0) gm/dl Globulin (2.5-4.0) gm/dl Albumin/Globulin Ratio (0.9-2) Triglycerides (0-150) mg/dl Cholesterol (0-200) mg/dl LDL Cholesterol, Calc mg/dl VLDL Cholesterol, Calc (0-30) mg/dl HDL Cholesterol mg/dl Cholesterol/HDL Ratio (0-5) TSH (0.300-4.500) uIu/ml Free T4 (0.61-1.60) ng/dl HCG, Qual (Negative) Urine Color Urine Appearance (Clear) Urine pH (4.5-7.5) Ur Specific [place] (1.000-1.030) Urine Protein (Negative) Urine Glucose (UA) (Negative) Urine Ketones (Negative) Urine Blood (Negative) Urine Nitrite (Negative) Urine Bilirubin (Negative) Urine Urobilinogen (Negative) Ur Leukocyte Esterase (Negative) Urine WBC (Auto) (0-5) /hpf Urine RBC (Auto) (0-4) /hpf U Hyaline Cast (Auto) (0-5) /lpf U Epithel Cells (Auto) (0-5) /lpf Urine Bacteria (Auto) (Negative) Urine Opiates Screen Neg (Neg) Ur Methadone, Qual Neg (Neg) Urine Barbiturates Neg (Neg) Ur Phencyclidine (PCP) Neg (Neg) U Amphetamin/Meth Scrn Neg (Neg) MDMA (Ecstasy) Screen Neg (Neg) U Benzodiazepines Scrn Neg (Neg) Ur Cocaine Metabolite Neg (Neg) U Marijuana (THC) Screen Neg (Neg) SARS-CoV-2, RNA, NAAT NEGATIVE (NEGATIVE) 04/28/23 04/28/23 Range/Units 05:56 05:56 WBC (4.8-10.8) K/ul RBC (4.20-5.40) M/uL Hgb (12.0-16.0) g/dl Hct (37.0-47.0) % MCV (80.0-100.0) fL MCH (25.0-34.0) pg MCHC (32.0-36.0) g/dL RDW Std Deviation (36.4-46.3) fL RDW Coeff of Pierre (11.5-14.5) % Plt Count (130-400) K/uL MPV (9.4-12.4) fL Immature Gran % (Auto) % Neut % (Auto) % Lymph % (Auto) % Baca % (Auto) % Eos % (Auto) % Baso % (Auto) % Neut # (Auto) (1.40-6.50) K/uL Lymph # (Auto) (1.2-3.4) K/uL Baca # (Auto) (0.11-0.59) K/uL Eos # (Auto) (0-0.50) K/uL Baso # (Auto) (0-0.2) K/uL Immature Gran # (Auto) (0.01-0.20) K/uL PT INR APTT PTT Ratio Sodium (136-145) mmol/L Potassium (3.5-5.1) mmol/L Chloride (98-107) mmol/L Carbon Dioxide (21-32) mmol/L Anion Gap (3-11) BUN (6-23) mg/dl Creatinine (0.6-1.2) mg/dl Est Cr Clr Drug Dosing ml/min Est GFR ( Amer) ml/min Est GFR (Non-Af Amer) ml/min BUN/Creatinine Ratio (10-20) Glucose (70-99(Fasting)) mg/dl Estimat Average Glucose 108 mg/dl Hemoglobin A1c 5.4 (4.5-5.6) % Calcium (8.6-10.3) mg/dl Magnesium (1.7-2.4) mg/dl Total Bilirubin (0.2-1.0) mg/dl AST (13-39) U/L ALT (7-52) U/L Alkaline Phosphatase (34-104) U/L Troponin I High Sens (0-14) pg/ml Total Protein (6.0-8.3) gm/dl Albumin (3.4-5.0) gm/dl Globulin (2.5-4.0) gm/dl Albumin/Globulin Ratio (0.9-2) Triglycerides 87 (0-150) mg/dl Cholesterol 89 (0-200) mg/dl LDL Cholesterol, Calc 37 mg/dl VLDL Cholesterol, Calc 17 (0-30) mg/dl HDL Cholesterol 35 mg/dl Cholesterol/HDL Ratio 2.5 (0-5) TSH (0.300-4.500) uIu/ml Free T4 (0.61-1.60) ng/dl HCG, Qual (Negative) Urine Color Urine Appearance (Clear) Urine pH (4.5-7.5) Ur Specific [place] (1.000-1.030) Urine Protein (Negative) Urine Glucose (UA) (Negative) Urine Ketones (Negative) Urine Blood (Negative) Urine Nitrite (Negative) Urine Bilirubin (Negative) Urine Urobilinogen (Negative) Ur Leukocyte Esterase (Negative) Urine WBC (Auto) (0-5) /hpf Urine RBC (Auto) (0-4) /hpf U Hyaline Cast (Auto) (0-5) /lpf U Epithel Cells (Auto) (0-5) /lpf Urine Bacteria (Auto) (Negative) Urine Opiates Screen (Neg) Ur Methadone, Qual (Neg) Urine Barbiturates (Neg) Ur Phencyclidine (PCP) (Neg) U Amphetamin/Meth Scrn (Neg) MDMA (Ecstasy) Screen (Neg) U Benzodiazepines Scrn (Neg) Ur Cocaine Metabolite (Neg) U Marijuana (THC) Screen (Neg) SARS-CoV-2, RNA, NAAT (NEGATIVE) Hospital Course (1) Dizziness: (2) HTN (hypertension): (3) Migraine: (4) Acute ischemic vertebrobasilar artery cerebellar stroke: (5) Hemiparesis and other late effects of cerebrovascular accident: Plan Complex migraine - To clarify past medical history, there had been some question in the past of if patient had antiphospholipid syndrome and/or Lupus anticoagulant. This has been ruled out with outpatient testing performed by [facility]c [facility] - Hx vertebrobasilar artery cerebellar stroke, on chronic Xarelto and Plavix therapy - Presented with worse RLE weakness from baseline (uses cane to walk and has chronic R foot drop) - Symptoms atypical for acute CVA, symptoms started 04/25, improved, worsened again 04/27, and are nearly resolved at this time - CT Head, CTA Head/Neck and MRI brain without acute pathology Continue antiplatelet agent, statin, BP control - lipid panel and A1c normal. - Back to baseline at time of discharge - Neuro consulted and recommends to follow up as an outpatient with neurologist. Recommended to stop Xarelto, which was held on discharge. Total Time Total Time Spent Total Time Spent (In Minutes): 20 Discharge Plan Discharge Items Patient Disposition: Home - Self-Care Reason For Visit: RLE WEAKNESS, R/O CVA Discharge Diagnosis: Complicated Migraines Activity: Resume your previous activity Non-emergency contact: Primary Care Provider and Neurologist Call non-emergency contact if: you have any medication questions, your pain is unusual for you, your pain is concerning for you and your temperature is above 101.5 Follow-up/Referrals: Angie Barton PA-C [Physician Technical Director] - 05/05/23 11:00 am (in 1-2 weeks- APPT WITH ADILENE HUERTA IN [place] OFFICE.) Ashley Pitt MD [Primary Care Provider] - (PATIENT SAYS SHE WILL CALL TO SCHEDULE THIS APPT.) Diet: Regular Addtl Attending Provider Instructions: You were admitted to the hospital for Complicated Migraines vs TIA. A discharge summary will be sent to your primary care physician to ensure continuity of care. Please bring this discharge summary with you to your next office appointment so that your provider can review it at that time. Follow-up appointments: * Make a follow-up appointment with your PCP within the next week. It is very important that you follow up with them shortly after discharge from the hospital. * We have requested a follow-up appointment with Neurology in 1-2 weeks. Please call their office if you do not hear from them. * Keep all your follow-up appointments as already scheduled. If you cannot make an appointment, notify your provider. Medications: Your medication list has been reviewed and reconciled upon discharge to ensure accuracy and continuity of care. An updated list of all your medications is included with your hospital discharge paperwork. Please review this list closely, and make note of any changes. * Please stop taking your Xarelto. Follow up with your neurologist for further management. * If you have any issues filling these prescriptions, please call [phone] and ask to leave a message for Dr. aBrba. * Take your medications as instructed; do not skip a dose of your medicines. Make sure all of your doctors know every medicine you are taking (including jpkx-upm-roiocne medicines, vitamins, and supplements). Call your primary care provider before taking any new medicines (including over- the-counter medicines, vitamins, and supplements), because some of these may interact with your current medications, or may make your symptoms worse. Tell your primary care provider if you cannot afford your medications. CONTACT YOUR PRIMARY CARE PROVIDER if you experience any of the following: * Worsening of symptoms * Fever, chills, or fatigue * Difficulty following your treatment plan, or difficulty taking medications CALL 911 OR GO TO THE EMERGENCY DEPARTMENT if you experience any of the following: * Sudden, severe abdominal pain or nausea/vomiting * Severe chest pain, or chest pain that radiates (moves) to your jaw or arm * Sudden, severe shortness of breath or difficulty breathing Thank you for allowing us to participate in your care. Pending Studies at Discharge: No Stand-Alone Forms: [facility], Medications to Prevent Stroke Medications and DC Order Prescriptions: Continued amlodipine 10 mg tablet 10 mg PO DAILY alprazolam 0.5 mg tablet 0.5 mg PO DAILY PRN (Reason: Anxiety) fluoxetine 60 mg tablet 60 mg PO QPM atorvastatin 40 mg Tablet 40 mg PO PM losartan-hydrochlorothiazide 50-12.5 mg tablet 1 tab PO QAM clopidogrel [Plavix] 75 mg tablet 75 mg PO QPM Discontinued Xarelto 20 mg tablet 20 mg PO QPM Rx Instructions: must administer with evening meal pt states she takes 30 minutes prior to evening meal Discharge Orders: Discharge Order (Routine); Ordered 04/28/23 Ordered By: Angel Barba Admission Data Admit Date/Time: 04/28/23 01:56 Attending Provider: Sam Abarca Admit Provider: Jody Hannah Primary Care Provider: Ashley Pitt Other Providers: Jody Hannah Other Interventions: Discharge Summary Assessment (RN) Last Done: 04/28/23 15:03 Supervising Physician Co-Signing Physician Notes ATTESTATION I also saw the patient and confirmed camargo portions of the history and exam. I agree with the impression and plan in the resident documentation, and as summarized below. I also personally discussed the case with the neurology [facility] consultant. Upon our mid afternoon exam, the patient complains only of a mild headache which she attributes to lack of sleep. Her focal neurological deficits described upon admission have completely resolved. She has been seen by neurology and she is comfortable/reassured with the diagnosis, and happy to be able to discontinue her anticoagulant which was quite expensive for her. EXAM 116/76, 67, 16, 36.8, 96 on room air Pleasant alert. No acute distress appreciated Mucous membranes are pink and moist Neck is supple Heart regular rate and rhythm Lungs clear with nonlabored respirations Extremities without edema; no calf tenderness appreciated. DATA Imaging Brain MRI dated 04/28/2023 shows a small area of chronic encephalomalacia in the left cerebellum, and mild diffuse atrophy, age-related. No abnormal enhancement, acute infarct, bleed, or acute intracranial abnormalities appreciated. Neck CTA dated 04/27/2023 shows no dissection, occlusion, or significant stenosis. Head CTA dated 04/27/2023 shows no aneurysm or large vessel occlusion Noncontrast head CT dated 04/27/2023 shows no acute abnormality One-view portable chest x-ray dated 04/27/2023 shows no acute abnormality IMPRESSION & PLAN Recrudescence History of vertebral artery dissection Appreciate neurology consultation Discontinue Xarelto Continue Plavix Recommend outpatient appointment with her primary neurologist (HOWARD) with whom she follows, but not seen recently (greater than 1 year) Additional per resident documentation
--- NOTE | 2023-04-28 11:37 | Neurology Consultation ---
Date of Consultation April 28, 2023 Assessment & Plan (1) Dissection, vertebral artery: Patient presents with recrudesence of her prior stroke symptoms. 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 We know that dual therapy with anticoag and antiplatelet increases the risk of hemorrhage significantly. Recommend stopping xarelto. Even with a connective tissue disorder, antiplatelet is sufficient. This was not a cryptogenic stroke 5 years ago and all subsequent imaging was negative. Provided reassurance to the patient. -- D/C xarelto -- Continue plavix -- No further neurologic workup Telehealth Consultation Telehealth Information Telehealth Information: I performed this visit using a real-time telehealth connection between my location and the patients location ([facility]). After co nnecting through interactive tele-video, patient was identified by name and date of and/or wristband check.Patient (or authorized healthcare major account representative) was informed that this was a telemedicine visit and it was being conducted confidentially over secure lines. My office door was closed and no one else was present in the room with me.Patient (or authorized healthcare major account representative) provided consent to proceed with the visit, expressed an understanding of privacy and security of the telemedicine visit, and gave permission to have a hospital major account representative in the room in order to assist with the visit and to conduct portions of the visit, as needed. I informed the patient (or authorized healthcare major account representative) that I reviewed their record and presented the opportunity for them to ask any questions regarding the visit today. The patient agreed to participate. History of Present Illness Reason for Consultation: R sided weakness Requesting Physician: Dr. 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 She has been on xarelto and plavix since then with multiple presentations for fluctuating R sided weakness, specifically her leg. Since the last stroke she was left with residual R leg weakness, needing a quad cane and AFO for ambulation. Otherwise with multiple >5 representations over the past 5 years she has never had another positive MRI and her CTA shows healed and normal vertebral arteries. She presents with worsening weakness of her R leg on 04/25, then again yesterday. Since then the weakness has resolved back to her baseline. She denies any new stroke symptoms, no new weakness, numbness, speech or vision changes. No headache with this episode. Allergies Allergy/AdvReac Type Severity Reaction Status Date / Time prednisone Allergy Intermediate Unverified 08/11/22 09:22 Home Medications Medication Instructions Recorded Confirmed Type atorvastatin 40 mg tablet 40 mg PO PM 10/08/18 04/27/23 History alprazolam 0.5 mg tablet 0.5 mg PO DAILY PRN Anxiety 08/31/19 04/27/23 History amlodipine 10 mg tablet 10 mg PO DAILY 05/17/20 04/27/23 History fluoxetine 60 mg tablet 60 mg PO QPM 08/11/22 04/27/23 History clopidogrel 75 mg tablet (Plavix) 75 mg PO QPM 04/27/23 04/27/23 History losartan 50 mg-hydrochlorothiazide 1 tab PO QAM 04/27/23 04/27/23 History 12.5 mg tablet rivaroxaban 20 mg tablet (Xarelto) 20 mg PO QPM 04/27/23 04/27/23 History Patient History Medical History (Updated 04/28/23 @ 03:30 by Vicki Mitchell PA-C) Acute ischemic vertebrobasilar artery cerebellar stroke Atypical lobular 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, 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 HTN (hypertension) Hypertension Hypokalemia Ischemic stroke Mesenteric artery stenosis Migraine Migraine Mild sleep apnea Paresthesia Stroke-like symptom Syncope Valvular heart disease Surgical History H/O tubal ligation H/O: hysterectomy Vaginal, cystocele and apical vault suspension [facility] [place] 01/2022 Family History Mother Hypertension Father Hypertension Social History Smoking Status: Current every day smoker Tobacco Type: E-cigarettes / Vaping Second Hand Exposure: No; Do You Dip or Chew Tobacco: No; Hx Alcohol Use: Yes Alcohol type: other Hx Substance Use: No Preferred Language: Mongolian Communication Ability: Effective Visual Impairment: No Limitations Hearing Ability: Normal Opthalmic Tech Required: No Beliefs That Will Affect Care: None marital status: Current Living Situation: Family current occupational status: employed and disabled current occupation: [employer] from home, 20 hours per week, Feels Safe at Home: Yes Assistive Devices: Cane and Walker Review of Systems +R leg weakness Physical Exam Neurological Examination: Mental Status: Awake and alert. Oriented to person, place, and time. Fluent. Comprehension intact. Affect appropriate. Cranial Nerves: II: santos grossly intact. III/IV/: Versions intact without nystagmus, no gaze preference. V: Facial sensation symmetric to light touch VII: Facial expression symmetric VIII: Hearing intact to voice IX/X: Palate elevates symmetrically XI: Shoulder shrug symmetric XII: Tongue midline Motor: Strength was and antigravity throughout, R foot drop noted. Pronator drift was absent. There were no abnormal movements. Reflexes: Unable to assess over telemedicine Results & Data Vital Signs (Past 12 Hours) Vital Signs Temp Pulse Pulse Pulse Resp BP BP 04/28/23 07:56 36.7 C 66 16 100/67 04/28/23 07:37 82 04/28/23 04:19 63 04/28/23 04:00 04/28/23 04:00 36.6 C 67 18 107/71 04/28/23 03:39 36.6 C 67 18 107/71 04/28/23 02:46 04/28/23 01:56 65 17 102/66 04/27/23 23:23 72 17 118/72 Pulse Ox O2 Del Method 04/28/23 07:56 96 Room Air 04/28/23 07:37 04/28/23 04:19 04/28/23 04:00 Room Air 04/28/23 04:00 98 Room Air 04/28/23 03:39 98 Room Air 04/28/23 02:46 Room Air 04/28/23 01:56 99 Room Air 04/27/23 23:23 97 Room Air Laboratory Results Abnormal lab results 04/27/23 04/27/23 04/27/23 Range/Units 22:45 22:45 22:45 WBC 11.64 H (4.8-10.8) K/ul Neut # (Auto) 6.88 H (1.40-6.50) K/uL Lymph # (Auto) 3.65 H (1.2-3.4) K/uL [place] # (Auto) 0.85 H (0.11-0.59) K/uL PT (9.0-12.0) Seconds INR (0.9-1.1) APTT (21.0-31.0) Seconds Glucose 117 H (70-99(Fasting)) mg/dl Globulin 2.3 L (2.5-4.0) gm/dl Albumin/Globulin Ratio 2.1 H (0.9-2) TSH 7.636 H (0.300-4.500) uIu/ml Urine pH (4.5-7.5) Urine Blood (Negative) Ur Leukocyte Esterase (Negative) U Epithel Cells (Auto) (0-5) /lpf 04/27/23 04/28/23 Range/Units 23:05 00:26 WBC (4.8-10.8) K/ul Neut # (Auto) (1.40-6.50) K/uL Lymph # (Auto) (1.2-3.4) K/uL [place] # (Auto) (0.11-0.59) K/uL PT 14.5 H (9.0-12.0) Seconds INR 1.3 H (0.9-1.1) APTT 38.4 H (21.0-31.0) Seconds Glucose (70-99(Fasting)) mg/dl Globulin (2.5-4.0) gm/dl Albumin/Globulin Ratio (0.9-2) TSH (0.300-4.500) uIu/ml Urine pH 8.0 H (4.5-7.5) Urine Blood 1+ H (Negative) Ur Leukocyte Esterase Trace H (Negative) U Epithel Cells (Auto) 10-20 H (0-5) /lpf Diagnostic Findings Chest X-Ray 04/27/23 23:02 XR chest 1V portable HISTORY: 38 years-old Female neuro deficit, subacute stroke suspected acute shortness of breath COMPARISON: 07/27/2022 TECHNIQUE: AP view of the chest FINDINGS: Hypoinflation. Cardiomediastinal and hilar silhouettes are unchanged. Mild subsegmental bibasilar atelectasis. No pneumothorax, pleural effusion or overt pulmonary edema. Bones appear grossly intact. IMPRESSION: No acute process. ACT 112: Negative or not required by law. The above report was generated using voice recognition software. It may contain grammatical, syntax or spelling errors. Electronically signed by: Ventura Marrero M.D. 04/28/2023 6:[address] 04/27/23 23:02 Exam(s): CT HEAD Without Contrast EXAM: CT Head Without Intravenous Contrast CLINICAL HISTORY: Reason for exam: neuro deficit, subacute stroke suspected. TECHNIQUE: Axial computed tomography images of the head/brain without intravenous contrast. CTDI is 37.22 mGy and DLP is 546.36 mGy-cm. Automated exposure control was utilized for the study. A dose lowering technique was utilized adhering to the principles of ALARA. COMPARISON: Head CT 07/27/2022 FINDINGS: Brain: No intracranial hemorrhage, mass-effect, or edema. Chronic infarct in the left cerebellum. Ventricles: Unremarkable. Bones/joints: Unremarkable. No fracture. Soft tissues: Unremarkable. Sinuses: No acute sinusitis. Mastoid air cells: Unremarkable as visualized. IMPRESSION: No acute intracranial abnormality. Electronically signed by: Raza Sorenson MD 04/28/23 00:17 AM Head CTA 04/27/23 23:02 Exam(s): CTA HEAD With Contrast IV Amt: 113 ML OPTIRAY 320 EXAM: CT Angiography Head With Intravenous Contrast CLINICAL HISTORY: Reason for exam: neuro deficit, subacute stroke suspected. TECHNIQUE: Axial computed tomographic angiography images of the head with intravenous contrast. CTDI is 37.22 mGy and DLP is 546.36 mGy-cm. Automated exposure control was utilized for the study. A dose lowering technique was utilized adhering to the principles of ALARA. MIP reconstructed images were created and reviewed. CONTRAST: Patient received 113 ML OPTIRAY 320 of IV contrast COMPARISON: None. FINDINGS: Right internal carotid artery: Patent. Right anterior cerebral artery: Patent. Right middle cerebral artery: Patent. Right posterior cerebral artery: Patent. Right vertebral artery: Patent. Left internal carotid artery: Patent. Left anterior cerebral artery: Patent. Left middle cerebral artery: Patent. Left posterior cerebral artery: Patent. Left vertebral artery: Patent. Basilar artery: Patent. Other: IMPRESSION: 1. No aneurysm or large vessel occlusion. Electronically signed by: Andra Mims M.D. 04/28/23 00:24 AM Neck CTA 04/27/23 23:02 Exam(s): CTA NECK With Contrast IV Amt: 113 ML OPTIRAY 3220 EXAM: CT Angiography Neck With Intravenous Contrast CLINICAL HISTORY: Reason for exam: neuro deficit, subacute stroke suspected. TECHNIQUE: Routine carotid CT angiography protocol was performed with intravenous contrast. NASCET criteria using the distal ICAs for comparison were used for evaluation of stenoses. CTDI is 13.36 mGy and DLP is 501.68 mGy-cm. Automated exposure control was utilized for the study. A dose lowering technique was utilized adhering to the principles of ALARA. MIP reconstructed images were created and reviewed. CONTRAST: Patient received 113 ML OPTIRAY 3220 of IV contrast COMPARISON: None. FINDINGS: VASCULATURE: Right common carotid artery: Patent. Right internal carotid artery: Patent. Right vertebral artery: Patent. Left common carotid artery: Patent. Left internal carotid artery: Patent. Left vertebral artery: Patent. Other: IMPRESSION: 1. No dissection, occlusion, or significant stenosis. CAROTID STENOSIS REFERENCE USING NASCET CRITERIA: % ICA stenosis = (1 - narrowest ICA diameter/diameter of distal cervical ICA) x 100. Mild - <50% stenosis. Moderate - 50-69% stenosis. Severe - 70-94% stenosis. Near occlusion - 95-99% stenosis. Occluded - 100% stenosis. Electronically signed by: Andra Mims M.D. 04/28/23 00:23 AM Brain MRI 04/28/23 01:56 Exam(s): MRI HEAD W/WO Contrast IV Amt: 7.5cc gadavist EXAM: MR Head Without and With Intravenous Contrast CLINICAL HISTORY: Reason for exam: eval for acute CVA, RLE weakness/vertigo. TECHNIQUE: Magnetic resonance images of the head/brain without and with intravenous contrast in multiple planes. Mild motion artifact. CONTRAST: Patient received 7.5cc Gadavist of IV contrast COMPARISON: Noncontrast head CT done earlier. FINDINGS: Brain: No mass-effect or acute infarct. No acute or chronic hemorrhage. Prominent sulci left cerebellum, probable encephalomalacia. No abnormal enhancement. Mild diffuse atrophy given patient's age group. Ventricles: No hydrocephalus or midline shift. Bones/joints: No calvarial lesions. Soft tissues: No scalp hematoma. Sinuses: Clear. Mastoid air cells: No mastoid effusion. IMPRESSION: 1. Small area of chronic encephalomalacia left cerebellum, and mild diffuse atrophy for this age group. 2. No abnormal enhancement, acute infarct, bleed, or acute intracranial abnormality. Electronically signed by: Andra Mims M.D. 04/28/23 03:46 AM
--- NOTE | 2023-04-28 11:54 | Pharmacy Report ---
- Date of Service April 28, 2023 - Pharmacy CVA/TIA Medication Review Medications to Prevent Stroke handout has been added to the patients discharge packet. Antiplatelet(s) * Plavix 75mg PO Daily Cholesterol * High intensity statin: atorvastatin 40 mg daily DVT Prophylaxis * On therapeutic anticoagulation with Xarelto 20mg daily - discontinuing today per neurology. Therapeutic Anticoagulation * Xarelto 20mg PO daily * Neurology recommends DC, L vert dissection is long since healed. Dual therapy with anticoagulate + antiplatelet increases the risk of hemorrhage significantly. Recommended stopping Xarelto - discussed with hospitalist and GREG Bahenarelto. Type 2 Diabetes * Patient does not have T2DM, A1c 5.4%
--- NOTE | 2023-04-28 12:11 | XCELERA ---
[id number]
--- NOTE | 2023-04-28 12:35 | Electrocardiogram Report ---
Test Reason : Blood Pressure : / mmHG Vent. Rate : 079 BPM Atrial Rate : 079 BPM P-R Int : 138 ms QRS Dur : 080 ms QT Int : 392 ms P-R-T Axes : 021 020 002 degrees QTc Int : 449 ms Normal sinus rhythm Normal ECG When compared with ECG of 27-JUL-2022 17:43, No significant change was found Confirmed by Que Loza ([id number]) on 04/28/2023 12:35:32 PM Referred By: REFERRED SELF Confirmed By:Sanjay Loza
[2023-04-28] MEDS ORDERED: STROKE PATIENT DISCHARGE STA (14:55)
[2023-04-28] MEDS ORDERED: RIVAROXABAN 20 MG TAB PO SCH (16:30)
[2023-04-28] MEDS ORDERED: ATORVASTATIN 40 MG TAB PO SCH (21:00)
[2023-04-28] MEDS ORDERED: CLOPIDOGREL BISULFATE 75 MG TAB PO SCH (21:00)
[2023-04-28] MEDS ORDERED: FLUoxetine HCL 20 MG CAP PO SCH (21:00)
== END 2023-04-28 15:15 | disposition home or self-care (01) ==
LOC: ED 22:39 → SUATTDRO 04-28 01:56 → INTOOBSV 04-28 01:56 → 2W 04-28 01:56